=== PATIENT | female | born 2000 | race Caucasian/White ===

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

== ENCOUNTER 2018-01-05 21:24 | Emergency (ER) | payer BC, SELFPAY ==
[2018-01-05 21:25] VITALS: BP 123/92; PULSE 110; RESP 14; TEMP 37.1; O2SAT 98; BMI 23.2
[2018-01-05 22:36] VITALS: PULSE 97
--- NOTE | 2018-01-05 23:18 | ED.DCSUM_ITS ---
- ER Visit Summary Date of Service: 01/05/18 Chief Complaint: Fall History of Present Illness: The patient is a [address] Faulkner and Dr. Ocasio. She is a at 11 weeks. She reports that she tripped and landed on table with her abdomen. She denies any pain. No blow to the head or loss of consciousness. No neck, back, chest, or extremity pain. She has had no vaginal bleeding. She reports that I just want to check on the baby. Physical Examination: Vitals: Stable. Afebrile. Neck: No vertebral tenderness. Full ROM without difficulty. Cleared by NEXUS criteria. Back: No vertebral tenderness. General: A&O x 3. NAD. Cardiovascular exam: Regular rate and rhythm, no murmur, rub or gallop. Respiratory exam: Chest nontender. No crepitus. Clear to auscultation bilaterally. No wheezes or stridor. Abdominal exam: Soft, minimal suprapubic tenderness to palpation, nondistended, normal bowel sounds. No pain in RUQ or LUQ specifically. No peritoneal signs. Extremity: Atraumatic. No pain with range of motion. Test Results: Patient's blood type was a positive. This is from a prior visit and was not repeated. Emergency Department Course and Treatment: Patient had a bedside ultrasound that shows good movement and heartbeat. She was given Tylenol for pain. Treatment Plan: Patient will be discharged instructions to follow-up with Dr. Faulkner if she has vaginal bleeding or any worsening symptoms. Return to the emergency department for any worsening symptoms. Disposition: To home in improved and stable condition. Impression: 1. First trimester . 2. Blunt abdominal trauma. This note was generated with [employer] software. It may contain incorrect words, spelling, and punctuation that were not noted in review of the chart prior to signing ED Disposition - Plan for ED Patient: Disposition: Home or Assisted Living Chief Complaint: Fall Instructions: ED Abdominal Injury Blunt Benign Referrals: Mailck Faulkner MD [STAFF PHYSICIAN] - As Needed
[2018-01-05] MEDS: Acetaminophen 500 MG Tablet 1000 MG PO (23:30)
[2018-01-05 23:33] VITALS: BP 129/75; PULSE 68; RESP 17; O2SAT 99
== END 2018-01-05 23:32 | disposition home or self-care (01) ==
LOC: ED 22:59
PROVIDERS: Emergency Provider Emergency Medicine; PCP Internal Medicine
DX: O99.89 Other specified diseases and conditions complicating pregnancy, childbirth and the puerperium (principal); S39.81XA Other specified injuries of abdomen, initial encounter; W01.0XXA Fall on same level from slipping, tripping and stumbling without subsequent striking against object, initial encounter; Y93.9 Activity, unspecified; Y92.9 Unspecified place or not applicable; O99.331 Smoking (tobacco) complicating pregnancy, first trimester; Z3A.11 11 weeks gestation of pregnancy
CPT/HCPCS: 99283

== ENCOUNTER → 2018-01-23 17:50 | Outpatient (CLI) | payer BC, SELFPAY ==
[2018-01-23 20:59] LABS: Chlamydia Trachomatis by PCR Negative (Negative); Neisserai gonorrhoeae by PCR Negative (Negative); Probe Check PASS; Sample Adequacy Control PASS; Specimen Processing Control PASS
== END ==
PROVIDERS: Visit Provider Obstetrics & Gynecology
DX: A56.00 Chlamydial infection of lower genitourinary tract, unspecified (principal); Z11.3 Encounter for screening for infections with a predominantly sexual mode of transmission
CPT/HCPCS: 87491; 87591

== ENCOUNTER → 2018-05-05 10:57 | Outpatient (CLI) | payer MEDICAID, SELFPAY ==
[2018-05-05 13:43] LABS: Hematocrit 33.7 % (37-47); Hemoglobin 11.3 g/dl (12.0-15.0); Mean Corp Hgb Conc 33.5 g/gl (32-36); Mean Corpuscular Volume 86.6 fL (81-99); Mean Platelet Vol. 9.8 fl (6.2-12.0); Platelet Count 211 K/mm3 (150-450); RBC Distribution Width SD 40.5 fl (35.1-43.9); Red Blood Count 3.89 M/mm3 (4.2-5.4); Scan Indicated on CBC? Y/N NO; White Blood Count 9.4 K/mm3 (4.4-11.0)
[2018-05-05 13:46] LABS: Glucose Challenge Gest 1H 50g 103 mg/dL (70-140)
== END ==
PROVIDERS: Visit Provider Obstetrics & Gynecology
DX: Z34.82 Encounter for supervision of other normal pregnancy, second trimester (principal)
CPT/HCPCS: 36415; 82950; 85027

== ENCOUNTER → 2018-05-26 16:07 | Outpatient (CLI) | payer MEDICAID, SELFPAY ==
[2018-05-26 19:01] LABS: Neisserai gonorrhoeae by PCR Negative (Negative)
[2018-05-26 19:02] LABS: Probe Check PASS
[2018-05-26 19:03] LABS: Chlamydia Trachomatis by PCR POSITIVE (Negative)
--- OUTSIDE RECORDS SUMMARY | 2018-07-08 14:43 | XMS RPT_ITS ---
:2000 Author Organization [facility] Care Team Providers Name Role Phone LALITA, MARK Attending Unavailable MERLIN OCASIO Referring Unavailable MERLIN OCASIO Primary Care Unavailable SEALSADOLFO Referring Unavailable MERLIN OCASIO Primary Care Unavailable ZACH, PETRA T Attending Unavailable ZACH PETRA T Referring Unavailable MERLIN OCASIO Primary Care Unavailable DAVID MOSQUEDA Attending Unavailable Abraham Cr Attending Unavailable JIMMY HENAO Primary Care Unavailable Seals, Adolfo Attending Unavailable Seals, Adolfo Attending Unavailable Abraham Cr Attending Unavailable Seals, Adolfo Attending Unavailable Seals, Adolfo Referring Unavailable Seals, Adolfo Attending Unavailable Seals, Adolfo Attending Unavailable PROBLEMS PROBLEMS DATE TYPE CONDITION / CODE ATTENDING STATUS SOURCE 05/26/2018 Unknown Z11.3 - Encounter Adolfo Faulkner for screening for Community infections with a Hospital predominantly Repository sexual mode of transmission / Z11.3(ICD-10) 05/05/2018 Unknown Z34.82 - Encounter Adolfo Faulkner for supervision of Community other normal Hospital , second Repository trimester / Z34.82(ICD-10) 01/24/2018 Unknown A56.00 - Chlamydial Adolfo Faulkner Active [place] infection of lower [facility] genitourinary Hospital tract, unspecified Repository / A56.00(ICD-10) 12/27/2017 Unknown Z34.81 - Encounter Adolfo Faulkner Active [place] for supervision of [facility] other normal Hospital , first Repository trimester / Z34.81(ICD-10) PROCEDURES PROCEDURES No Procedure Records FoundRESULTS RESULTS EMERGENCY DEPARTMENT Observed: 06/12/2018 Status: F Source: [place] SUMMARY 1:05 AM [facility] H[facility] REPOSITORY [facility] Medical Records Department [address] [place] [address] Emergency Department Summary 06/10/18 0844 MR#: [id number] Acct: [id number] Name: ROSIBEL ESPINOZA Rep #: [id number] : 2000 17 From: Abraham Cr MD PCP: OUT OF TOWN DOCTOR Status: DEP ER - ER Visit Summary Date of Service: 06/10/18 Chief Complaint: Vomiting and diarrhea History of Present Illness: The patient is a [address] Faulkner. She is a at approximately 33 weeks . She reports that she has normal movement. No vaginal bleeding. She reports that she has vomiting and diarrhea began 4:00 yesterday afternoon. She reports is about approximate 10 times. No blood or emesis. 4 episodes of diarrhea that she reports are small amounts. No blood in her stools or black tarry stools. She has intermittent cramping lower abdominal pain that lasts seconds at a time. She describes it as sharp. States that it does not feel like contractions. 7 out of 10 at worst. She is pain-free currently. Pain is worsened by nothing and relieved by nothing. Patient denies sick contacts. Has not been camping out of the country. No possible bad food exposure. Does not drink well water. Physical Examination: Vitals: Stable. Afebrile. General: Well-nourished and well-developed. Head: Normocephalic atraumatic. Neck: Supple, no lymphadenopathy. No JVD. Nontender. Cardiovascular: Tachycardic regular rhythm without murmur. Respiratory: No respiratory distress. Clear to auscultation bilaterally. Abdominal: Soft, mild diffuse lower abdominal tenderness, nondistended, normal bowel sounds. No guarding, rebound, or peritoneal signs. Gravid uterus. Back: Nontender. Extremities: Nontender, no edema. Skin: Normal color, no rash. Neurologic: Alert and oriented 3. Cranial nerves II through XII are intact. Normal strength and sensation. Psych: Normal affect. Test Results: CBC is remarkable for a white count of 12.7, hematocrit of 36.6, segmented neutrophils of 90, and lymphocytes of 3. Chem-7 is marked for a potassium 3.4, glucose 116, calcium of 8.0. Emergency Department Course and Treatment: Patient had an IV placed. She is given a 2 L of normal saline and Zofran IV. She is resting comfortably. She reports that her nausea is much improved. Treatment Plan: Patient will be discharged with Zofran. Instructed to follow-up with her primary care physician in 1-2 days if not improving. Return to the emergency department for any worsening symptoms. Disposition: To home in improved and stable condition. Impression: 1. Vomiting/diarrhea. 2. Third trimester . This note was generated with Promon dictation software. It may contain incorrect words, spelling, and punctuation that were not noted in review of the chart prior to signing ED Disposition - Plan for ED Patient: Chief Complaint: Nausea/Vomiting/Diarrhea Instructions: ED Vomiting Diarrhea Nonspecific Ad Prescriptions: Ondansetron [Zofran Odt] 4 mg PO Q8H PRN PRN #10 tablet PRN Reason: Nausea Referrals: Doctor,Your [STAFF PHYSICIAN] - 1-2 Days if not improving What to do if you have Problems For any increased pain, shortness of breath, bleeding, nausea or vomiting, chest pain, or any unexpected problems, contact your Primary Care Provider. Call [facility] ([phone]) or report to the closest Emergency Room. Call 911 if necessary. 06/12/18 0105 <Electronically signed by Abraham Cr MD> Date Abraham Cr MD Cosigner Signature (If Indicated): Date CC: OUT OF TOWN DOCTOR CBC W/DIFF, AUTOMATED Collected: 06/10/2018 Status: F Source: [place] 9:05 AM [facility] REPOSITORY TYPE CODE TESTS RESULT OUT OF RANGE REFERENCE UNITS LAB L100.1000 4.4-11.0 K/mm3 High WBC 12.7 LAB L100.1200 4.2-5.4 M/mm3 Low RBC 4.16 LAB L100.1300 12.0-15.0 g/dl Normal HGB 12.1 LAB L100.1400 37-47 % Low HCT 36.6 LAB L100.1500 81-99 fL Normal MCV 88.0 LAB L100.1600 27.0-32.0 pg Normal MCH 29.1 LAB L100.1700 32-36 g/gl Normal MCHC 33.1 LAB L100.1810 11.6-14.6 % Normal RDW CV 14.0 LAB L100.1820 35.1-43.9 fl Normal RDW SD 43.7 LAB L100.1900 150-450 K/mm3 Normal PLT 166 LAB L100.2000 6.2-12.0 fl Normal MPV 9.5 LAB L100.2100 47-70 % High NEUT% 90.3 LAB L100.2200 19-41 % Low LY% 3.3 LAB L100.2300 0-10 % Normal MONO% 5.8 LAB L100.2400 0-5 % Normal EO% 0.0 LAB L100.2500 0-1 % Normal BASO% 0.1 LAB L100.2550 0.0-0.9 % Normal IM GRAN % 0.500 Result Comment: IG% - Immature Granulocytes (promyelocytes, myelocytes and metamyelocytes) > 1% indicates that a LEFT SHIFT is Present. LAB L100.2620 2.0-7.7 X10 3/uL High Absolute Neut 11.5 LAB L100.2720 0.83-4.51 X10 3/ul Low Absolute Lymph 0.42 Performed By: #### L100.0100 #### [facility] [place], [id number] BASIC METABOLIC Collected: 06/10/2018 Status: F Source: [place] PROFILE (BMP) 9:05 AM [facility] REPOSITORY TYPE CODE TESTS RESULT OUT OF RANGE REFERENCE UNITS LAB L501.0100 74-106 mg/dL High GLU 116 Result Comment: Fasting Glucose result from 100 to 125 mg/dL suggests IMPAIRED HOMEOSTASIS per A.D.A. criteria. Please note revised GLUCOSE reference range effective 2017. LAB L501.1000 7-18 mg/dL Normal BUN 9 LAB L501.1100 0.55-1.02 mg/dL Normal CREAT,SERUM 0.57 Result Comment: The validity of the calculated GFR AND GFRAA in patients over 70 years has not been determined. Clinical correlation is essential. LAB L501.1110 >60 mL/min Normal EST GFR 144 Result Comment: Non- GFR Calc LAB L501.1115 >60 mL/min Normal EST GFR - AA 174 Result Comment: GFR Calc LAB L501.1255 ml/min Normal Estimated CRCL 131.32 LAB L501.1300 10-20 RATIO BUN/CRE Normal 15.8 LAB L501.2200 8.5-10 mg/dL Low .1 CA 8.0 LAB L501.5300 136-14 mmol/L 5 NA Normal 137 LAB L501.5600 3.5-5. mmol/L Low 1 K 3.4 LAB L501.5900 98-107 mmol/L CL Normal 104 LAB L501.6100 21.0-3 mmol/L 2.0 CO2 Normal 23.0 LAB L501.6200 5-15 GAP Normal 10 Performed By: #### L500.2500 #### [facility] [address] [place], [place], [address] CT/NG [facility] BY PCR Collected: 05/26/2018 Status: C Source: [place] 2:00 PM [facility] REPOSITORY TYPE CODE TESTS RESULT OUT OF REFERENCE UNITS RANGE LAB L8200.2100 Negative High Chlam POSITIVE Trac PCR Result Comment: SENT TO 05-26-18 AT 1902PM LAB L8200.2200 Negative Normal Negative NG by PCR Performed By: #### L8200.2000 #### [facility] [address] [place], [place], [address] CBC-COMPLETE BLOOD CNT Collected: 05/05/2018 Status: F Source: [place] NO DIFF 11:15 AM [facility] REPOSITORY TYPE CODE TESTS RESULT OUT OF RANGE REFERENCE UNITS LAB L100.1000 4.4-11.0 K/mm3 Normal WBC 9.4 LAB L100.1200 4.2-5.4 M/mm3 Low RBC 3.89 LAB L100.1300 12.0-15.0 g/dl Low HGB 11.3 LAB L100.1400 37-47 % Low HCT 33.7 LAB L100.1500 81-99 fL Normal MCV 86.6 LAB L100.1600 27.0-32.0 pg Normal MCH 29.0 LAB L100.1700 32-36 g/gl Normal MCHC 33.5 LAB L100.1810 11.6-14.6 % Normal RDW CV 13.0 LAB L100.1820 35.1-43.9 fl Normal RDW SD 40.5 LAB L100.1900 150-450 K/mm3 Normal PLT 211 LAB L100.2000 6.2-12.0 fl Normal MPV 9.8 Performed By: #### L100.0500 #### [facility] [address] [place], [place], [address] GLUCOSE CHALLENGE GEST Collected: 05/05/2018 Status: F Source: [place] 1H 50G 11:15 AM [facility] REPOSITORY TYPE CODE TESTS RESULT OUT OF RANGE REFERENCE UNITS LAB L501.0250 70-140 mg/dL Normal GLU GEST 103 50g 1H Performed By: #### L501.0250 #### [facility] [address] [place], [address] PROGRESS NOTE Observed: 05/02/2018 Status: COMPLETED Source: [place] 10:00 AM [facility] REPOSITORY Patient was seen by [facility] for bilateral club feet. The total patient time of the visit was 15 minutes, of which greater than 50% of the time was spent counseling and coordinating care. PROGRESS NOTE Observed: 05/02/2018 Status: COMPLETED Source: [place] 9:00 AM [facility] CHIEF COMPLAINT: clubfoot evaluation. HISTORY OF PRESENT ILLNESS: Rosibel Espinoza is a 17 y.o.-year-old female who is with her first child. She has been seen in the treatment center and her baby has been diagnosed as having a clubfoot by ultrasound without any other abnormalities identified. She has been sent to my office for further evaluation and management. Rosibel reports that her so far has been going quite well and she has not had any complications. There is a family history of clubfoot on the father's side of the family. Otherwise, she and her have had a chance to look up some information about clubfoot, specifically Ponseti method and feel quite up to date in that regard. REVIEW OF SYSTEMS: Review of systems is negative for other significant musculoskeletal pain, loss of vision, hearing loss, high blood pressure, shortness of breath, skin ulcers, paresthesia, lymphedema, temperature intolerance, or nausea, unless otherwise stated in the history of present illness or past medical history. X-RAYS: I reviewed the ultrasound report from her last visits with the project safety manager indicating an isolated clubfoot on the fetus with no other abnormalities identified. DIAGNOSIS/IMPRESSION: clubfoot. DISCUSSION/TREATMENT PLAN: At this time, I discussed Ponseti method clubfoot treatment at length with Rosibel including casting, possible tenotomy, long-term bracing, possible anterior tibial tendon transfer and long- term outlook. All of her questions were answered today and she agrees to comply with full Ponseti method treatment including all of the above named treatments especially bracing until at least age 2. Rosibel is due in July of 2018 and I will have her contact my office after the baby is born for an evaluation appointment after discharge from the hospital. I certainly would be happy to speak with them sooner should they have any questions. I will likely institute her baby s Ponseti casting shortly thereafter once I have had a chance to see the baby after and complete a full orthopaedic evaluation. Counseling and/or coordination of care was greater than 20 minutes which is more than 50% of the total time of 20 minutes spent on the encounter. CT/NG [facility] BY PCR Collected: 01/23/2018 Status: F Source: [place] 3:40 PM [facility] REPOSITORY TYPE CODE TESTS RESULT OUT OF RANGE REFERENCE UNITS LAB L8200.2100 Negative Normal Chlam Negative Trac PCR LAB L8200.2200 Negative Normal NG by Negative PCR Performed By: #### L8200.1999 #### [facility] [address] [place], [address] EMERGENCY DEPARTMENT Observed: 01/06/2018 Status: F Source: [place] SUMMARY 2:21 AM [facility] REPOSITORY [facility] Medical Records Department [address] [place] [address] Emergency Department Summary 01/05/18 2316 MR#: [id number] Acct: [id number] Name: ROSIBEL ESPINOZA Rep #: [id number] : 2000 17 From: Abraham Cr MD PCP: Dwaine Ocasio DO Status: DEP ER - ER Visit Summary Date of Service: 01/05/18 Chief Complaint: Fall History of Present Illness: The patient is a [address] Faulkner and Dr. Ocasio. She is a at 11 weeks. She reports that she tripped and landed on table with her abdomen. She denies any pain. No blow to the head or loss of consciousness. No neck, back, chest, or extremity pain. She has had no vaginal bleeding. She reports that I just want to check on the baby. Physical Examination: Vitals: Stable. Afebrile. Neck: No vertebral tenderness. Full ROM without difficulty. Cleared by NEXUS criteria. Back: No vertebral tenderness. General: A AND O x 3. NAD. Cardiovascular exam: Regular rate and rhythm, no murmur, rub or gallop. Respiratory exam: Chest nontender. No crepitus. Clear to auscultation bilaterally. No wheezes or stridor. Abdominal exam: Soft, minimal suprapubic tenderness to palpation, nondistended, normal bowel sounds. No pain in RUQ or LUQ specifically. No peritoneal signs. Extremity: Atraumatic. No pain with range of motion. Test Results: Patient's blood type was a positive. This is from a prior visit and was not repeated. Emergency Department Course and Treatment: Patient had a bedside ultrasound that shows good movement and heartbeat. She was given Tylenol for pain. Treatment Plan: Patient will be discharged instructions to follow-up with Dr. Faulkner if she has vaginal bleeding or any worsening symptoms. Return to the emergency department for any worsening symptoms. Disposition: To home in improved and stable condition. Impression: 1. First trimester . 2. Blunt abdominal trauma. This note was generated with Austin-Tetraation software. It may contain incorrect words, spelling, and punctuation that were not noted in review of the chart prior to signing ED Disposition - Plan for ED Patient: Disposition: Home or Assisted Living Chief Complaint: Fall Instructions: ED Abdominal Injury Blunt Benign Referrals: Adolfo Faulkner MD [STAFF PHYSICIAN] - As Needed What to do if you have Problems For any increased pain, shortness of breath, bleeding, nausea or vomiting, chest pain, or any unexpected problems, contact your Primary Care Provider. Call [facility] ([phone]) or report to the closest Emergency Room. Call 911 if necessary. 01/06/18 0221 <Electronically signed by Abraham Cr MD> Date Abraham Cr MD Cosigner Signature (If Indicated): Date CC: Dwaine Ocasio DO URINE DRUG SCREEN Collected: 12/26/2017 Status: F Source: [place] (LOCO) 3:27 PM [facility] REPOSITORY Order Comment: List of Drugs Taken or Suspected? UNK TYPE CODE TESTS RESULT OUT OF RANGE REFERENCE UNITS LAB L505.0075 TO BE Normal CONFIRMED Result Comment: CONFIRMATORY TESTING FOR ALL POSITIVE URINE DRUG SCREEN RESULTS WILL ONLY BE SENT OUT UPON PHYSICIAN ORDER. VISTA Urine Drug Screen methods provide only preliminary analytical test results. A more specific alternate chemical method must be used in order to obtain a confirmed analytical result. Gas chromatography/mass spectrometery (GC/MS) is the preferred confirmatory method. Clinical consideration and professional judgement should be applied to any drug of abuse test result, particularly when preliminary positive results are used. URINE TCA TESTING MUST BE ORDERED SEPARATELY. USE TEST MNEMONIC: [facility] LAB L505.5005 VISTA UDS PH 6 Normal LAB L505.5015 <1000 ng/mL AMPHETAMINES Normal NEGATIVE LAB L505.5025 < 200 ng/mL BARBITIURATES Normal NEGATIVE LAB L505.5035 < 200 ng/mL BENZODIAZIPINE Normal NEGATIVE LAB L505.5045 < 300 ng/mL COCAINE Normal NEGATIVE LAB L505.5055 < 500 ng/mL ECSTACY Normal NEGATIVE LAB L505.5065 < 300 ng/mL METHADONE Normal NEGATIVE LAB L505.5075 < 300 ng/mL OPIATES Normal NEGATIVE LAB L505.5085 < 25 ng/mL PCP Normal NEGATIVE LAB L505.5095 < 50 ng/mL THC Normal NEGATIVE Performed By: #### L505.5000, L505.6240 #### [facility] [address] [place], [place], [address] NICOTINE URINE DRUG Collected: 12/26/2017 Status: F Source: [place] SCREEN 3:27 PM [facility] REPOSITORY Order Comment: List of Drugs Taken or Suspected? UNK TYPE CODE TESTS RESULT OUT OF RANGE REFERENCE UNITS LAB L505.6250 TO BE Normal CONFIRMED Result Comment: CONFIRMATORY TESTING FOR ALL POSITIVE URINE DRUG SCREEN RESULTS WILL ONLY BE SENT OUT UPON PHYSICIAN ORDER. The results of Urine Drug Screen methods provide only preliminary analytical test results. A more specific alternate chemical method must be used in order to obtain a confirmed analytical result. Gas chromatography/mass spectrometery (GC/MS) is the preferred confirmatory method. Clinical consideration and professional judgement should be applied to any drug of abuse test result, particularly when preliminary positive results are used. LAB L505.6270 <200 ng/mL High COT DRG Positive SCREEN Result Comment: Cotinine is the first-stage metabolite of Nicotine. Performed By: #### L505.5000, L505.6240 #### [facility] [address] [place], [address] CBC W/DIFF, AUTOMATED Collected: 12/26/2017 Status: F Source: [place] 3:27 PM [facility] REPOSITORY TYPE CODE TESTS RESULT OUT OF RANGE REFERENCE UNITS LAB L100.1000 4.4-11.0 K/mm3 Normal WBC 9.7 LAB L100.1200 4.2-5.4 M/mm3 Normal RBC 5.16 LAB L100.1300 12.0-15.0 g/dl Normal HGB 14.0 LAB L100.1400 37-47 % Normal HCT 42.2 LAB L100.1500 81-99 fL Normal MCV 81.8 LAB L100.1600 27.0-32.0 pg Normal MCH 27.1 LAB L100.1700 32-36 g/gl Normal MCHC 33.2 LAB L100.1810 11.6-14.6 % Normal RDW CV 13.0 LAB L100.1820 35.1-43.9 fl Normal RDW SD 38.4 LAB L100.1900 150-450 K/mm3 Normal PLT 232 LAB L100.2000 6.2-12.0 fl Normal MPV 9.9 LAB L100.2100 47-70 % High NEUT% 72.3 LAB L100.2200 19-41 % Low LY% 18.2 LAB L100.2300 0-10 % Normal MONO% 7.2 LAB L100.2400 0-5 % Normal EO% 1.9 LAB L100.2500 0-1 % Normal BASO% 0.3 LAB L100.2550 0.0-0.9 % Normal IM GRAN % 0.100 Result Comment: IG% - Immature Granulocytes (promyelocytes, myelocytes and metamyelocytes) > 1% indicates that a LEFT SHIFT is Present. LAB L100.2620 2.0-7.7 X10 3/uL Normal Absolute Neut 7.0 LAB L100.2720 0.83-4.51 X10 3/ul Normal Absolute Lymph 1.77 Performed By: #### L100.0100 #### [facility] [address] [facility] [place], [address] URINALYSIS, ROUTINE Collected: 12/26/2017 Status: F Source: [place] (DIPSTICK) 3:27 PM [facility] REPOSITORY Order Comment: How was Urine Obtained? CLEAN CATCH TYPE CODE TESTS RESULT OUT OF RANGE REFERENCE UNITS LAB L400.3000 Yellow COLOR Normal Yellow LAB L400.3050 Clear Normal CLARITY Clear LAB L400.3200 Normal mg/dl Normal GLUCOSE, UR Normal LAB L400.3300 Negative mg/dL Normal BILIRUBIN URINE Negative LAB L400.3400 Negative mg/dl High 5 KETONE UR LAB L400.3465 1.002-1.030 Normal SP.GR. DIPSTX 1.020 LAB L400.3550 5.0 - 8.0 pH UR Normal 6.0 LAB L400.3600 Negative mg/dl High PROT 15 DIPSTX LAB L400.3700 Normal mg/dl High 1 UROBILI LAB L400.3750 Negative Normal NITRITE UR Negative LAB L400.3780 Negative /ul High 10 OCCULT BLOOD-UR LAB L400.3800 Negative /ul High LEUK 25 ESTERASE Performed By: #### L400.2010 #### [facility] [address] [place] [place], [address] THYROID STIM HORMONE Collected: 12/26/2017 Status: F Source: [place] (TSH) 3:27 PM [facility] REPOSITORY TYPE CODE TESTS RESULT OUT OF RANGE REFERENCE UNITS LAB L501.9520 0.358-3.74 uIU/mL Low TSH 0.19 Performed By: #### L501.9520 #### [facility] [address] [facility] [place], [address] T AND S-NO Collected: 12/26/2017 Status: F Source: [place] CHARGE W/PNP 3:27 PM [facility] REPOSITORY Order Comment: Reason for Type AND Screen/Red Cells: Surgery? N TYPE CODE TESTS RESULT OUT OF RANGE REFERENCE UNITS LAB B10.0800 A Normal BLOOD POSITIVE TYPE GEL LAB B100.4050 Normal Ab SCREEN NEGATIVE GEL Performed By: #### B100.7550 #### [facility] [address] [facility] [place], [place], [address] RPR Collected: 12/26/2017 Status: F Source: [place] 3:27 PM [facility] REPOSITORY TYPE CODE TESTS RESULT OUT OF REFERENCE UNITS RANGE LAB L700.5100 NONREACTIVE Normal RPR NONREACTIVE Performed By: #### L700.5100 #### [facility] [address] [facility] [place], [address] RUBELLA IGG Collected: 12/26/2017 Status: F Source: [place] 3:27 PM [facility] REPOSITORY TYPE CODE TESTS RESULT OUT OF RANGE REFERENCE UNITS LAB L509.4000 IU/mL Normal Rubella IgG 226.3 Result Comment: Antibody results Interpretation of Immune Status < 5 IU/ml Presumed Non-immune 5 - < 10 IU/ml Equivocal > or = 10 IU/ml Presumed Immune Performed By: #### L509.4000, L3890.6005 #### [facility] [address] [place], [place], [address] HIV - [facility] Collected: 12/26/2017 Status: F Source: [place] 3:27 PM [facility] REPOSITORY TYPE CODE TESTS RESULT OUT OF RANGE REFERENCE UNITS LAB L3890.6005 Nonreactive Normal HIV - [facility] Non-Reactive Performed By: #### L509.4000, L3890.6005 #### [facility] [address] [place], [place], [address] HEPATITIS B SURFACE Collected: 12/26/2017 Status: F Source: [place] AG 3:27 PM [facility] REPOSITORY TYPE CODE TESTS RESULT OUT OF RANGE REFERENCE UNITS LAB L3100.0400 Negative Normal HB Negative SURF AG Result Comment: Performed at: [facility] [address] [id number] Datawarehouse Developer: Dominik Nicholson PhD, Phone: [phone] Performed By: #### L3100.0390, L3100.0625, L3400.0000 #### [facility] (refer to report for specific site) refer to report for address and phone number HEPATITIS C ANTIBODIES Collected: 12/26/2017 Status: F Source: [place] 3:27 PM [facility] REPOSITORY TYPE CODE TESTS RESULT OUT OF RANGE REFERENCE UNITS LAB L3100.0650 0.0-0.9 s/co ratio Normal HEP C AB <0.1 Result Comment: Negative: < 0.8 Indeterminate: 0.8 - 0.9 Positive: > 0.9 The CDC recommends that a positive HCV antibody result be followed up with a HCV Nucleic Acid Amplification test (170463). Performed By: #### L3100.0390, L3100.0625, L3400.0000 #### [facility] (refer to report for specific site) refer to report for address and phone number V-ZOSTER IGG Collected: 12/26/2017 Status: F Source: [place] (IMMUNITY) 3:27 PM [facility] REPOSITORY TYPE CODE TESTS RESULT OUT OF RANGE REFERENCE UNITS LAB L3400.0000 Immune >165 index Normal VZOST IgG [id number] Result Comment: Negative <135 Equivocal 135 - 165 Positive >165 A positive result generally indicates exposure to the pathogen or administration of specific immunoglobulins, but it is not indication of active infection or stage of disease. Performed By: #### L3100.0390, L3100.0625, L3400.0000 #### [facility] (refer to report for specific site) refer to report for address and phone number CT/NG [facility] BY PCR Collected: 12/13/2017 Status: F Source: [place] 11:35 AM [facility] REPOSITORY TYPE CODE TESTS RESULT OUT OF RANGE REFERENCE UNITS LAB L8200.2100 Negative High Chlam POSITIVE Trac PCR LAB L8200.2200 Negative Normal NG by Negative PCR Performed By: #### L8200.1999 #### [facility] [address] [place], [address] ALLERGIES ALLERGIES DATE TYPE / CODE NAME / CODE REACTION SEVERITY SOURCE 06/10/2018 Drug No Known Unknown [place] Allergy/[id number](S Allergies/F0019 [facility] [place]OM[place]) [address](RXNORM) Hospital Repository Miscellaneous NO KNOWN [place] Allergy/[id number](S ALLERGIES [facility] NOMED CT) Hospital Repository ENCOUNTERS ENCOUNTERS ADMIT/DISCHARGE ACCOUNT ADMITTING ENCOUNTER LOCATION SOURCE NUMBER CLASS 06/10/2018/06/10/20 [id number] Emergency [address] ing:ED Repository 06/03/2018/06/03/20 [id number] Ambulatory Building:[address] Repository 05/26/[id number] [facility] ing:LABSPEC Repository 05/05/[id number] [facility] ing:WOBLAB Repository 05/02/2018/05/02/20 [id number] Ambulatory Building:[address] Repository 05/02/2018/05/02/20 [id number] Ambulatory Building:[address] Repository 01/23/[id number] [facility] ing:LABSPEC Repository 01/05/2018/01/06/20 [id number] Emergency [address] ing:ED Repository 12/26/[id number] [facility] ing:WOBLAB Repository 12/13/2017 [id number] [facility] ing:LABSPEC Repository PAYERS PAYERS ENCOUNTER GUARANTOR PAYER SUBSCRIBER SOURCE 06/10/2018 ROSIBEL M Primary IAIN N TROLIODOB: [place] [id number] Insurance:[employer] [id number] [place] Number: Hospital [address]Xhy: (251) [id number] Repository [phone] (HP) Date:7185-13-84PU [address] [place] [address] 58[address]YE: 06/10/2018 Secondary ROSIBEL M [place] Insurance:[facility] TROLIODOB: [facility] [id number] Hospital Number: Repository [id number] Date:3457-23-20AB [address] [place] [address] 45883RX: 06/10/2018 Tertiary NOT GIVENUNK [place] Insurance:SELF PAY [facility] Number: Effective Repository Date:2018-06-10 06/03/2018 ROSIBEL ANNE Primary Insurance:[facility] OMID [place] [facility] TROLIODOB: [facility] TROLIODOB: Hospital [facility] [id number] Repository [facility], Number: [address] [place] [address]Dlx: [id number] [place], [place] Date: [address] (HP) 05/26/2018 ROISBEL M Primary Insurance:[facility] ROSIBEL M [place] [id number] [facility] TROLIODOB: [place] Number: [id number] Hospital [address]Pfl: 330 [id number] Repository [phone] (HP) Date:[id number] [address]VN: 05/26/2018 Secondary NOT GIVENUNK [place] Insurance:SELF PAY [facility] Number: Effective Repository Date:2018-05-26 05/05/2018 ROSIBEL Barker Primary Insurance:[facility] ROSIBEL Barker [place] [id number] [facility] TROLIODOB: [place] Number: [id number] [facility] [address]Tgx: [phone] [id number] Repository [phone] (HP) Date:1326-01-78RV [address] [place] [address]YQ: 05/05/2018 Secondary NOT GIVENUNK [place] Insurance:SELF PAY [facility] Number: Effective Repository Date:2018-05-05 05/02/2018 PETRA Moss Primary Insurance:[place] ROSIBEL ANNE [place] [facility]'s TROLIODOB: [facility] TROLIODOB: Hospital [facility] [id number] Repository [facility], Number: [address] [place] [address]Elg: [id number] [place], [place] Date: [address] (HP) 05/02/2018 PETRA Moss Primary Insurance:[facility] OMID [place] [facility]'s TROLIODOB: [facility] TROLIODOB: [facility] [id number] Repository [facility], Number: [address] [place] [address]Vzu: [id number] [place], [place] Date: [address] (HP) 01/23/2018 ROSIBEL Barker Primary IAIN N TROLIOUNK [place] [id number] Insurance:[facility] [place] y Number: [place], [place] [id number] Repository [address]Poz: 330) Date:0694-25-53HE [phone] (HP) [place], [place] [address]MB: 01/23/2018 Secondary NOT GIVENUNK [place] Insurance:SELF PAY [facility] Number: Effective Repository Date:2018-01-23 01/05/2018 ROSIBEL Barker Primary IAIN N TROLIOUNK [place] [id number] Insurance:[employer] Community [place] Number: [place], [place] [id number] Repository [address]Mbg: (330) Date:1956-70-25BF [phone] () [address], [place] [address]XX: 01/05/2018 Secondary NOT GIVENUNK [place] Insurance:SELF PAY [facility] Number: Effective Repository Date:2018-01-05 12/26/2017 BOB Primary IAIN N STEPHANE Young [id number] Insurance:[employer] Community [place] Number: [facility], [id number] [place]ository [place] [address]Gnm: Date:3641-94-42RB [address], [place] () [address]HI: 12/26/2017 Secondary NOT GIVENUNK [place] Insurance:SELF PAY [facility] Number: Effective Repository Date:2017-12-26 12/13/2017 BOB Primary IAIN N STEPHANE Young [id number] Insurance:[employer] Community [place] Number: [facility], [id number] Repository [place] [address]Hmc: Date:6658-35-11AH [address], [place] () [address]KZ: 12/13/2017 Secondary NOT GIVENUNK [place] Insurance:SELF PAY [facility] Number: Effective Repository Date:2017-12-13
== END ==
PROVIDERS: Visit Provider Obstetrics & Gynecology
DX: Z11.3 Encounter for screening for infections with a predominantly sexual mode of transmission (principal)
CPT/HCPCS: 87491; 87591

== ENCOUNTER 2018-06-10 08:19 | Emergency (ER) | payer BC, MEDICAID, SELFPAY ==
[2018-06-10 08:20] VITALS: BP 127/73; PULSE 139; RESP 16; TEMP 37.1; O2SAT 93; BMI 27.1
--- NOTE | 2018-06-10 08:47 | ED.DCSUM_ITS ---
- ER Visit Summary Date of Service: 06/10/18 Chief Complaint: Vomiting and diarrhea History of Present Illness: The patient is a [address] Faulkner. She is a at approximately 33 weeks . She reports that she has normal movement. No vaginal bleeding. She reports that she has vomiting and diarrhea began 4:00 yesterday afternoon. She reports is about approximate 10 times. No blood or emesis. 4 episodes of diarrhea that she reports are small amounts. No blood in her stools or black tarry stools. She has intermittent cramping lower abdominal pain that lasts seconds at a time. She describes it as sharp. States that it does not feel like contractions. 7 out of 10 at worst. She is pain-free currently. Pain is worsened by nothing and relieved by nothing. Patient denies sick contacts. Has not been camping out of the country. No possible bad food exposure. Does not drink well water. Physical Examination: Vitals: Stable. Afebrile. General: Well-nourished and well-developed. Head: Normocephalic atraumatic. Neck: Supple, no lymphadenopathy. No JVD. Nontender. Cardiovascular: Tachycardic regular rhythm without murmur. Respiratory: No respiratory distress. Clear to auscultation bilaterally. Abdominal: Soft, mild diffuse lower abdominal tenderness, nondistended, normal bowel sounds. No guarding, rebound, or peritoneal signs. Gravid uterus. Back: Nontender. Extremities: Nontender, no edema. Skin: Normal color, no rash. Neurologic: Alert and oriented ?3. Cranial nerves II through XII are intact. Normal strength and sensation. Psych: Normal affect. Test Results: CBC is remarkable for a white count of 12.7, hematocrit of 36.6, segmented neutrophils of 90, and lymphocytes of 3. Chem-7 is marked for a potassium 3.4, glucose 116, calcium of 8.0. Emergency Department Course and Treatment: Patient had an IV placed. She is given a 2 L of normal saline and Zofran IV. She is resting comfortably. She reports that her nausea is much improved. Treatment Plan: Patient will be discharged with Zofran. Instructed to follow-up with her primary care physician in 1-2 days if not improving. Return to the emergency department for any worsening symptoms. Disposition: To home in improved and stable condition. Impression: 1. Vomiting/diarrhea. 2. Third trimester . This note was generated with [employer] dictation software. It may contain incorrect words, spelling, and punctuation that were not noted in review of the chart prior to signing ED Disposition - Plan for ED Patient: Chief Complaint: Nausea/Vomiting/Diarrhea Instructions: ED Vomiting Diarrhea Nonspecific Ad Prescriptions: Ondansetron [Zofran Odt] 4 mg PO Q8H PRN PRN #10 tablet PRN Reason: Nausea Referrals: Doctor,Your [STAFF PHYSICIAN] - 1-2 Days if not improving
[2018-06-10] MEDS: 0.9% Normal Saline 1,000 ML 1000 ML IV ×2 (09:00→10:13)
[2018-06-10] MEDS: Ondansetron 4 MG/2 ML Vial IV (09:00)
[2018-06-10 09:13] VITALS: BP 100/66; PULSE 117; RESP 20; O2SAT 95
[2018-06-10 09:26] LABS: Absolute Lymphocyte Count 0.42 X10^3/ul (0.83-4.51); Absolute Neutrophil Count 11.5 X10^3/uL (2.0-7.7); Basophil# 0.01 X10^3/uL; Basophil% 0.1 % (0-1); Hematocrit 36.6 % (37-47); Hemoglobin 12.1 g/dl (12.0-15.0); Lymphocyte # 0.42 X10^3/ul (4.0); Lymphocyte % 3.3 % (19-41); Mean Corp Hgb Conc 33.1 g/gl (32-36); Mean Corpuscular Hgb 29.1 pg (27.0-32.0); Mean Platelet Vol. 9.5 fl (6.2-12.0); Monocyte# 0.73 X10^3/uL; Monocyte% 5.8 % (0-10); Neutrophil # 11.45 X10^3/uL (2.7-7.7); Neutrophil % 90.3 % (47-70); Platelet Count 166 K/mm3 (150-450); RBC Distribution Width SD 43.7 fl (35.1-43.9); Red Blood Count 4.16 M/mm3 (4.2-5.4); White Blood Count 12.7 K/mm3 (4.4-11.0)
[2018-06-10 09:28] LABS: Differential Indicated SCAN CRITERIA MET; POSITIVE COUNT NO; POSITIVE DIFFERENTIAL YES; POSITIVE MORPHOLOGY NO
[2018-06-10 09:36] LABS: Anion Gap 10 (5-15); BUN 9 mg/dL (7-18); BUN/Creat Ratio 15.8 RATIO (10-20); Chloride 104 mmol/L (98-107); Creatinine, Serum 0.57 mg/dL (0.55-1.02); EST Glomerular Filtration Rate 144 mL/min (>60); Est Glom Filt Rate - Afr Amer 174 mL/min (>60); Estimated Creatinine Clearance 131.32 ml/min; Glucose 116 mg/dL (74-106); Potassium 3.4 mmol/L (3.5-5.1); Sodium Level 137 mmol/L (136-145)
[2018-06-10 10:03] VITALS: BP 112/64; PULSE 107; RESP 22; O2SAT 97
[2018-06-10 11:18] VITALS: BP 111/60; PULSE 108; RESP 17
--- OUTSIDE RECORDS SUMMARY | 2018-07-27 07:28 | XMS RPT_ITS ---
:2000 Author Organization OHIP Care Team Providers Name Role Phone LALITADAKOTA LENTZ Attending Unavailable MERLIN OCASIO Referring Unavailable MERLIN OCASIO Primary Care Unavailable ADOLFO FAULKNER Referring Unavailable MERLIN OCASIO Primary Care Unavailable PETRA SERRANO Attending Unavailable PETRA SERRANO Referring Unavailable MERLIN OCASIO Primary Care Unavailable DAVID MOSQUEDA Attending Unavailable RUDI SALDAÑA Attending Unavailable SEALYoni, ADOLFO PETERSEN Referring Unavailable MERLIN OCASIO Primary Care Unavailable Tayo, Abraham Attending Unavailable JIMMY HENAO Primary Care Unavailable Erika, Karin Attending Unavailable Erika, Karin Referring Unavailable JIMMY HENAO Primary Care Unavailable Seals, Adolfo Attending Unavailable Seals, Adolfo Attending Unavailable Seals, Adolfo Attending Unavailable Benekos, Karin Attending Unavailable Benekos, Karin Referring Unavailable TayoAbraham Attending Unavailable Seals, Adolfo Attending Unavailable Seals, Adolfo Referring Unavailable Seals, Adolfo Attending Unavailable Seals, Adolfo Attending Unavailable PROBLEMS PROBLEMS DATE TYPE CONDITION / CODE ATTENDING STATUS SOURCE 07/09/2018 Unknown Z36.85 - Encounter SealAdolfo capps Active [facility] for Community screening for Hospital Streptococcus B / Repository Z36.85(ICD-10) 07/09/2018 Unknown Z11.3 - Encounter SealsAdolfo Active [place] for screening for Community infections with a Hospital predominantly Repository sexual mode of transmission / Z11.3(ICD-10) 07/09/2018 Unknown A56.00 - Chlamydial SealsAdolfo Active [facility] infection of lower Community genitourinary Hospital tract, unspecified Repository / A56.00(ICD-10) 05/05/2018 Unknown Z34.82 - Encounter SealsAdolfo Active [facility] for supervision of [facility] other normal Hospital , second Repository trimester / Z34.82(ICD-10) 12/27/2017 Unknown Z34.81 - Encounter Seals, Adolfo Active [facility] for supervision of [facility] other normal Hospital , first Repository trimester / Z34.81(ICD-10) PROCEDURES PROCEDURES No Procedure Records FoundRESULTS RESULTS CT/NG WCH BY PCR Collected: 07/09/2018 Status: F Source: [place] 1:45 PM [facility] [place] TYPE CODE TESTS RESULT OUT OF RANGE REFERENCE UNITS LAB L8200.2100 Negative Normal Chlam Negative Trac PCR LAB L8200.2200 Negative Normal NG by Negative PCR Performed By: #### L8200.2000 #### [facility] [address] [place], [address] Observed: 07/09/2018 Status: F Source: [place] CULTURE, GROUP B 1:45 PM [facility] [place] REPOSITORY Comments: VAGINAL/RECTAL HUSSEIN Culture Group B Beta Streptococcus is not isolated. Performed By: #### M100.1800 #### [facility] [address] [place], [address] URINALYSIS, COMPLETE Collected: 06/30/2018 Status: F Source: [place] 11:40 PM [facility] [place] Order Comment: Has pt arrived? Y How was Urine Obtained? CLEAN CATCH TYPE CODE TESTS RESULT OUT OF RANGE REFERENCE UNITS LAB L400.3000 Yellow COLOR Normal Yellow LAB L400.3050 Clear Normal CLARITY Sl. Cloudy LAB L400.3200 Normal mg/dl Normal GLUCOSE, UR Normal LAB L400.3300 Negative mg/dL Normal BILIRUBIN URINE Negative LAB L400.3400 Negative mg/dl Normal KETONE UR Negative LAB L400.3465 1.002-1.030 Normal SP.GR. DIPSTX 1.020 LAB L400.3550 5.0 - 8.0 pH UR Normal 6.0 LAB L400.3600 Negative mg/dl High PROT 30 DIPSTX LAB L400.3700 Normal mg/dl Normal UROBILI Normal LAB L400.3750 Negative Normal NITRITE UR Negative LAB L400.3780 Negative /ul High 10 OCCULT BLOOD-UR LAB L400.3800 Negative /ul High LEUK ESTERASE 500 LAB L400.4050 0-5 /hpf WBC Normal 5-10 SEEN LAB L400.4100 0-5 /hpf Normal RBC-UA 0-5 SEEN LAB L400.4150 5-10 /hpf SQUAM Normal EPI 10-25 SEEN LAB L400.4300 None Seen /hpf 2+ Normal BACTERIA LAB L400.4350 <or=2+ /hpf 0 Normal MUCUS, URINE SEEN Performed By: #### L400.0001 #### [facility] [address] [place], [address] EMERGENCY DEPARTMENT Observed: 06/12/2018 Status: F Source: [place] SUMMARY 1:05 AM [facility] [place] [facility] Medical Records Department [address] [place] [address] Emergency Department Summary 06/10/18 0844 MR#: [id number] Acct: [id number] Name: ROSIBEL ESPINOZA Rep #: [id number] : 2000 17 From: Abraham Cr MD PCP: OUT OF TOWN DOCTOR Status: DEP ER - ER Visit Summary Date of Service: 06/10/18 Chief Complaint: Vomiting and diarrhea History of Present Illness: The patient is a [address] Faulknre. She is a at approximately 33 weeks [...] trimester . This note was generated with [employer] dictation software. It may contain incorrect words, [...] your Primary Care Provider. Call [facility] ([phone]) or report to the closest Emergency Room. Call 911 if necessary. 06/12/18 0105 <Electronically signed by Abraham Cr MD> Date Abraham Cr MD Cosigner Signature (If Indicated): Date CC: OUT OF TOWN DOCTOR CBC W/DIFF, AUTOMATED Collected: 06/10/2018 Status: F Source: [place] 9:05 AM [facility] [place] TYPE CODE TESTS RESULT OUT OF [...] Lymph 0.42 Performed By: #### L100.0100 #### [facility] [address] [place], [place], [address] BASIC METABOLIC Collected: 06/10/2018 Status: F Source: [place] PROFILE ([facility]) 9:05 AM [facility] [place] TYPE CODE TESTS RESULT OUT OF [...] Normal 10 Performed By: #### L500.2500 #### [facility] [address] [facility] [place], [address] CT/NG WCH BY PCR Collected: 05/26/2018 Status: C Source: [place] 2:00 PM [facility] [place] TYPE CODE TESTS RESULT OUT OF REFERENCE UNITS RANGE LAB L8200.2100 Negative High Chlam POSITIVE Trac PCR Result Comment: SENT TO 05-26-18 AT 1902PM LAB L8200.2200 Negative Normal Negative NG by PCR Performed By: #### L8200.2000 #### [facility] [address] [facility] [place], [address] CBC-COMPLETE BLOOD CNT Collected: 05/05/2018 Status: F Source: [place] NO DIFF 11:15 AM [facility] [place] TYPE CODE TESTS RESULT OUT OF [...] MPV 9.8 Performed By: #### L100.0500 #### [facility] [address] [place], [address] GLUCOSE CHALLENGE GEST Collected: 05/05/2018 Status: F Source: [place] 1H 50G 11:15 AM [facility] [place] TYPE CODE TESTS RESULT OUT OF RANGE REFERENCE UNITS LAB L501.0250 70-140 mg/dL Normal GLU GEST 103 50g 1H Performed By: #### L501.0250 #### [facility] [address] 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 The total patient time of the visit was 15 minutes, of which greater than 50% of the time was spent counseling and coordinating care. PROGRESS NOTE Observed: 05/02/2018 Status: COMPLETED Source: [place] 9:00 AM [facility] CHIEF COMPLAINT: clubfoot evaluation. HISTORY OF PRESENT [...] report from her last visits with the in home nanny indicating an isolated clubfoot on the fetus [...] BY PCR Collected: 01/23/2018 Status: F Source: [place] 3:40 PM [facility] [place] TYPE CODE TESTS RESULT OUT OF RANGE REFERENCE UNITS LAB L8200.2100 Negative Normal Chlam Negative Trac PCR LAB L8200.2200 Negative Normal NG by Negative PCR Performed By: #### L8200.2000 #### [facility] [address] [facility] [place], [address] EMERGENCY DEPARTMENT Observed: 01/06/2018 Status: F Source: [place] SUMMARY 2:21 AM [facility] [place] [facility] Medical Records Department [address] [place] [address] Emergency Department Summary 01/05/18 2316 MR#: [id number] Acct: [id number] Name: ROSIBEL ESPINOZA Rep #: [id number] : 2000 17 From: Abraham Cr MD [...] abdominal trauma. This note was generated with YourPOV.TV dictation software. It may contain incorrect words, [...] problems, contact your Primary Care Provider. Call [employer] Registry ([phone]) or report to the closest Emergency Room. Call 911 if necessary. 01/06/18 0221 <Electronically signed by Abraham Cr MD> Date Abraham Kramer Signature (If Indicated): Date CC: Dwaine Ocasio DO URINE DRUG SCREEN Collected: 12/26/2017 Status: F Source: [place] (MICHAELTA) 3:27 PM [facility] [place] Order Comment: List of Drugs Taken [...] NEGATIVE Performed By: #### L505.5000, L505.6240 #### [facility] [address] [place], [address] NICOTINE URINE DRUG Collected: 12/26/2017 Status: F Source: [place] SCREEN 3:27 PM [facility] [place] Order Comment: List of Drugs Taken [...] Nicotine. Performed By: #### L505.5000, L505.6240 #### [facility] [place], [address] CBC W/DIFF, AUTOMATED Collected: 12/26/2017 Status: F Source: [place] 3:27 PM [facility] [place] TYPE CODE TESTS RESULT OUT OF [...] Lymph 1.77 Performed By: #### L100.0100 #### [facility] [address] [facility] [place], [place], [address] URINALYSIS, ROUTINE Collected: 12/26/2017 Status: F Source: [place] (DIPSTICK) 3:27 PM [facility] [place] Order Comment: How was Urine Obtained? [...] 25 ESTERASE Performed By: #### L400.2010 #### [facility] [address] [facility] [place], [place], [address] THYROID STIM HORMONE Collected: 12/26/2017 Status: F Source: [place] (TSH) 3:27 PM [facility] [place] TYPE CODE TESTS RESULT OUT OF RANGE REFERENCE UNITS LAB L501.9520 0.358-3.74 uIU/mL Low TSH 0.19 Performed By: #### L501.9520 #### [facility] [address] [facility] [place], [address] T AND S-NO Collected: 12/26/2017 Status: F Source: [place] CHARGE W/PNP 3:27 PM [facility] [place] Order Comment: Reason for Type AND Screen/Red Cells: Surgery? N TYPE CODE TESTS RESULT OUT OF RANGE REFERENCE UNITS LAB B10.0800 A Normal BLOOD POSITIVE TYPE GEL LAB B100.4050 Normal Ab SCREEN NEGATIVE GEL Performed By: #### B100.7550 #### [facility] [address] [place], [place], [address] RPR Collected: 12/26/2017 Status: F Source: [place] 3:27 PM [facility] [place] TYPE CODE TESTS RESULT OUT OF REFERENCE UNITS RANGE LAB L700.5100 NONREACTIVE Normal RPR NONREACTIVE Performed By: #### L700.5100 #### [facility] [address] [facility] [address] RUBELLA IGG Collected: 12/26/2017 Status: F Source: [place] 3:27 PM [facility] [place] TYPE CODE TESTS RESULT OUT OF RANGE REFERENCE UNITS LAB L509.4000 IU/mL Normal Rubella IgG 226.3 Result Comment: Antibody results Interpretation of Immune Status < 5 IU/ml Presumed Non-immune 5 - < 10 IU/ml Equivocal > or = 10 IU/ml Presumed Immune Performed By: #### L509.4000, L3890.6005 #### [facility] [address] [place], [address] HIV - WCH Collected: 12/26/2017 Status: F Source: [place] 3:27 PM [facility] [place] TYPE CODE TESTS RESULT OUT OF RANGE REFERENCE UNITS LAB L3890.6005 Nonreactive Normal HIV - WCH Non-Reactive Performed By: #### L509.4000, L3890.6005 #### [facility] [address] [facility] [address] [place], [address] HEPATITIS B SURFACE Collected: 12/26/2017 Status: F Source: [place] AG 3:27 PM [facility] [place] TYPE CODE TESTS RESULT OUT OF RANGE REFERENCE UNITS LAB L3100.0400 Negative Normal HB Negative SURF AG Result Comment: Performed at: - [facility] [id number] Turning Lathe Tender: Dominik Nicholson PhD, Phone: [phone] Performed By: #### L3100.0390, L3100.0625, L3400.0000 #### [facility] (refer to report for specific site) refer to report for address and phone number HEPATITIS C ANTIBODIES Collected: 12/26/2017 Status: F Source: [place] 3:27 PM [facility] [place] TYPE CODE TESTS RESULT OUT OF RANGE REFERENCE UNITS LAB L3100.0650 0.0-0.9 s/co ratio Normal HEP C AB <0.1 Result Comment: Negative: < 0.8 Indeterminate: 0.8 - 0.9 Positive: > 0.9 The CDC recommends that a positive HCV antibody result be followed up with a HCV Nucleic Acid Amplification test (248595). Performed By: #### L3100.0390, L3100.0625, L3400.0000 #### [facility] (refer to report for specific site) refer to report for address and phone number V-ZOSTER IGG Collected: 12/26/2017 Status: F Source: [place] (IMMUNITY) 3:27 PM [facility] [place] TYPE CODE TESTS RESULT OUT OF RANGE REFERENCE UNITS LAB L3400.0000 Immune >165 index Normal VZOST IgG [id number] Result Comment: Negative <135 Equivocal 135 - [...] BY PCR Collected: 12/13/2017 Status: F Source: [place] 11:35 AM [facility] TYPE CODE TESTS RESULT OUT OF RANGE REFERENCE UNITS LAB L8200.2100 Negative High Chlam POSITIVE Trac PCR LAB L8200.2200 Negative Normal NG by Negative PCR Performed By: #### L8200.2000 #### [facility] [address] [place], [place], [address] ALLERGIES ALLERGIES DATE TYPE / CODE NAME / CODE REACTION SEVERITY SOURCE 07/14/2018 Drug No Known Unknown [facility] Allergy/225164675(S Allergies/F[address] [facility] [place]OM[facility] [place]) 94207(RXNORM) Hospital Repository Miscellaneous NO KNOWN [place] Allergy/690006297(S ALLERGIES Children's NOMED CT) Hospital Repository ENCOUNTERS ENCOUNTERS ADMIT/DISCHARGE ACCOUNT ADMITTING ENCOUNTER LOCATION SOURCE NUMBER CLASS 07/15/2018/07/15/19 [id number] Ambulatory Building:[address] Repository 07/14/2018/07/14/19 [id number] Ambulatory [address] ing:WPOUTRoom Repository : WP011 07/09/2018 [id number] Ambulatory [facility] ing:LABSPEC Repository 06/30/2018/07/01/19 [id number] Ambulatory [address] ing:WPOUTRoom Repository : WP017 06/10/2018/06/10/20 [id number] Emergency [address] ing:ED Repository 06/03/2018/06/03/20 [id number] Ambulatory Building:[address] Repository 05/26/2018 [id number] Ambulatory [facility] Hospital ing:LABSPEC Repository 05/05/2018 [id number] [facility] ing:WOBLAB Repository 05/02/2018/05/02/20 [id number] Ambulatory Building:[address] Repository 05/02/2018/05/02/20 [id number] Ambulatory Building:[address] Repository 01/23/2018 [id number] Ambulatory [facility] Hospital ing:LABSPEC Repository 01/05/2018/01/06/20 [id number] Emergency [address] ing:ED Repository 12/26/2017 [id number] Ambulatory [facility] Hospital ing:WOBLAB Repository 12/13/2017 [id number] Ambulatory [facility] ing:LABSPEC Repository PAYERS PAYERS ENCOUNTER GUARANTOR PAYER SUBSCRIBER SOURCE 07/15/2018 ROSIBEL ANNE Primary [place] [facility] OMID [facility]'s TROLIODOB: [facility] TROLIODOB: Hospital [id number] [facility] [id number] Repository [facility], Number: [address] [place] [address]Nuy: [id number] [place], [place] Date: [phone] (HP) 07/14/2018 ROSIBEL Mj Primary Insurance:[facility] ROSIBEL Barker [place] [id number] [facility] [place] Number: [id number] [facility] [address]Roi: [phone] [id number] Repository [phone] (HP) Date:[id number] [address]ZL: 07/14/2018 Secondary NOT GIVENUNK [place] Insurance:SELF PAY [facility] Number: Effective Repository Date:2018-07-14 07/09/2018 ROSIBEL Mj Primary Insurance:[facility] ROSIBEL Barker [place] [id number] [facility] TROLIODOB: [place] Number: [id number] [facility] [address]Hgi: [phone] [id number] Repository [phone] (HP) Date:[id number] [address]TU: 07/09/2018 Secondary NOT GIVENUNK [place] Insurance:SELF PAY [facility] Number: Effective Repository Date:2018-07-09 06/30/2018 ROSIBEL Barker Primary IAIN N TROLIODOB: [place] [id number] SPINK Insurance:[id number] Number: Hospital [address]Uaw: 330 [id number] Repository [phone] (HP) Date:2134-30-06ES [facility] [address], [place] [address]MP: 06/30/2018 Secondary ROSIBEL M [place] Insurance:[facility] TROLIODOB: [facility] [id number] Hospital Number: Repository [id number] Date:1535-64-41GP [address] [address]PF: 06/30/2018 Tertiary NOT GIVENUNK [place] Insurance:SELF PAY [facility] Number: Effective Repository Date:2018-06-30 06/10/2018 ROSIBEL Mj Primary IAIN N TROLIODOB: [place] [id number] SPINK Insurance:[place]olic [id number] Number: Hospital [address]Knj: (104) [id number] Repository [phone] () Date:1685-10-76CA[address] [address]OC: 06/10/2018 Secondary ROSIBEL M [place] Insurance:[facility] TROLIODOB: [facility] [id number] Hospital Number: Repository [id number] Date:[id number] [address]CF: 06/10/2018 Tertiary NOT GIVENUNK [place] Insurance:SELF PAY [facility] Number: Effective Repository Date:2018-06-10 06/03/2018 ROSIBELRIC NANE Primary Insurance:[facility] OMID [place] [facility] TROLIODOB: [facility] TROLIODOB: Hospital [facility] [id number] Repository [facility], Number: [address] [place] [address]Piv: [id number] [place], [place] Date: [phone] () 05/26/2018 ROSIBEL M Primary Insurance:[facility] ROSIBEL M [place] [id number] [facility] TROLIODOB: [place] Number: [id number] Hospital [address]Eys: [phone] [id number] Repository [phone] (HP) Date:1317-29-69JF[address] [address]CR: 05/26/2018 Secondary NOT GIVENUNK [place] Insurance:SELF PAY [facility] Number: Effective Repository Date:2018-05-26 05/05/2018 ROSIBEL Barker Primary Insurance:[facility] ROSIBEL Mj Hannah [id number] [facility] TROLIODOB: [place] Number: [id number] Hospital [address]Tpv: [phone] [id number] Repository [phone] (HP) Date:4262-08-75AM [address] [place] [address]BR: 05/05/2018 Secondary NOT GIVENUNK [place] Insurance:SELF PAY [facility] Number: Effective Repository Date:2018-05-05 05/02/2018 PETRA Moss [place] ROSIBEL ANNE [facility]'s TROLIODOB: [facility] TROLIODOB: Hospital [facility] [id number] Repository [facility], Number: [facility] [address]Bli: [id number] [place], [place] Date: [phone] (HP) 05/02/2018 PETRA Moss Primary [place] ROSIBELRIC ANNE [facility]'s TROLIODOB: [facility] TROLIODOB: Hospital [facility] [id number] Repository [facility], Number: [address] [place] [address]Ezu: [id number] [place] Date: [phone] (HP) 01/23/2018 ROSIBEL Barker Primary IAIN N TROLIOUNK [place] [id number] Insurance:[facility] y Number: [place], [place] [id number] Repository [address]Ius: (330) Date:0555-61-20ZF [phone] (HP) [id number] [place] [address]QP: 01/23/2018 Secondary NOT GIVENUNK [place] Insurance:SELF PAY [facility] Number: Effective Repository Date:2018-01-23 01/05/2018 ROSIBEL Barker Primary IAIN [place] [id number] Insurance:ANTHEMPolic Community [place] Number: [place], [place] [id number] Repository [address]Jsg: 330) Date:6998-66-67ML [phone] () [id number] COTO [phone]: 01/05/2018 Secondary NOT GIVENUNK [place] Insurance:SELF PAY [facility] Number: Effective Repository Date:2018-01-05 12/26/2017 BOB Primary IAIN [place] [id number] Insurance:ANTHEMPolic Community [place] y Number: [facility] [id number] Repository [place] [address]Yyy: Date:0045-19-91AS [address]KFIPRTBKEITH COTO () [address]FD: 12/26/2017 Secondary NOT GIVENUNK [place] Insurance:SELF PAY [facility] Number: Effective Repository Date:2017-12-26 12/13/2017 BOB Primary IAIN Young [id number] Insurance:ANTHEMPolic Community [place] y Number: [facility] [id number] Repository [place] [address]Cee: Date:3337-08-13BR [address]SUMWXRZKEITH COTO () [address]MQ: 12/13/2017 Secondary NOT GIVENUNK [place] Insurance:SELF PAY [facility] Number: Effective Repository Date:2017-12-13
== END 2018-06-10 11:22 | disposition home or self-care (01) ==
PROVIDERS: Emergency Provider Emergency Medicine
DX: O99.89 Other specified diseases and conditions complicating pregnancy, childbirth and the puerperium (principal); R19.7 Diarrhea, unspecified; R11.2 Nausea with vomiting, unspecified; R10.30 Lower abdominal pain, unspecified; R05 Cough; R68.83 Chills (without fever); Z3A.33 33 weeks gestation of pregnancy
CPT/HCPCS: 80048; 85025; 96361; 96374; 99284; J7030; J2405

== ENCOUNTER 2018-06-30 23:40 | Outpatient (CLI) | payer MEDICAID, SELFPAY ==
[2018-07-01 00:10] VITALS: BMI 27.8
[2018-07-01 00:28] LABS: Color, Urine Yellow (Yellow); Glucose, Dipstick Normal (Normal); Ketone-Dipstick Negative (Negative); Leukocyte Esterase-Dipstick 500 /ul (Negative); Mucous, Urine 0 SEEN /hpf (<or=2+); Nitrite-Dipstick Negative (Negative); Occult Blood-Urine 10 /ul (Negative); Protein-Dipstick 30 mg/dl (Negative); Urine Bilirubin Dipstick Negative (Negative); Urine Clarity Sl. Cloudy (Clear); Urine Urobilinogen Normal (Normal)
[2018-07-01 01:08] LABS: Bacteria 2+ /hpf (None Seen); Red Blood Cells-Urine 0-5 SEEN /hpf (0-5); Squamous Epithelial Cells - UA 10-25 SEEN /hpf (5-10); White Blood Cells 5-10 SEEN /hpf (0-5)
[2018-07-01 02:00] VITALS: RESP 18
--- NOTE | 2018-07-03 08:05 | OB.TRI.NOTE ---
History of Present Illness Date of Service: 06/30/18 Reason For Visit: R/O LABOR Date of Service: 06/30/18 Final MARC: 07/31/18 Gestational age: 35 Weeks and 5 Days History of Present Illness: 18 yo female at 35 5/7 wk EGA presents for evluation due to abdominal pain and diarrhea. Tolerating po well and didn't c/o nausea or vomiting. Allergies No Known Allergies Allergy (Verified 07/01/18 00:11) Laboratory Studies: Laboratory Tests 06/30/18 Range/Units 23:40 Urine Color Yellow (Yellow) Urine Clarity Sl. Cloudy (Clear) Urine pH 6.0 (5.0 - 8.0) Ur Specific [place] 1.020 (1.002-1.030) Urine Protein 30 H (Negative) mg/dl Urine Glucose (UA) Normal (Normal) mg/dl Urine Ketones Negative (Negative) mg/dl Urine Occult Blood 10 H (Negative) /ul Urine Nitrite Negative (Negative) Urine Bilirubin Negative (Negative) mg/dL Urine Urobilinogen Normal (Normal) mg/dl Ur Leukocyte Esterase 500 H (Negative) /ul Urine RBC 0-5 SEEN (0-5) /hpf Urine WBC 5-10 SEEN (0-5) /hpf Ur Squamous Epith Cells 10-25 SEEN (5-10) /hpf Urine Bacteria 2+ (None Seen) /hpf Urine Mucus 0 SEEN (<or=2+) /hpf Review of Systems Gastrointestinal: Reports: Abdominal Pain, Diarrhea Physical Exam Vitals: Vital Signs Resp 18 07/01/18 02:00 Cervix Dilation (cm): 0 Station: -3 Effacement (%): 0 NST - FHR Rate Baby A Baseline: 110-120s with accels to 140-150 Variability:: Moderate Accelerations:: 15 x 15 Decelerations:: Variable - two noted on strip. each less than 10 sec. to 70-90 bpm with rapid return to baseline. Uterine Activity:: UCs q 1 1/2-3 mins Impression/Plan 35 5/7 wk EGA Abdominal pain and diarrhea False labor Home RTO for appt as scheduled. Return to hospital if inc s/sx of labor.
== END 2018-07-01 02:00 | disposition home or self-care (01) ==
LOC: WPOUT 23:52 → WP 23:54
PROVIDERS: Referring Provider Obstetrics & Gynecology; Visit Provider Obstetrics & Gynecology
DX: O47.03 False labor before 37 completed weeks of gestation, third trimester (principal); O26.893 Other specified pregnancy related conditions, third trimester; R10.9 Unspecified abdominal pain; R19.7 Diarrhea, unspecified; O76 Abnormality in fetal heart rate and rhythm complicating labor and delivery; Z3A.35 35 weeks gestation of pregnancy
CPT/HCPCS: 59025; 59050; 81001; 99218; G0378

== ENCOUNTER → 2018-07-09 14:20 | Outpatient (CLI) | payer MEDICAID, SELFPAY ==
[2018-07-01 00:10] VITALS: BMI 27.8
[2018-07-09 19:51] LABS: Chlamydia Trachomatis by PCR Negative (Negative); Neisserai gonorrhoeae by PCR Negative (Negative); Probe Check PASS; Sample Adequacy Control PASS; Specimen Processing Control PASS
== END ==
PROVIDERS: Visit Provider Obstetrics & Gynecology
DX: Z36.85 Encounter for antenatal screening for Streptococcus B (principal); Z11.3 Encounter for screening for infections with a predominantly sexual mode of transmission; A56.00 Chlamydial infection of lower genitourinary tract, unspecified
CPT/HCPCS: 87081; 87491; 87591

== ENCOUNTER 2018-07-14 16:35 | Outpatient (CLI) | payer MEDICAID, SELFPAY ==
[2018-07-14 18:01] VITALS: BMI 28.0
--- NOTE | 2018-07-15 07:09 | OB.TRI.NOTE ---
History of Present Illness Was patient seen by the physician?: No Reason For Visit: R/O LABOR Date of Service: 07/14/18 Final MARC: 07/31/18 Gestational age: 37 Weeks and 4 Days History of Present Illness: 17 yo female at 37 4/7 wk presents for labor check. Fetus with known bilateral clubbed feet. Allergies No Known Allergies Allergy (Verified 07/14/18 18:05) Physical Exam Cervix Dilation (cm): 3 - thick, posterior NO CHANGE with observation Station: -3 NST - FHR Rate Baby A Baseline: 130-140s with accels to 160s Variability:: Moderate Accelerations:: 15 x 15 Decelerations:: None NST Reactive:: Yes, Appropriate for gestational age FHR Category:: Category I Uterine Activity:: irreg UCs Impression/Plan 17 yo at 37 4/7 wk FALSE LABOR Home. RTO as planned for next PNV return to hospital if inc s/sx of labor.
== END 2018-07-14 18:15 | disposition home or self-care (01) ==
LOC: WPOUT 16:45 → WP 16:45
PROVIDERS: Referring Provider Obstetrics & Gynecology; Visit Provider Obstetrics & Gynecology
DX: O47.1 False labor at or after 37 completed weeks of gestation (principal); Z3A.37 37 weeks gestation of pregnancy
CPT/HCPCS: 59025; 59050; 99218; G0378

== ENCOUNTER → 2018-07-23 15:33 | Outpatient (CLI) | payer MEDICAID, SELFPAY ==
[2018-07-14 18:01] VITALS: BMI 28.0
[2018-07-23 16:07] LABS: ROM Internal Control Test YES-OK TO RESULT pt. (Internal QC); ROM Patient Test POSITIVE (Negative)
--- OUTSIDE RECORDS SUMMARY | 2018-09-24 18:08 | XMS RPT_ITS ---
:2000 Author Organization [place] Support Name Relationship Address Phone [facility] Unavailable [address] + [place] [address] TROLIO, PETRA Unavailable Unavailable + [facility] Unavailable [address] + [place] [address] TROLIO, PETRA Unavailable Unavailable + TROLIO, PETRA Unavailable [address] + [place] [address] [facility] Unavailable [address] + [place] [address] TROLIO, PETRA Unavailable Unavailable + [facility] Unavailable [address] + [place] [address] TROLIO, PETRA Unavailable Unavailable + [place] Unavailable [address] + [place] [address] TROLIO, PETRA Unavailable Unavailable + [facility] Unavailable [address] + [place] [address] TROLIO, PETRA Unavailable Unavailable + TROLIO, PETRA Unavailable [address] + [place] [address] UE Unavailable Unavailable Unavailable UE Unavailable Unavailable Unavailable TROLIO, PETRA Unavailable [address] + [place] [address] TROLIO, PETRA Unavailable [address] + [place] [address] UE Unavailable Unavailable Unavailable UE Unavailable Unavailable Unavailable Care Team Providers Name Role Phone DAKOTA CELIS Attending Unavailable BLACK, MERLIN Cameron Referring Unavailable BLACK, MERLIN L Primary Care Unavailable SEALS, ADOLFO PETERSEN Referring Unavailable BLACK, MERLIN L Primary Care Unavailable ZACH, PETRA Vanessa Attending Unavailable ZACH, PETRA Vanessa Referring Unavailable BLACK, MERLIN L Primary Care Unavailable DAVID MOSQUEDA Attending Unavailable RUDI SALDAÑA Attending Unavailable SEALS, ADOLFO PETERSEN Referring Unavailable BLACK, MERLIN L Primary Care Unavailable Tayo, Abraham Attending Unavailable , JIMMY Primary Care Unavailable Benekos, Karin Attending Unavailable Benekogénesis, Karin Referring Unavailable , JIMMY Primary Care Unavailable Seals, Adolfo Attending Unavailable Benekos, Karin Attending Unavailable Benekos, Karin Referring Unavailable Seals, Adolfo Attending Unavailable Seals, Adolfo Admitting Unavailable Seals, Adolfo Attending Unavailable Seals, Adolfo Referring Unavailable Primay Care Physicia, No Primary Care Unavailable Seals, Adolfo Attending Unavailable Seals, Adolfo Attending Unavailable Tayo, Abraham Attending Unavailable Seals, Adolfo Attending Unavailable Seals, Adolfo Referring Unavailable Seals, Adolfo Attending Unavailable Seals, Adolfo Attending Unavailable PROBLEMS PROBLEMS DATE TYPE CONDITION / CODE ATTENDING STATUS SOURCE 07/23/2018 Unknown Z34.83 - Encounter Adolfo Faulkner Active [place] for supervision of Community other normal Hospital , third Repository trimester / Z34.83(ICD-10) 07/09/2018 Unknown Z36.85 - Encounter Adolfo Faulkner Active [place] for Community screening for Hospital Streptococcus B / Repository Z36.85(ICD-10) 07/09/2018 Unknown Z11.3 - Encounter SealAdolfo capps Active [place] for screening for Community infections with a Hospital predominantly Repository sexual mode of transmission / Z11.3(ICD-10) 07/09/2018 Unknown A56.00 - Chlamydial SealAdolfo capps Active [place] infection of lower Community genitourinary Hospital tract, unspecified Repository / A56.00(ICD-10) 05/05/2018 Unknown Z34.82 - Encounter Adolfo Faulkner Active [place] for supervision of Community other normal Hospital , second Repository trimester / Z34.82(ICD-10) 12/27/2017 Unknown Z34.81 - Encounter SealAdolfo capps Active [place] for supervision of Community other normal Hospital , first Repository trimester / Z34.81(ICD-10) PROCEDURES PROCEDURES No Procedure Records FoundRESULTS RESULTS DISCHARGE SUMMARY Observed: 07/26/2018 Status: F Source: [place] 10:02 AM [facility] REPOSITORY [facility] Medical Records Department [address] [place] [address] Discharge Summary 07/26/18 0959 MR#: [id number] Acct: [id number] Name: ROSIBEL ESPINOZA Rep #: [id number] : 2000 18 From: Karin James MD PCP: Care Physician, No Primary Status: ADM IN Y Location: [place] [address]1 Discharge Date and Diagnosis Date of Admission: 07/23/18 - 39 wk prolonged SPROM Date of Discharge: 07/26/18 - induction to vaginal delivery Hospital Course and Treatment Operations: - - induction of labor Summary of Care Provided: The patient is a 18 year old female sent from [facility] at 39 wk EGA with possible SPROM x two days. Admitted for induction. Went on to deliver a kamara viable male. (bilateral clubbed feet noted) Baby with 8/9 Apgars. Postdelivery course uneventful and sent no PPD#2 after vaginal delivery - Physical Exam Vital Signs Temp Pulse Resp BP Pulse Ox 98.5 F 67 16 108/61 96 07/26/18 07:43 07/26/18 07:43 07/26/18 07:43 07/26/18 07:43 07/26/18 07:43 Oxygen Delivery Method Room Air Weight: 74.843 kg Body Mass Index (BMI) 29.2 Intake and Output for Last 24 Hours Intake Total 4401 / 4401 Output Total 500 / 500 Balance 3901 / 3901 Discharge Diet: No Restrictions Discharge Activity: Return to Normal Activity, No Restrictions, May Drive, May Shower Return to work on:: 09/22/18 May shower in (days): 0 May resume sexual activity in: 4-6 weeks Call your doctor if your incision/area has: Sudden Increased Bleeding, Increased Pain/ Swelling, Foul Smelling Discharge Call your doctor if you observe: Fever of 101 or Higher, Inability to urinate, Inability to have a bowel movement, Using more than one pad per hour, Shortness of breath, Chest pain, Calf discomfort, Uncontrolled pain Cleanse incision/area with: Soap AND Water Home Medications: Medications to take at Discharge Calcium Carbonate [Calcium] 500 mg PO DAILY 06/10/18 Ferrous Sulfate 325 mg PO BID 06/10/18 Ibuprofen 600 mg PO 4X/DAY #30 tab 07/24/18 Following Prescrptions Were Given to Patient: Ibuprofen 600 mg PO 4X/DAY #30 tab Primary Care Physician: Care Physician,No Primary [Primary Care Provider] - Please Follow Up With: Adolfo Faulkner MD Medical Necessity - Tobacco Use Smoking Status: Former smoker Meaningful Use Info Meaningful Use Diagnoses (Choose all that apply): None applicable 07/26/18 1002 <Electronically signed by Karin James MD> Date Karin James MD Cosigner Signature (if applicable): Date CC: No Primary Care Physician; Karin James MD Signed CBC-COMPLETE BLOOD CNT Collected: 07/25/2018 Status: F Source: [place] NO DIFF 6:24 AM [facility] REPOSITORY Order Comment: Reason for Laboratory Test Day #1 TYPE CODE TESTS RESULT OUT OF RANGE REFERENCE UNITS LAB L100.1000 4.4-11.0 K/mm3 High WBC 16.6 LAB L100.1200 4.2-5.4 M/mm3 Low RBC 4.03 LAB L100.1300 12.0-15.0 g/dl Low HGB 11.9 LAB L100.1400 37-47 % Low HCT 35.6 LAB L100.1500 81-99 fL Normal MCV 88.3 LAB L100.1600 27.0-32.0 pg Normal MCH 29.5 LAB L100.1700 32-36 g/gl Normal MCHC 33.4 LAB L100.1810 11.6-14.6 % Normal RDW CV 13.6 LAB L100.1820 35.1-43.9 fl Normal RDW SD 42.5 LAB L100.1900 150-450 K/mm3 Low PLT 148 LAB L100.2000 6.2-12.0 fl Normal MPV 9.2 Performed By: #### L100.0500 #### [facility] [address] [place], [address] OPERATIVE REPORT Observed: 07/24/2018 Status: F Source: [place] 11:22 AM [facility] REPOSITORY [facility] Medical Records Department [address] [place] [address] Operative Report 07/24/18 1111 MR#: [id number] Acct: [id number] Name: ROSIBEL ESPINOZA Rep #: [id number] : 2000 18 From: Adolfo Faulkner MD PCP: Care Physician, No Primary Status: ADM IN Location: [place] [address]1 Vaginal Delivery Maternal Presentation: Spontaneous Rupture of Membranes 39 weeks with SROM Method of Induction: Pitocin Amniotic Membrane Rupture Type: Spontaneous at home Rupture of Membrane time: unsure Amniotic Fluid Description: Clear Final MARC: 07/31/18 Final MARC Source: US <20 weeks Gestational age: 39 Weeks and 0 Days Date of Procedure: 07/24/18 Pre-Operative Diagnosis: same Post-Operative Diagnosis: same Surgery/ Procedure Performed: Spontaneous Vaginal Delivery Anesthesiologist: Jack Cleveland Type of Anesthesia: Epidural Description of Procedure: Presented to the office yesterday with report of possible SROM 2 days ago. Was sent to [facility] for induction of labor. Pitocin induction was started and was used intermittently due to heart rate tracing. Progressed to then pushed for 2 1/2 hours to deliver a live male without complication. Pediatrics was rpesent at delivery due to maternal fever and diagnosis of bilateral club feet. Baby had active cry at delivery. Delayed cord clamping was employed. The placenta delivered spntaneously intact with a centrally located 3VC. The uterus contracted well. The vagina, cervix and perineum were intact. Presentation: Vertex Placental Delivery Description: Spontaneous Placenta Disposition: Sent to Pathology Percentage of Placenta Abruption: 0 Cord Vessel Description: 3 Vessels Nuchal Cord Compression: Without compression Cord Entanglement: None Drain: Granados to straight drain Estimated Blood Loss: 200cc (1 minute): 8 (5 minute): 9 Episiotomy Description: None Laceration: None Medications given after delivery: IV Pitocin Complications: None 07/24/18 1122 <Electronically signed by Adolfo Faulkner MD> Date Adolfo Faulkner MD CC: No Primary Care Physician; Adolfo Faulkner MD Signed DISCHARGE INSTRUCTION Observed: 07/24/2018 Status: F Source: [place] 11:22 AM [facility] REPOSITORY [facility] Medical Records Department [address] [place] [address] Instructions for Home/Discharge Instructions 07/24/18 1121 MR#: [id number] Acct: [id number] Name: ROSIBEL ESPINOZA Rep #: [id number] : 2000 18 From: Adolfo Faulkner MD PCP: Care Physician, No Primary Status: ADM IN Discharge Diet: No Restrictions Discharge Activity: Return to Normal Activity, No Restrictions, May Drive, May Shower Return to work on:: 09/22/18 May shower in (days): 0 May resume sexual activity in: 4-6 weeks Call your doctor if your incision/area has: Sudden Increased Bleeding, Increased Pain/ Swelling, Foul Smelling Discharge Call your doctor if you observe: Fever of 101 or Higher, Inability to urinate, Inability to have a bowel movement, Using more than one pad per hour, Shortness of breath, Chest pain, Calf discomfort, Uncontrolled pain Cleanse incision/area with: Soap AND Water Additional Instructions: If you experience any of the following, contact your healthcare provider. * Bleeding that soaks a pad every hour for 2 hours * Fever 100.4 or higher * Unrelieved incision or abdominal pain * Swelling, redness, discharge or bleeding from your incision or episiotomy site * Your incision begins to separate * Problems urinating (including inability to urinate or burning while urinating). * Visual changes * Severe headache * Flu-like symptoms * Pain or redness in one of both of your breasts * Pain, warmth, tenderness or swelling in your legs, especially the calf area * Frequent nausea and vomiting * Symptoms of depression or anxiety If you experience any of the following, call 911 or go to the nearest Emergency Room. * Chest pain * Problems breathing * Seizure activity * Partial or complete paralysis of a body part, slurred speech, weakness or drooping of the face, or a sudden inability to walk or hold your balance Allergies/Adverse Reactions: Allergies No Known Allergies Allergy (Verified 07/23/18 17:21) Medications to take at Discharge Calcium Carbonate [Calcium] 500 mg PO DAILY 06/10/18 Ferrous Sulfate 325 mg PO BID 06/10/18 Ibuprofen 600 mg PO 4X/DAY #30 tab 07/24/18 The following prescriptions were given: Ibuprofen 600 mg PO 4X/DAY #30 tab Please Follow Up With: Adolfo Faulkner MD When: 6 weeks Primary Care Physician: Care Physician,No Primary [Primary Care Provider] - Test Results: Test results from this visit will be discussed in further detail at your follow-up appointment, if applicable. Proposed Discharge Date: 07/26/18 07/24/18 1122 <Electronically signed by Adolfo Faulkner MD> Date Adolfo Faulkner MD CC: No Primary Care Physician Signed PLACENTA Observed: 07/24/2018 Status: P Source: [place] 12:00 AM [facility] REPOSITORY Patient: ROSIBEL ESPINOZA : 2000 (/) Acct Num: [id number] Phys: Adolfo Faulkner MD Unit Num: [id number] Loc: WP WM452-9 Specimen: [id number] Received: 07/24/18 - 1503 Spec Type: PLACENTA <Findings Not Available> Performed By: #### PPLAC #### [facility] [address] [place], [place], [id number] CBC-COMPLETE BLOOD CNT Collected: 07/23/2018 Status: F Source: [place] NO DIFF 5:05 PM [facility] REPOSITORY TYPE CODE TESTS RESULT OUT OF RANGE REFERENCE UNITS LAB L100.1000 4.4-11.0 K/mm3 High WBC 12.0 LAB L100.1200 4.2-5.4 M/mm3 Normal RBC 4.59 LAB L100.1300 12.0-15.0 g/dl Normal HGB 13.3 LAB L100.1400 37-47 % Normal HCT 40.6 LAB L100.1500 81-99 fL Normal MCV 88.5 LAB L100.1600 27.0-32.0 pg Normal MCH 29.0 LAB L100.1700 32-36 g/gl Normal MCHC 32.8 LAB L100.1810 11.6-14.6 % Normal RDW CV 13.8 LAB L100.1820 35.1-43.9 fl High RDW SD 44.4 LAB L100.1900 150-450 K/mm3 Normal PLT 178 LAB L100.2000 6.2-12.0 fl Normal MPV 9.6 Performed By: #### L100.0500 #### [facility] [address] [facility] [place], [address] TYPE AND SCREEN Collected: 07/23/2018 Status: F Source: [place] 5:05 PM [facility] REPOSITORY Order Comment: Reason for Type AND Screen/Red Cells: ROUTINE TYPE CODE TESTS RESULT OUT OF RANGE REFERENCE UNITS LAB B10.0800 A Normal BLOOD TYPE GEL POSITIVE LAB B100.4000 Normal Antibody NEGATIVE Screen Performed By: #### B101.7450 #### [facility] [address] [facility] [place], [address] (ROM) RUPTURE OF Collected: 07/23/2018 Status: F Source: [place] [facility]BRANES 3:25 PM [facility] REPOSITORY Order Comment: CONTACT DR. ADOLFO FAULKNER WITH RESULTS. [phone] SPEAK WITH A NURSE. TYPE CODE TESTS RESULT OUT OF REFERENCE UNITS RANGE LAB L205.1310 Negative High ROM POSITIVE Result Comment: Amniotic fluid present indicates rupture of Membranes. Performed By: #### L205.1000 #### [facility] [address] [place], [address] CT/NG WCH BY PCR Collected: 07/09/2018 Status: F Source: [place] 1:45 PM [facility] REPOSITORY TYPE CODE TESTS RESULT OUT OF RANGE REFERENCE UNITS LAB L8200.2100 Negative Normal Chlam Negative Trac PCR LAB L8200.2200 Negative Normal NG by Negative PCR Performed By: #### L8200.2000 #### [facility] [address] [place], [place], [address] Observed: 07/09/2018 Status: F Source: [place] CULTURE, GROUP B 1:45 PM [facility] STREPTOCOCCUS REPOSITORY Comments: VAGINAL/RECTAL HUSSEIN Culture Group B Beta Streptococcus is not isolated. Performed By: #### M100.1800 #### [facility] [address] [place], [place], [address] URINALYSIS, COMPLETE Collected: 06/30/2018 Status: F Source: [place] 11:40 PM [facility] REPOSITORY Order Comment: Has pt arrived? Y [...] URINE SEEN Performed By: #### L400.0001 #### [facility] [address] [place], [address] EMERGENCY DEPARTMENT Observed: 06/12/2018 Status: F Source: [place] SUMMARY 1:05 AM [facility] REPOSITORY [facility] Medical Records Department [address] [place] [address] Emergency Department Summary 06/10/18 0844 MR#: [id number] Acct: [id number] Name: ROSIBEL ESPINOZA Rep #: [id number] : 2000 17 From: Abraham Cr MD [...] trimester . This note was generated with [employer] software. It may contain incorrect words, spelling, [...] your Primary Care Provider. Call [facility] ([phone]) or report to the closest Emergency Room. Call 911 if necessary. 06/12/18 0105 <Electronically signed by Abraham Cr MD> Date Abraham Cr MD Cosigner Signature (If Indicated): Date CC: OUT OF TOWN DOCTOR CBC W/DIFF, AUTOMATED Collected: 06/10/2018 Status: F Source: [place] 9:05 AM [facility] REPOSITORY TYPE CODE TESTS RESULT OUT OF [...] Lymph 0.42 Performed By: #### L100.0100 #### [facility] [address] [place], [address] BASIC METABOLIC Collected: 06/10/2018 Status: F Source: [place] PROFILE ([facility]) 9:05 AM [facility] REPOSITORY TYPE CODE TESTS RESULT OUT OF [...] Normal 10 Performed By: #### L500.2500 #### [facility] [address] [facility] [place], [address] CT/NG H BY PCR Collected: 05/26/2018 Status: C Source: [place] 2:00 PM [facility] REPOSITORY TYPE CODE TESTS RESULT OUT OF REFERENCE UNITS RANGE LAB L8200.2100 Negative High Chlam POSITIVE Trac PCR Result Comment: SENT TO 05-26-18 AT 1902PM LAB L8200.2200 Negative Normal Negative NG by PCR Performed By: #### L8200.2000 #### [facility] [address] [facility] [place], [address] CBC-COMPLETE BLOOD CNT Collected: 05/05/2018 Status: F Source: [place] NO DIFF 11:15 AM [facility] REPOSITORY TYPE CODE TESTS RESULT OUT OF [...] MPV 9.8 Performed By: #### L100.0500 #### [facility] [address] [place], [address] GLUCOSE CHALLENGE GEST Collected: 05/05/2018 Status: F Source: [place] 1H 50G 11:15 AM [facility] TYPE CODE TESTS RESULT OUT OF RANGE REFERENCE UNITS LAB L501.0250 70-140 mg/dL Normal GLU GEST 103 50g 1H Performed By: #### L501.0250 #### [facility] [address] [facility] [place], [address] PROGRESS NOTE Observed: 05/02/2018 Status: COMPLETED Source: [place] 10:00 AM [facility] Patient was seen by [facility] for bilateral club feet. The total patient time of the visit was 15 minutes, of which greater than 50% of the time was spent counseling and coordinating care. PROGRESS NOTE Observed: 05/02/2018 Status: COMPLETED Source: [place] 9:00 AM [facility] CHIEF COMPLAINT: clubfoot evaluation. HISTORY OF PRESENT [...] report from her last visits with the parts lister indicating an isolated clubfoot on the fetus [...] BY PCR Collected: 01/23/2018 Status: F Source: [place] 3:40 PM [facility] REPOSITORY TYPE CODE TESTS RESULT OUT OF RANGE REFERENCE UNITS LAB L8200.2100 Negative Normal Chlam Negative Trac PCR LAB L8200.2200 Negative Normal NG by Negative PCR Performed By: #### L8200.1999 #### [facility] [address] [facility] [place], [address] EMERGENCY DEPARTMENT Observed: 01/06/2018 Status: F Source: [place] SUMMARY 2:21 AM [facility] REPOSITORY [facility] Medical Records Department [address] [place] [address] Emergency Department Summary 01/05/18 2316 MR#: [id number] Acct: [id number] Name: ROSIBEL ESPINOZA Rep #: [id number] : 2000 17 From: Abraham Cr MD [...] abdominal trauma. This note was generated with [employer] dictation software. It may contain incorrect words, [...] problems, contact your Primary Care Provider. Call [facility] ([phone]) or report to the closest Emergency Room. Call 911 if necessary. 01/06/18 0221 <Electronically signed by Abraham Cr MD> Date Abraham Cr MD Cosigner Signature (If Indicated): Date CC: Dwaine Amarjit DO URINE DRUG SCREEN Collected: 12/26/2017 Status: F Source: [place] (LOCO) 3:27 PM [facility] REPOSITORY Order Comment: List of Drugs Taken [...] THC Normal NEGATIVE Performed By: #### L505.5000, L505.6280 #### [facility] [address] [place], [address] NICOTINE URINE DRUG Collected: 12/26/2017 Status: F Source: [place] SCREEN 3:27 PM [facility] REPOSITORY Order Comment: List of Drugs Taken [...] Nicotine. Performed By: #### L505.5000, L505.6240 #### [facility] [place], [address] CBC W/DIFF, AUTOMATED Collected: 12/26/2017 Status: F Source: [place] 3:27 PM [facility] REPOSITORY TYPE CODE TESTS RESULT OUT OF [...] Lymph 1.77 Performed By: #### L100.0100 #### [facility] [address] [place], [place], [address] URINALYSIS, ROUTINE Collected: 12/26/2017 Status: F Source: [place] (DIPSTICK) 3:27 PM [facility] REPOSITORY Order Comment: How was Urine Obtained? [...] 25 ESTERASE Performed By: #### L400.2010 #### [facility] [address] [facility] [address] [place], [place], [address] THYROID STIM HORMONE Collected: 12/26/2017 Status: F Source: [place] (TSH) 3:27 PM [facility] REPOSITORY TYPE CODE TESTS RESULT OUT OF RANGE REFERENCE UNITS LAB L501.9520 0.358-3.74 uIU/mL Low TSH 0.19 Performed By: #### L501.9520 #### [facility] [address] [place], [place], [address] T AND S-NO Collected: 12/26/2017 Status: F Source: [place] CHARGE W/PNP 3:27 PM [facility] REPOSITORY Order Comment: Reason for Type AND Screen/Red Cells: Surgery? N TYPE CODE TESTS RESULT OUT OF RANGE REFERENCE UNITS LAB B10.0800 A Normal BLOOD POSITIVE TYPE GEL LAB B100.4050 Normal Ab SCREEN NEGATIVE GEL Performed By: #### B100.7550 #### [facility] [address] [place], [place], [id number] RPR Collected: 12/26/2017 Status: F Source: [place] 3:27 PM [facility] REPOSITORY TYPE CODE TESTS RESULT OUT OF REFERENCE UNITS RANGE LAB L700.5100 NONREACTIVE Normal RPR NONREACTIVE Performed By: #### L700.5100 #### [facility] [address] [place], [place], [address] RUBELLA IGG Collected: 12/26/2017 Status: F Source: [place] 3:27 PM [facility] REPOSITORY TYPE CODE TESTS RESULT OUT OF RANGE REFERENCE UNITS LAB L509.4000 IU/mL Normal Rubella IgG 226.3 Result Comment: Antibody results Interpretation of Immune Status < 5 IU/ml Presumed Non-immune 5 - < 10 IU/ml Equivocal > or = 10 IU/ml Presumed Immune Performed By: #### L509.4000, L3890.6005 #### [facility] [address] [place], [address] HIV - [facility] Collected: 12/26/2017 Status: F Source: [place] 3:27 PM [facility] REPOSITORY TYPE CODE TESTS RESULT OUT OF RANGE REFERENCE UNITS LAB L3890.6005 Nonreactive Normal HIV - [facility] Non-Reactive Performed By: #### L509.4000, L3890.6005 #### [facility] [address] [place], [address] HEPATITIS B SURFACE Collected: 12/26/2017 Status: F Source: [place] AG 3:27 PM [facility] REPOSITORY TYPE CODE TESTS RESULT OUT OF RANGE REFERENCE UNITS LAB L3100.0400 Negative Normal HB Negative SURF AG Result Comment: Performed at: [facility] [id number] Needle Loom Weaver: Dominik Nicholson PhD, Phone: [phone] Performed By: #### L3100.0390, L3100.0625, L3400.0000 #### [facility] (refer to report for specific site) refer to report for address and phone number HEPATITIS C ANTIBODIES Collected: 12/26/2017 Status: F Source: [place] 3:27 PM [facility] REPOSITORY TYPE CODE TESTS RESULT OUT OF RANGE REFERENCE UNITS LAB L3100.0650 0.0-0.9 s/co ratio Normal HEP C AB <0.1 Result Comment: Negative: < 0.8 Indeterminate: 0.8 - 0.9 Positive: > 0.9 The CDC recommends that a positive HCV antibody result be followed up with a HCV Nucleic Acid Amplification test (013649). Performed By: #### L3100.0390, L3100.0625, L3400.0000 #### [facility] (refer to report for specific site) refer to report for address and phone number V-ZOSTER IGG Collected: 12/26/2017 Status: F Source: HANNAH (IMMUNITY) 3:27 PM [facility] REPOSITORY TYPE CODE TESTS RESULT OUT OF RANGE REFERENCE UNITS LAB L3400.0000 Immune >165 index Normal VZOST IgG [id number] Result Comment: Negative <135 Equivocal 135 - [...] 12/13/2017 Status: F Source: HANNAH 11:35 AM [facility] REPOSITORY TYPE CODE TESTS RESULT OUT OF RANGE REFERENCE UNITS LAB L8200.2100 Negative High Chlam POSITIVE Trac PCR LAB L8200.2200 Negative Normal NG by Negative PCR Performed By: #### L8200.2000 #### [facility] [place], [address] ALLERGIES ALLERGIES DATE TYPE / CODE NAME / CODE REACTION SEVERITY SOURCE 07/23/2018 Drug No Known Unknown [place] Allergy/[id number](S Allergies/F0019 [facility]) [address](RXNORM) Hospital Repository Miscellaneous NO KNOWN [place] Allergy/942576320(S ALLERGIES [facility] Hospital Repository ENCOUNTERS ENCOUNTERS ADMIT/DISCHARGE ACCOUNT ADMITTING ENCOUNTER LOCATION SOURCE NUMBER CLASS 07/23/2018/07/26/19 [id number] Adolfo Faulkner Inpatient [address] ing:WPRoom: Repository ZN699Oru: 1 07/23/2018 [id number] [facility] ing:LABSPEC Repository 07/15/2018/07/15/19 [id number] Ambulatory Building:[address] Repository 07/14/2018/07/14/19 [id number] Ambulatory [address] ing:WPOUTRoom Repository : WP011 07/09/2018 [id number] Ambulatory General acute hospital ing:LABSPEC Repository 06/30/2018/07/01/19 [id number] Ambulatory [address] ing:WPOUTRoom Repository : WP017 06/10/2018/06/10/20 [id number] Emergency [address] ing:ED Repository 06/03/2018/06/03/20 [id number] Ambulatory Building:[address] Repository 05/26/2018 [id number] Ambulatory General acute hospital ing:LABSPEC Repository 05/05/2018 [id number] Ambulatory General acute hospital ing:WOBLAB Repository 05/02/2018/05/02/20 [id number] Ambulatory Building:[address] Repository 05/02/2018/05/02/20 [id number] Ambulatory Building:[address] Repository 01/23/2018 [id number] Ambulatory General acute hospital ing:LABSPEC Repository 01/05/2018/01/06/20 [id number] Emergency [address] ing:ED Repository 12/26/2017 [id number] Ambulatory General acute hospital ing:WOBLAB Repository 12/13/2017 [id number] Ambulatory General acute hospital ing:LABSPEC Repository PAYERS PAYERS ENCOUNTER GUARANTOR PAYER SUBSCRIBER SOURCE 07/23/2018 ROSIBEL Barker Primary Insurance:[facility] ROSIBEL Young [id number] [facility] TROLIODOB: [place] Number: [id number] Hospital [address]Gja: 330 [id number] Repository [phone] () Date:[id number] [address]ZH: 07/23/2018 Secondary NOT GIVENUNK [place] Insurance:SELF PAY [facility] Number: Effective Repository Date:2018-07-23 07/23/2018 ROSIBEL Barker Primary Insurance:[facility] ROSIBEL Young [id number] [facility] TROLIODOB: [place] Number: [id number] Hospital [address]Kcz: 330 [id number] Repository [phone] () Date:[id number] [address]DL: 07/23/2018 Secondary NOT GIVENUNK [place] Insurance:SELF PAY [facility] Number: Effective Repository Date:2018-07-23 07/15/2018 ROSIBEL ANNE Primary Insurance:[place] ROSIBEL ANNE [facility] TROLIODOB: [facility] TROLIODOB: [facility] [id number] [facility] [id number] Repository [facility], Number: [address] [place] [address]Uqv: [id number] [place], [place] Date: [phone] (HP) 07/14/2018 ROSIBEL Barker Primary Insurance:[facility] ROSIBEL Barker [place] [id number] SPINK [facility] TROLIODOB: [place] Number: [id number] Hospital [address]Sqi: 330 [id number] Repository [phone] () Date:[id number] [address] [address]XR: 07/14/2018 Secondary NOT GIVENUNK [place] Insurance:SELF PAY [facility] Hospital Number: Effective Repository Date:2018-07-14 07/09/2018 ROSIBEL M Primary Insurance:[facility] ROSIBEL Barker [place] [id number] SPINK [facility] TROLIODOB: [place] Number: [id number] Hospital [address]Tuc: 330 [id number] Repository [phone] () Date:[id number] [address]PJ: 07/09/2018 Secondary NOT GIVENUNK [place] Insurance:SELF PAY [facility] Hospital Number: Effective Repository Date:2018-07-09 06/30/2018 ROSIBEL M Primary IAIN N TROLIODOB: [place] [id number] SPINK Insurance:ANTHEMPolic [id number] [place] Number: [facility] [address]Pgo: (330 [id number] Repository [phone] () Date:5582-82-21JZ [facility] [id number] [place] [address]PD: 06/30/2018 Secondary ROSIBEL M [place] Insurance:[facility] TROLIODOB: [facility] [id number] Hospital Number: Repository [id number] Date:8886-42-95RM [address] [address]UB: 06/30/2018 Tertiary NOT GIVENUNK [place] Insurance:SELF PAY [facility] Number: Effective Repository Date:2018-06-30 06/10/2018 ROSIBEL M Primary IAIN N TROLIODOB: [place] [id number] SPINK Insurance:[place]olic [id number] Number: [facility] [address]Gil: (196) [id number] Repository [phone] (HP) Date:2630-13-88NN [facility] [address]BNHBUPR, [place] [address]PK: 06/10/2018 Secondary ROSIBEL M [place] Insurance:[facility] TROLIODOB: [facility] [id number] Hospital Number: Repository [id number] Date:0818-19-03EQ [address] [place] [address]YR: 06/10/2018 Tertiary NOT GIVENUNK [place] Insurance:SELF PAY [facility] Number: Effective Repository Date:2018-06-10 06/03/2018 ROSIBEL ANNE Primary Insurance:[facility] TROLIODOB: [facility] TROLIODOB: Hospital [facility] [id number] Repository [facility], Number: [address] [place] [address]Zaf: [id number] [place], [place] Date: [phone] () 05/26/2018 ROSIBEL M Primary Insurance:[facility] ROSIBEL M [place] [id number] [facility] [place] [place] Number: [id number] Hospital [address]Vgb: (556) [id number] Repository [phone] (HP) Date:5992-81-65JC [address] [address]SG: 05/26/2018 Secondary NOT GIVENUNK [place] Insurance:SELF PAY [facility] Hospital Number: Effective Repository Date:2018-05-26 05/05/2018 ROSIBEL M Primary Insurance:[facility] ROSIBEL M [place] [id number] [facility] [place]: [place] Number: [id number] [facility] [address]Yjn: 330 [id number] Repository [phone] (HP) Date:6232-77-38XN [address] [place] [address]CT: 05/05/2018 Secondary NOT GIVENUNK [place] Insurance:SELF PAY [facility] Number: Effective Repository Date:2018-05-05 05/02/2018 PETRA Moss Primary Insurance:[place] [facility] TROLIODOB: [facility] TROLIODOB: [facility] [id number] Repository JAHAIRA KAUR, Number: [address] [place] [address]Zzz: [id number] [place] Date: [phone] (HP) 05/02/2018 PETRA Moss Primary Insurance:[place] [facility] TROLIODOB: [facility] TROLIODOB: [facility] [id number] Repository JAHAIRA KAUR, Number: [address] [place] [address]Uaz: [id number] [place], [place] Date: [address] () 01/23/2018 ROSIBEL Barker Primary IAIN N TROLIOUNK [place] [id number] Insurance:ANTHEMPolic Community [place] y Number: [place], [place] [id number] Repository [address]Uvm: (330) Date:8682-40-72CS [phone] () [address] [place] [address]JL: 01/23/2018 Secondary NOT GIVENUNK [place] Insurance:SELF PAY [facility] Number: Effective Repository Date:2018-01-23 01/05/2018 ROSIBEL Barker Primary IAIN N TROLIOUNK [place] [id number] Insurance:ANTHEMPolic Community [place] y Number: [place], [place] [id number] Repository [address]Wnm: (330) Date:6240-35-55BW [phone] () [address]WIS, [place] [address]VB: 01/05/2018 Secondary NOT GIVENUNK [place] Insurance:SELF PAY [facility] Number: Effective Repository Date:2018-01-05 12/26/2017 BOB Gaetano Young [id number] Insurance:ANTHEMPolic Community [place] y [id number] [address]Pve: Date:6535-60-99GS [address]DFEMRQZ, [place] () [address]YK: 12/26/2017 Secondary NOT GIVENUNK [place] Insurance:SELF PAY [facility] Number: Effective Repository Date:2017-12-26 12/13/2017 [facility] IAIN Young [id number] Insurance:ANTHEMPolic Community [place]OBB[place] y [id number] Repository [place] [address]Ifu: Date:5445-79-44BC [address]JBIWMCA, [place] () [address]OF: 12/13/2017 Secondary NOT GIVENUNK [place] Insurance:SELF PAY [facility] Number: Effective Repository Date:2017-12-13
== END ==
PROVIDERS: Visit Provider Obstetrics & Gynecology
DX: Z34.83 Encounter for supervision of other normal pregnancy, third trimester (principal)
CPT/HCPCS: 84112

== ENCOUNTER 2018-07-23 16:45 | Inpatient (IN) | payer MEDICAID, SELFPAY ==
[2018-07-23] MEDS: Lactated Ringers 1,000 ML 50 ML IV ×3 (17:10→22:19)
[2018-07-23 17:20] VITALS: BMI 29.2
[2018-07-23 17:30] LABS: Hematocrit 40.6 % (37-47); Hemoglobin 13.3 g/dl (12.0-15.0); Mean Corp Hgb Conc 32.8 g/gl (32-36); Mean Corpuscular Volume 88.5 fL (81-99); Mean Platelet Vol. 9.6 fl (6.2-12.0); Platelet Count 178 K/mm3 (150-450); RBC Distribution Width CV 13.8 % (11.6-14.6); RBC Distribution Width SD 44.4 fl (35.1-43.9); Red Blood Count 4.59 M/mm3 (4.2-5.4)
[2018-07-23 17:35] LABS: Scan Indicated on CBC? Y/N NO
[2018-07-23] MEDS: Oxytocin 30 units/NS 500 ml 30 UNITS/500 ML IV.SOLN IV (17:49)
[2018-07-23] MEDS: fentaNYL-bupivacaine (epidural) 100 ML BAG EPIDURAL (20:40)
--- NOTE | 2018-07-24 | PLAC_PTH ---
PATIENT: MAGDIEL WONG LOC: WP U#:[id number] AGE/SX: 18/F ROOM: WP003 RE07/23/[address]: Dr. Malick Faulkner MD : 2000 BED: 1 DIS: 07/26/2018 SPEC #: [id number] RECD: 07/24/18 15:03 STATUS: CHUCK REDavi #: [id number] JOSH: 07/24/18 00:[address]: Malick Faulkner DEPT: SURGICAL PATHOLOGY RECD BY: Freddie Freitas ENTERED: 07/24/18 15:04 SP TYPE: PLACENTA OTHR DR: No Primary Care Phys Tissues: Placenta, NOS Procedures: Surgery Specimen Level V HEADER OPERATION: Vaginal delivery PRE-OP DIAGNOSIS: Maternal fever TISSUE SUBMITTED: Placenta MICROSCOPIC DIAGNOSIS Placenta, vaginal delivery: Trammell placenta, 383 gm (10-99th percentile). Acute ascending chorioamnionitis. Three vessel umbilical cord with acute funisitis. Fibromuscular hyperplasia of stem villous blood vessels. Mild intervillous fibrin deposition. Mild villous fibrosis. CE:nahum 07/28/18 MICROSCOPIC DESCRIPTION Slides are reviewed. GROSS DESCRIPTION SPECIMEN: PLACENTA / CLINICAL INFORMATION: A. Weight: 3.527 kg B. Gestational Age: 39 weeks C. Sex: Male PLACENTAL WEIGHT (POST FIXATION): 383 gm PLACENTAL DIMENSIONS: 18 x 16 x 2.5 PLACENTAL SHAPE: Usual ovoid PLACENTAL WEIGHT FOR GESTATIONAL AGE: Within 10-99th percentile MEMBRANES - Present A. Insertion: Marginal B. Site of rupture from edge: 4 cm from edge of placental disc C. Color of membrane: Mar-nolasco D. Abnormalities: None UMBILICAL CORD - Present A. Color: Mar-nolasco B. Insertion: Eccentric C. Length: 34 cm D. Diameter: 1.2 cm E. Number of vessels: Three F. Abnormalities: None PLACENTAL DISC - Present A. Color of surface: Amr-nolasco B. surface abnormalities: None C. Maternal cotyledons: Intact with minimal tears D. Attached retro placental clot: No clot E. Cut surface: Dark red and spongy F. Lesions: None G. Separate clot: Absent SECTIONS SUBMITTED: 1. Membrane roll and umbilical cord ( end inked black) 2. Placental disc, and maternal surfaces 3. Placental disc, and maternal surfaces 4. Placental disc, and maternal surfaces AM:nahum 07/25/18 TC: 2 CPT: 08957
[2018-07-24] MEDS: fentaNYL-bupivacaine (epidural) 100 ML BAG EPIDURAL ×2 (00:18→05:17)
--- NOTE | 2018-07-24 00:43 | PCM.PN.OB ---
Subjective: Comfortable with epidural in place. Objective: Afeb VSS FHR tracing Cat 1. - Physical Exam General: Alert, Oriented x3, Cooperative Lungs: Clear to auscultation, Normal air movement Cardiovascular: Regular rate, Regular Rhythm Abdomen: Soft, Non Tender, Non-Distended, Gravid, Appropriate for Gestational Age Skin: No rashes Neurological: Neuro grossly intact Psych/Mental Status: Normal Affect Comment: 5cm 90% -1 Weight: 165 lb Body Mass Index (BMI) 29.2 Intake and Output for Last 24 Hours 07/22/18 07/23/18 07/24/18 23:59 23:59 23:59 Intake Total 400 / 400 2675 / 2675 Output Total 500 / 500 450 / 450 Balance -100 / -100 2225 / 2225 Laboratory Tests Past 24 Hrs 07/23/18 07/23/18 17:05 17:05 WBC 12.0 H RBC 4.59 Hgb 13.3 Hct 40.6 MCV 88.5 MCH 29.0 MCHC 32.8 RDW 13.8 RDW Differential 44.4 H Plt Count 178 MPV 9.6 Blood Type A POSITIVE Antibody Screen NEGATIVE Medical Necessity - Tobacco Use Smoking Status: Former smoker Assessment/Plan Continue induction with pitocin as tolerated by FHR tracing.
[2018-07-24] MEDS: Lactated Ringers 1,000 ML 50 ML IV ×2 (02:22→06:34)
--- NOTE | 2018-07-24 05:17 | PCM.PN.OB ---
Subjective: Comfortable Objective: Afeb VSS - Physical Exam General: Alert, Oriented x3, Cooperative, No apparent distress Abdomen: Soft, Non Tender, Non-Distended, Gravid, Appropriate for Gestational Age Extremities: No edema Neurological: Neuro grossly intact Psych/Mental Status: Normal Affect Comment: CE /-1 Weight: 165 lb Body Mass Index (BMI) 29.2 Intake and Output for Last 24 Hours 07/22/18 07/23/18 07/24/18 23:59 23:59 23:59 Intake Total 400 / 400 2675 / 2675 Output Total 500 / 500 450 / 450 Balance -100 / -100 2225 / 2225 Laboratory Tests Past 24 Hrs 07/23/18 07/23/18 17:05 17:05 WBC 12.0 H RBC 4.59 Hgb 13.3 Hct 40.6 MCV 88.5 MCH 29.0 MCHC 32.8 RDW 13.8 RDW Differential 44.4 H Plt Count 178 MPV 9.6 Blood Type A POSITIVE Antibody Screen NEGATIVE Medical Necessity - Tobacco Use Smoking Status: Former smoker Assessment/Plan Progressing slowly. Expect fully dilated soon.
--- NOTE | 2018-07-24 07:19 | PCM.PN.OB ---
Subjective: Comfortable with epidural Objective: Afeb VSS FHR tracing Cat 1 - Physical Exam General: Alert, Oriented x3, Cooperative, No apparent distress Lungs: Clear to auscultation, Normal air movement Cardiovascular: Regular rate, Regular Rhythm Abdomen: Soft, Non Tender, Non-Distended, Gravid, Appropriate for Gestational Age Extremities: No edema Skin: No rashes Neurological: Neuro grossly intact Psych/Mental Status: Normal Affect Comment: CE / Weight: 165 lb Body Mass Index (BMI) 29.2 Intake and Output for Last 24 Hours 07/22/18 07/23/18 07/24/18 23:59 23:59 23:59 Intake Total 400 / 400 4191 / 4191 Output Total 500 / 500 500 / 500 Balance -100 / -100 3691 / 3691 Laboratory Tests Past 24 Hrs 07/23/18 07/23/18 17:05 17:05 WBC 12.0 H RBC 4.59 Hgb 13.3 Hct 40.6 MCV 88.5 MCH 29.0 MCHC 32.8 RDW 13.8 RDW Differential 44.4 H Plt Count 178 MPV 9.6 Blood Type A POSITIVE Antibody Screen NEGATIVE Medical Necessity - Tobacco Use Smoking Status: Former smoker Assessment/Plan Making slow progress with labor but pitocin has been off due to intolerance when pitocin augmentation started. Expect fully dilated soon. May be able to push back cervix with pushing efforts. heart rate pattern reassuring at this time.
[2018-07-24] MEDS: Acetaminophen 325 MG Tablet PO (07:50)
[2018-07-24] MEDS: Oxytocin 30 units/NS 500 ml 30 UNITS/500 ML IV.SOLN 334 UNITS IV (10:56)
--- NOTE | 2018-07-24 11:11 | PCM.OB.VAG ---
Vaginal Delivery Maternal Presentation: Spontaneous Rupture of Membranes 39 weeks with SROM Method of Induction: Pitocin Amniotic Membrane Rupture Type: Spontaneous at home Rupture of Membrane time: unsure Amniotic Fluid Description: Clear Final MARC: 07/31/18 Final MARC Source: US <20 weeks Gestational age: 39 Weeks and 0 Days Date of Procedure: 07/24/18 Pre-Operative Diagnosis: same Post-Operative Diagnosis: same Surgery/ Procedure Performed: Spontaneous Vaginal Delivery Anesthesiologist: Jack Cleveland Type of Anesthesia: Epidural Description of Procedure: Presented to the office yesterday with report of possible SROM 2 days ago. Was sent to [facility] for induction of labor. Pitocin induction was started and was used intermittently due to heart rate tracing. Progressed to then pushed for 2 1/2 hours to deliver a live male without complication. Pediatrics was rpesent at delivery due to maternal fever and diagnosis of bilateral club feet. Baby had active cry at delivery. Delayed cord clamping was employed. The placenta delivered spntaneously intact with a centrally located 3VC. The uterus contracted well. The vagina, cervix and perineum were intact. Presentation: Vertex Placental Delivery Description: Spontaneous Placenta Disposition: Sent to Pathology Percentage of Placenta Abruption: 0 Cord Vessel Description: 3 Vessels Nuchal Cord Compression: Without compression Cord Entanglement: None Drain: Granados to straight drain Estimated Blood Loss: 200cc (1 minute): 8 (5 minute): 9 Episiotomy Description: None Laceration: None Medications given after delivery: IV Pitocin Complications: None
--- NOTE | 2018-07-24 11:22 | DCINST_ITS ---
Discharge Diet: No Restrictions Discharge Activity: Return to Normal Activity, No Restrictions, May Drive, May Shower Return to work on:: 09/22/18 May shower in (days): 0 May resume sexual activity in: 4-6 weeks Call your doctor if your incision/area has: Sudden Increased Bleeding, Increased Pain/ Swelling, Foul Smelling Discharge Call your doctor if you observe: Fever of 101 or Higher, Inability to urinate, Inability to have a bowel movement, Using more than one pad per hour, Shortness of breath, Chest pain, Calf discomfort, Uncontrolled pain Cleanse incision/area with: Soap & Water Additional Instructions: If you experience any of the following, contact your healthcare provider. * Bleeding that soaks a pad every hour for 2 hours * Fever 100.4 or higher * Unrelieved incision or abdominal pain * Swelling, redness, discharge or bleeding from your incision or episiotomy site * Your incision begins to separate * Problems urinating (including inability to urinate or burning while urinating). * Visual changes * Severe headache * Flu-like symptoms * Pain or redness in one of both of your breasts * Pain, warmth, tenderness or swelling in your legs, especially the calf area * Frequent nausea and vomiting * Symptoms of depression or anxiety If you experience any of the following, call 911 or go to the nearest Emergency Room. * Chest pain * Problems breathing * Seizure activity * Partial or complete paralysis of a body part, slurred speech, weakness or drooping of the face, or a sudden inability to walk or hold your balance Allergies/Adverse Reactions: Allergies No Known Allergies Allergy (Verified 07/23/18 17:21) Medications to take at Discharge Calcium Carbonate [Calcium] 500 mg PO DAILY 06/10/18 Ferrous Sulfate 325 mg PO BID 06/10/18 Ibuprofen 600 mg PO 4X/DAY #30 tab 07/24/18 The following prescriptions were given: Ibuprofen 600 mg PO 4X/DAY #30 tab Please Follow Up With: Malick Faulkner MD When: 6 weeks Primary Care Physician: Care Physician,No Primary [Primary Care Provider] - Test Results: Test results from this visit will be discussed in further detail at your follow- up appointment, if applicable. Proposed Discharge Date: 07/26/18
[2018-07-24] MEDS: Oxytocin 30 units/NS 500 ml 30 UNITS/500 ML IV.SOLN 167 UNITS IV (11:26)
[2018-07-24] MEDS: Ibuprofen 600 MG Tablet PO (11:30)
[2018-07-24] MEDS: Acetaminophen 500 MG Tablet 1000 MG PO (12:03)
--- NOTE | 2018-07-24 12:08 | NURSING ---
orders received from for amp and gent, see orders cbc to be drawn in am
[2018-07-24 14:31] VITALS: BP 97/51; PULSE 88; RESP 16; TEMP 36.5
[2018-07-24] MEDS: Ferrous Sulfate 325 MG Tablet PO (19:39)
[2018-07-24 20:01] VITALS: BP 129/79; PULSE 91; RESP 16; TEMP 37.1; O2SAT 96
[2018-07-25 01:24] VITALS: BP 93/48; PULSE 99; RESP 16; TEMP 37; O2SAT 96
[2018-07-25 03:56] VITALS: BP 94/48; PULSE 96; RESP 15; TEMP 37.3; O2SAT 97
[2018-07-25 06:37] LABS: Hematocrit 35.6 % (37-47); Hemoglobin 11.9 g/dl (12.0-15.0); Mean Corp Hgb Conc 33.4 g/gl (32-36); Mean Corpuscular Hgb 29.5 pg (27.0-32.0); Mean Corpuscular Volume 88.3 fL (81-99); Mean Platelet Vol. 9.2 fl (6.2-12.0); Platelet Count 148 K/mm3 (150-450); RBC Distribution Width CV 13.6 % (11.6-14.6); RBC Distribution Width SD 42.5 fl (35.1-43.9); Red Blood Count 4.03 M/mm3 (4.2-5.4); White Blood Count 16.6 K/mm3 (4.4-11.0)
[2018-07-25 06:45] LABS: Scan Indicated on CBC? Y/N NO
[2018-07-25 07:40] VITALS: BP 103/61; PULSE 97; RESP 16; TEMP 36.4; O2SAT 99
[2018-07-25] MEDS: Ferrous Sulfate 325 MG Tablet PO ×2 (07:41→17:32)
[2018-07-25] MEDS: Calcium (Elemental) 500 MG Tablet PO (07:41)
--- NOTE | 2018-07-25 08:24 | PCM.PN.OB ---
Subjective: No specific complaints. Bleeding light. Bottle feeding. Objective: Afeb VSS Hgb stable. WBC not significantly elevated - Physical Exam General: Alert, Oriented x3, Cooperative, No apparent distress Lungs: Clear to auscultation, Normal air movement Cardiovascular: Regular rate, Regular Rhythm Abdomen: Soft, Non Tender, Non-Distended, - - Fundus firm nontender Extremities: No edema Skin: No rashes Neurological: Neuro grossly intact Psych/Mental Status: Normal Affect Comment: Lochia light Vital Signs Temp Pulse Resp BP Pulse Ox 99.1 F 96 15 94/48 L 97 07/25/18 03:56 07/25/18 03:56 07/25/18 03:56 07/25/18 03:56 07/25/18 03:56 Oxygen Delivery Method Room Air Weight: 165 lb Body Mass Index (BMI) 29.2 Intake and Output for Last 24 Hours 07/23/18 07/24/18 07/25/18 23:59 23:59 23:59 Intake Total 400 / 400 4401 / 4401 Output Total 500 / 500 500 / 500 Balance -100 / -100 3901 / 3901 Laboratory Tests Past 24 Hrs 07/25/18 06:24 WBC 16.6 H RBC 4.03 L Hgb 11.9 L Hct 35.6 L MCV 88.3 MCH 29.5 MCHC 33.4 RDW 13.6 RDW Differential 42.5 Plt Count 148 L MPV 9.2 Medical Necessity - Tobacco Use Smoking Status: Former smoker Assessment/Plan Doing well on PP day#1. Will stop antibiotics. Continue routine PP care. Baby to receive antibiotics for 48 hours.
[2018-07-25] MEDS: Senna/Docusate Sodium 1 Tablet PO (10:02)
[2018-07-25 13:45] VITALS: BP 115/78; PULSE 99; RESP 18; TEMP 36.6; O2SAT 96
--- NOTE | 2018-07-25 18:25 | CASEMGMT ---
Social Work Assessment Labor and Delivery Unit Date of Referral: 07/24/18 Referred By: NURSE Date of Intervention: 07/25/18 Time of Intervention: 6:25P Reason for Referral: FIRST TIME MOM History obtained from: MOB AND MEDICAL CHART Household composition: KALLIE GODFREY LIVES WITH SIG OTHER/SAI ORTIZ IN FOB?S GRANDPARENTS HOME. Financial Status: MOB AND FOB BOTH WORK AND STATE HAVE NO ISSUES WITH FINANCES. Supplies: KALLIE REPORTS HAS ALL NEEDS MET FOR BABY AND WILL BE BOTTLE FEEDING. Childcare/Caregiver(s): KALLIE GODFREY HAS GOOD SUPPORT FROM FAMILY WHO WILL BE ABLE TO ASSIST NEEDED. KALLIE GODFREY WILL BE TAKING MATERNITY LEAVE. Transportation: DENIES ANY NEEDS Programs/Agencies Involved: [facility], [facility] Children Services/Legal Issues: NONE REPORTED Behavioral Health Issues: Mental Health History: NONE REPORTED Substance Use History: NONE REPORTED BY MOB. FOB DOES STATE CONSUMES ALCOHOL EVERY DAY. Family/Social Stressors: KALLIE DOES NOT REPORT ANY STRESSORS AT THIS TIME. Support Systems: KALLIE STATES GOOD SUPPORT FROM SIG OTHER/FOB AND BOTH SETS OF FAMILY. Depression/Shaken Baby/Safe Sleeping EDUCATION PROVIDED ASSESSMENT: KALLIE IS A 18 Y/O SINGLE FEMALE WHO REPORTS SHE AND SIG OTHER/FOB HAVE BEEN TOGETHER FOR A LITTLE OVER 1 YEAR. KALLIE STATES FONadiya HAS BEEN VERY SUPPORTIVE AND THEY LIVE TOGETHER IN FOB?S GRANDPARENTS HOUSE. KALLIE DENIES ANY CONCERNS FOR SAFETY. KALLIE REPORTS GOOD SUPPORT FROM BOTH SIDES OF FAMILY. KALLIE DENIES ANY HX OF MENTAL HEALTH OR SUBSTANCE ABUSE. ANGEL DOES ADMIT TO HIS DAILY USE OF ALCOHOL AND STATES THAT WILL BE CHANGING NOW THAT BABY HAS ARRIVED. MOB AND FOB ARE BOTH EMPLOYED AND STATE FAMILY WILL ASSIST NEEDED. [facility] ROTARY PLANER SET UP OPERATOR FOR BABY APRIL KUHN WILL BE DR. VERNON. [facility] [place]TA[place] WITH [facility]. EDUCATION PROVIDED ON HELP ME GROW AND KALLIE GODFREY HAS RECEIVED INFORMATION IN THE MAIL AND DECLINES REFERRAL AT THIS TIME. MOB AND FOB BOTH APPROPRIATE WITH CARE OF BABY DURING THIS WORKER?S ASSESSMENT. EDUCATION PROVIDED ON PPD. NO QUESTIONS OR CONCERNS. UPDATED NURSE ON THIS WORKER?S ASSESSMENT. PLAN: HOME WITH FOB AND SUPPORT OF FAMILY. No other services requested or indicated. -Camila Garland, VENTILATOR SPECIALIST, GENERATOR OPERATOR
[2018-07-25 19:44] VITALS: BP 123/76; PULSE 100; RESP 18; TEMP 36.9; O2SAT 96
[2018-07-26 02:30] VITALS: BP 121/74; PULSE 82; RESP 16; TEMP 36.6; O2SAT 98
[2018-07-26 07:43] VITALS: BP 108/61; PULSE 67; RESP 16; TEMP 36.9; O2SAT 96
--- NOTE | 2018-07-26 07:43 | PCM.PN.OB ---
Subjective: PPD#2 Vaginal delivery Doing well. Bottle feeding. Pain control adequate. no concerns voiced. Plans to go home today. - Physical Exam General: Alert, Oriented x3, Cooperative, No apparent distress HEENT: Atraumatic Neck: Supple Abdomen: Soft - Fundus firm NT at umbilicus minus 2 cm. Psych/Mental Status: Normal Affect Vital Signs Temp Pulse Resp BP Pulse Ox 97.8 F 82 16 121/74 H 98 07/26/18 02:30 07/26/18 02:30 07/26/18 02:30 07/26/18 02:30 07/26/18 02:30 Oxygen Delivery Method Room Air Weight: 74.843 kg Body Mass Index (BMI) 29.2 Intake and Output for Last 24 Hours 07/24/18 07/25/18 07/26/18 23:59 23:59 23:59 Intake Total 4401 / 4401 Output Total 500 / 500 Balance 3901 / 3901 Medical Necessity - Tobacco Use Smoking Status: Former smoker Assessment/Plan PPD#2 Vaginal delivery Stable pp. Dischg home today. RTO in 6 wk for pp check.
[2018-07-26] MEDS: Calcium (Elemental) 500 MG Tablet PO (07:48)
[2018-07-26] MEDS: Ferrous Sulfate 325 MG Tablet PO (07:48)
--- NOTE | 2018-07-26 09:59 | PCM.DC.SUM ---
Discharge Date and Diagnosis Date of Admission: 07/23/18 - 39 wk prolonged SPROM Date of Discharge: 07/26/18 - induction to vaginal delivery Hospital Course and Treatment Operations: - - induction of labor Summary of Care Provided: The patient is a 18 year old female sent from [facility] at 39 wk EGA with possible SPROM x two days. Admitted for induction. Went on to deliver a kamara viable male. (bilateral clubbed feet noted) Baby with 8/9 Apgars. Postdelivery course uneventful and sent no PPD#2 after vaginal delivery - Physical Exam Vital Signs Temp Pulse Resp BP Pulse Ox 98.5 F 67 16 108/61 96 07/26/18 07:43 07/26/18 07:43 07/26/18 07:43 07/26/18 07:43 07/26/18 07:43 Oxygen Delivery Method Room Air Weight: 74.843 kg Body Mass Index (BMI) 29.2 Intake and Output for Last 24 Hours 07/24/18 07/25/18 07/26/18 23:59 23:59 23:59 Intake Total 4401 / 4401 Output Total 500 / 500 Balance 3901 / 3901 Discharge Diet: No Restrictions Discharge Activity: Return to Normal Activity, No Restrictions, May Drive, May Shower Return to work on:: 09/22/18 May shower in (days): 0 May resume sexual activity in: 4-6 weeks Call your doctor if your incision/area has: Sudden Increased Bleeding, Increased Pain/ Swelling, Foul Smelling Discharge Call your doctor if you observe: Fever of 101 or Higher, Inability to urinate, Inability to have a bowel movement, Using more than one pad per hour, Shortness of breath, Chest pain, Calf discomfort, Uncontrolled pain Cleanse incision/area with: Soap & Water Home Medications: Medications to take at Discharge Calcium Carbonate [Calcium] 500 mg PO DAILY 06/10/18 Ferrous Sulfate 325 mg PO BID 06/10/18 Ibuprofen 600 mg PO 4X/DAY #30 tab 07/24/18 Following Prescrptions Were Given to Patient: Ibuprofen 600 mg PO 4X/DAY #30 tab Primary Care Physician: Care Physician,No Primary [Primary Care Provider] - Please Follow Up With: Malick Faulkner MD Medical Necessity - Tobacco Use Smoking Status: Former smoker Meaningful Use Info Meaningful Use Diagnoses (Choose all that apply): None applicable
[2018-07-30 10:07] LABS: Pathology Specimen OB SEE PATHOLOGY REPORT
--- NOTE | 2018-07-31 16:35 | NURSING ---
Unable to leave a voicemail. Bob NAPIER
== END 2018-07-26 10:30 | disposition home or self-care (01) | DRG 560 ==
PROVIDERS: Admitting Provider Obstetrics & Gynecology; Referring Provider Obstetrics & Gynecology; Visit Provider Obstetrics & Gynecology
DX: O66.3 Obstructed labor due to other abnormalities of fetus (principal); Z3A.39 39 weeks gestation of pregnancy; Z37.0 Single live birth; Z87.891 Personal history of nicotine dependence; O75.2 Pyrexia during labor, not elsewhere classified; Z34.83 Encounter for supervision of other normal pregnancy, third trimester
CPT/HCPCS: 59025; 59050; 84112; 85027; 86850; 86900; 88307; 99218; J7120; G0378

== ENCOUNTER 2018-09-14 15:08 | Emergency (ER) | payer MEDICAID, SELFPAY ==
[2018-09-14 15:09] VITALS: BP 123/77; PULSE 124; RESP 15; TEMP 39.4; O2SAT 100; BMI 25.0
[2018-09-14 15:57] LABS: Glucose, Dipstick Normal (Normal); Ketone-Dipstick Negative (Negative); Leukocyte Esterase-Dipstick 500 /ul (Negative); Mucous, Urine 0 SEEN /hpf (<or=2+); Nitrite-Dipstick Negative (Negative); Occult Blood-Urine 25 /ul (Negative); Protein-Dipstick 15 mg/dl (Negative); Specific Gravity, Urine 1.005 (1.002-1.030); Urine Bilirubin Dipstick Negative (Negative); Urine Urobilinogen Normal (Normal); Urine pH 6.5 (5.0 - 8.0)
[2018-09-14 15:58] LABS: Color, Urine Yellow (Yellow); Urine Clarity Clear (Clear)
[2018-09-14 16:16] LABS: White Blood Cells >100 SEEN /hpf (0-5)
[2018-09-14 16:17] LABS: Bacteria 2+ /hpf (None Seen); Red Blood Cells-Urine 0-5 SEEN /hpf (0-5); Squamous Epithelial Cells - UA 50-100 SEEN /hpf (5-10)
--- NOTE | 2018-09-14 16:39 | ED.DCSUM_ITS ---
- ER Visit Summary Date of Service: 09/14/18 Chief Complaint: Fever History of Present Illness: The patient is a 18 F with fever over the past 24 hours some upper airway congestion. She does have cough and congestion. She has no urinary symptoms. She has no abdominal pain neck pain or neck stiffness. No rash. She has no shortness of breath. Physical Examination: Patient is febrile, slight tachycardia, she has clear lungs bilaterally she has upper airway congestion and rhinorrhea. She is soft nontender abdomen with no rash. She has a supple neck. Emergency Department Course and Treatment: Patient is found to have influenza, her urine is contaminated, I cultured it. I do not recommend treatment at this time there are no respiratory symptoms Patient was reassured and educated. Disposition: Discharge stable condition Impression: Influenza This note was generated with [employer] dictation software. It may contain incorrect words, spelling, and punctuation that were not noted in review of the chart prior to signing ED Disposition - Plan for ED Patient: Disposition: Home or Assisted Living Instructions: Influenza Prescriptions: Naproxen [Naprosyn] 500 mg PO BID PRN #20 tab Referrals: Care Physician,No Primary [Primary Care Provider] - 3-5 Days
[2018-09-14 16:51] VITALS: RESP 19; TEMP 39.5
--- NOTE | 2018-09-14 16:51 | ED.RN ---
DISCHARGE INSTRUCTIONS GIVEN TO AND REVIEWED WITH PATIENT, PATIENT DENIES QUESTIONS OR CONCERNS AND VOICES UNDERSTANDING OF DISCHARGE INSTRUCTIONS. PT AMBULATES OUT OF ROOM WITHOUT DIFFICULTY.
== END 2018-09-14 16:52 | disposition home or self-care (01) ==
PROVIDERS: Emergency Provider Emergency Medicine
DX: J11.1 Influenza due to unidentified influenza virus with other respiratory manifestations (principal)
CPT/HCPCS: 81001; 87086; 87088; 87804; 99282

== ENCOUNTER → 2018-12-23 | Outpatient (CLI) | payer MEDICAID, SELFPAY ==
[2018-12-23 23:04] LABS: Chlamydia Trachomatis by PCR Negative (Negative); Neisserai gonorrhoeae by PCR Negative (Negative); Probe Check PASS; Sample Adequacy Control PASS; Specimen Processing Control PASS
[2019-01-02 15:31] LABS: HPV Reflexed? NOT INDICATED
== END | disposition home or self-care (01) ==
PROVIDERS: Referring Provider Obstetrics & Gynecology; Visit Provider Obstetrics & Gynecology
DX: Z12.4 Encounter for screening for malignant neoplasm of cervix (principal); Z11.3 Encounter for screening for infections with a predominantly sexual mode of transmission
CPT/HCPCS: 87491; 87591; 88175; G0145

== ENCOUNTER 2019-01-20 11:32 | Emergency (ER) | payer MEDICAID, SELFPAY ==
[2019-01-20 11:33] VITALS: BP 115/69; PULSE 80; RESP 16; TEMP 36.6; O2SAT 97; BMI 25.7
--- NOTE | 2019-01-20 11:51 | ED.DCSUM_ITS ---
- ER Visit Summary Date of Service: 01/20/19 Chief Complaint: Bilateral eye redness and swelling History of Present Illness: The patient is a 18 F who has had 4 days of bilateral eye redness and swelling. This started after she laid out into the sun. She has mild itching to the eyes. No visual changes. She wears contact lenses and glasses but since this started she is only been wearing her glasses. She did not wear sunglasses when she was out in the sun. She denies any drainage from the eyes. Physical Examination: Vital signs reviewed. Bilateral eye exam reveals diffuse injection. There is periorbital swelling which is mild. No erythema. Is not warm to touch. we will call back with ICU, general surgery and ENT. pupils are equal. Extraocular motions are intact. Test Results: main [place] none performed Emergency Department Course and Treatment: The patient appears to have a UV keratitis bilaterally. I will give her bacitracin ophthalmic to put into both eyes. She will ice her face to help with swelling. She will follow-up with ophthalmology Treatment Plan: [] Disposition: Discharge Impression: UV keratitis This note was generated with [employer] dictation software. It may contain incorrect words, spelling, and punctuation that were not noted in review of the chart prior to signing ED Disposition - Plan for ED Patient: Referrals: Care Physician,No Primary [Primary Care Provider] -
--- NOTE | 2019-01-20 11:53 | ED.DEP ---
ED Disposition - Plan for ED Patient: Disposition: Home or Assisted Living Instructions: Ultraviolet Keratitis Referrals: Care Physician,No Primary [Primary Care Provider] -
== END 2019-01-20 11:59 | disposition home or self-care (01) ==
PROVIDERS: Emergency Provider Emergency Medicine
DX: H16.133 Photokeratitis, bilateral (principal); X32.XXXA Exposure to sunlight, initial encounter; Y93.9 Activity, unspecified; Y92.9 Unspecified place or not applicable; Z72.0 Tobacco use
CPT/HCPCS: 99282

== ENCOUNTER → 2019-07-30 | Outpatient (CLI) | payer MEDICAID, SELFPAY | END | disposition home or self-care (01) | LOC: LABSPEC 15:18 | PROVIDERS: Visit Provider Obstetrics & Gynecology | DX: R30.0 Dysuria (principal) | CPT/HCPCS: 87086; 87088 ==

== ENCOUNTER 2021-07-10 13:38 | Outpatient (CLI) | payer MEDICAID, SELFPAY ==
[2021-07-10 14:51] LABS: Hematocrit 45.7 % (37-47); Hemoglobin 14.5 g/dL (12.0-15.0); Mean Corp Hgb Conc 31.7 g/dL (32-36); Mean Corpuscular Hgb 26.1 pg (27.0-32.0); Mean Corpuscular Volume 82.2 fL (81-99); Mean Platelet Vol. 9.6 fl (6.2-12.0); Platelet Count 260 K/mm3 (150-450); RBC Distribution Width CV 12.7 % (11.6-14.6); RBC Distribution Width SD 38.1 fl (35.1-43.9); Red Blood Count 5.56 M/mm3 (4.2-5.4)
[2021-07-10 15:22] LABS: hCG Titer Quant., Serum < 1 mIU/mL (1-3)
[2021-07-10 23:24] LABS: Estradiol 55.4 pg/mL; Follicle Stimulating Hormone 7.3 mIU/mL; Prolactin 8.2 ng/mL; T4 Free Direct 1.01 ng/dL (0.76-1.46); Thyroid Stim Hormone (TSH) 1.22 uIU/mL (0.358-3.74)
== END 2021-07-10 23:59 | disposition short-term general hospital (02) ==
LOC: WOBLAB 13:38
PROVIDERS: Visit Provider Obstetrics & Gynecology
DX: N91.2 Amenorrhea, unspecified (principal)
CPT/HCPCS: 36415; 82670; 83001; 83002; 84146; 84439; 84443; 84702; 85027

== ENCOUNTER → 2021-12-22 | Outpatient (CLI) | payer MEDICAID, SELFPAY ==
[2021-12-22 10:02] LABS: Progesterone Level 5.63 ng/mL (See Comment)
== END | disposition home or self-care (01) ==
LOC: WOBLAB 09:00
PROVIDERS: Visit Provider Obstetrics & Gynecology
DX: N97.0 Female infertility associated with anovulation (principal)
CPT/HCPCS: 36415; 84144

== ENCOUNTER → 2022-01-12 | Outpatient (CLI) | payer MEDICAID, SELFPAY | END | disposition home or self-care (01) | LOC: LABSPEC 09:35 | PROVIDERS: Visit Provider Obstetrics & Gynecology | DX: N76.89 Other specified inflammation of vagina and vulva (principal) ==

== ENCOUNTER → 2022-02-09 | Outpatient (CLI) | payer MEDICAID, SELFPAY | END | disposition home or self-care (01) | LOC: LABSPEC 16:35 | PROVIDERS: Referring Provider Student in an Organized Health Care Education/Training Program; Visit Provider Student in an Organized Health Care Education/Training Program | DX: R30.0 Dysuria (principal) | CPT/HCPCS: 87086; 87088 ==

== ENCOUNTER → 2022-03-07 | Outpatient (CLI) | payer MEDICAID, SELFPAY ==
[2022-03-07 11:13] LABS: Absolute Lymphocyte Count 1.64 X10^3/uL (0.83-4.51); Absolute Neutrophil Count 8.2 X10^3/uL (2.0-7.7); Basophil# 0.03 X10^3/uL; Basophil% 0.3 % (0-1); Eosinophil# 0.15 X10^3/uL; Eosinophils% 1.4 % (0-5); Hematocrit 41.7 % (37-47); Hemoglobin 13.9 g/dL (12.0-15.0); Lymphocyte # 1.64 X10^3/ul (0.83-4.51); Lymphocyte % 15.5 % (19-41); Mean Corp Hgb Conc 33.3 g/dL (32-36); Mean Corpuscular Hgb 26.7 pg (27.0-32.0); Mean Corpuscular Volume 80.2 fL (81-99); Mean Platelet Vol. 9.3 fl (6.2-12.0); Monocyte# 0.55 X10^3/uL; Monocyte% 5.2 % (0-10); NRBC Flagged by Analyzer 0 % (0-5); Neutrophil # 8.19 X10^3/uL (2.7-7.7); Neutrophil % 77.3 % (47-70); Platelet Count 210 K/mm3 (150-450); RBC Distribution Width CV 13.4 % (11.6-14.6); RBC Distribution Width SD 38.7 fl (35.1-43.9); White Blood Count 10.6 K/mm3 (4.4-11.0)
[2022-03-07 14:21] LABS: HIV - WCH Non-Reactive (Nonreactive); Hepatitis B Surface Antigen Non-Reactive (Nonreactive); Hepatitis C Antibody Non-Reactive (Nonreactive); Rubella IgG Reactive (Nonreactive); Syphilis Antibodies Non-reactive
[2022-03-08 09:51] LABS: V-Zoster IgG (Immunity) 844 index (Immune >165)
[2022-03-08 21:07] LABS: Chlamydia By Nucleic Acid AMP Negative (Negative)
[2022-03-11 15:58] LABS: Gonococcus By Nucleic Acid AMP Negative (Negative)
[2022-03-13 16:02] LABS: HPV Reflexed? NOT INDICATED
== END | disposition home or self-care (01) ==
LOC: WOBLAB 10:09
PROVIDERS: Visit Provider Obstetrics & Gynecology
DX: Z34.81 Encounter for supervision of other normal pregnancy, first trimester (principal); Z11.3 Encounter for screening for infections with a predominantly sexual mode of transmission; Z12.4 Encounter for screening for malignant neoplasm of cervix
CPT/HCPCS: 36415; 85025; 86703; 86762; 86780; 86787; 86803; 87077; 87086; 87088; 87186; 87340; 87491; 87591; 88175; G0145

== ENCOUNTER → 2022-07-03 | Outpatient (CLI) | payer MEDICAID, SELFPAY ==
[2022-07-03 09:26] LABS: Absolute Lymphocyte Count 1.62 X10^3/uL (0.83-4.51); Absolute Neutrophil Count 5.1 X10^3/uL (2.0-7.7); Basophil# 0.02 X10^3/uL; Basophil% 0.3 % (0-1); Eosinophils% 1.4 % (0-5); Hematocrit 35.7 % (37-47); Hemoglobin 11.6 g/dL (12.0-15.0); Lymphocyte # 1.62 X10^3/ul (0.83-4.51); Lymphocyte % 22.4 % (19-41); Mean Corp Hgb Conc 32.5 g/dL (32-36); Mean Corpuscular Hgb 27.7 pg (27.0-32.0); Mean Corpuscular Volume 85.2 fL (81-99); Mean Platelet Vol. 9.1 fl (6.2-12.0); Monocyte# 0.37 X10^3/uL; Monocyte% 5.1 % (0-10); NRBC Flagged by Analyzer 0 % (0-5); Neutrophil # 5.09 X10^3/uL (2.7-7.7); Neutrophil % 70.4 % (47-70); Platelet Count 205 K/mm3 (150-450); RBC Distribution Width CV 13.2 % (11.6-14.6); RBC Distribution Width SD 40.6 fl (35.1-43.9); Red Blood Count 4.19 M/mm3 (4.2-5.4); White Blood Count 7.2 K/mm3 (4.4-11.0)
[2022-07-03 09:53] LABS: Glucose Challenge Gest 1H 50g 152 mg/dL (70-140)
== END | disposition home or self-care (01) ==
LOC: WOBLAB 09:04
PROVIDERS: Visit Provider Obstetrics & Gynecology
DX: Z34.82 Encounter for supervision of other normal pregnancy, second trimester (principal)
CPT/HCPCS: 36415; 82950; 85025

== ENCOUNTER → 2022-07-05 | Outpatient (CLI) | payer MEDICAID, SELFPAY ==
[2022-07-05 09:35] LABS: Glucose GTT-Gestation. Fasting 98 mg/dL (<105)
[2022-07-05 10:50] LABS: Glucose GTT-Gestational 1 Hr 100 mg/dL (<190)
[2022-07-05 11:24] LABS: Glucose GTT-Gestational 2 Hr 86 mg/dL (<165)
[2022-07-05 12:33] LABS: Glucose GTT-Gestational 3 Hr 81 L (<145)
== END | disposition home or self-care (01) ==
LOC: WOBLAB 08:43
PROVIDERS: Visit Provider Obstetrics & Gynecology
DX: Z34.82 Encounter for supervision of other normal pregnancy, second trimester (principal)
CPT/HCPCS: 36415; 82951; 82952

== ENCOUNTER 2022-09-05 10:31 | Emergency (ER) | payer MEDICAID, SELFPAY ==
[2022-09-05 10:32] VITALS: BP 124/78; PULSE 129; RESP 18; TEMP 35.9; O2SAT 96; BMI 31.3
[2022-09-05 10:52] VITALS: BP 80/53; PULSE 96; RESP 15; O2SAT 97
--- NOTE | 2022-09-05 11:07 | EDS_ITS ---
HPI History of Present Illness Chief Complaint: Syncope Informant: patient and spouse/S.O. Onset/Context/Timing Onset: Today Context: Sudden Onset Timing: Intermittent Quality: Passed off Location: Sitting front seat passenger of car. Current Severity: Gone Maximum Severity: Moderate Worsened by: Nothing Relieved by: Nothing Associated Symptoms Associated Symptoms: Reported diaphoresis and vision became black Narrative Narrative: Patient is a 22-year-old G2, P1 female who is 35 weeks gestation who only has a youth liaison officer. She contacted youth liaison officer who stated go to the emergency room . Patient was in the car with her . was driving to the [employer]. She informed her she felt she was going to pass out. She does endorse being diaphoretic. states there was no abnormal motor activity. She was unresponsive for approximately 1 minute. When she awoke there was no postictal state. She presently denies headache, visual, ocular auditory symptoms. She denies cardiac or respiratory symptoms. She denies abdominal pain or back pain. She denies leg pain, swelling or discoloration. Her only medication is a vitamin. She has never had this happen to her before. Prior similar symptoms: No Recent Illness/Hospitalization: No PFSH PFSH Medical History no medical history no medical history Home Medications 09/05/22 [History Last Taken Unknown] Allergy/AdvReac Type Severity Reaction Status Date / Time No Known Allergies Allergy Verified 09/05/22 10:35 Family History no significant family his Surgical History no surgical history Social History (Updated 09/05/22 @ 11:[address] Jono Scott MD) household members: spouse and children Smoking Status: Current every day smoker tobacco type: e-cigarettes substance use type: does not use ROS ROS ED Constitutional Constitutional ED: Denies chills, fever(s), subjective, sweats or weight loss Eyes Eyes: Reports blurry vision bilateral; Denies change in vision or diplopia ENT ENT ED: Denies ear pain, rhinorrhea or sore throat Cardiovascular Cardiovascular: Denies chest pain, orthopnea, palpitations, paroxysmal nocturnal dyspnea or racing heartbeat Respiratory/Chest Respiratory/Chest: Denies cough, dyspnea, dyspnea on exertion, orthopnea or paroxysmal nocturnal dyspnea Gastrointestinal Gastrointestinal: Reports other Details: Gravid uterus approximately 3 to 4 fingerbreadths below the xiphoid process. ; Denies abdominal pain, constipation, diarrhea, melena, nausea or vomiting Genitourinary Genitourinary ED: Reports urinary frequency; Denies dysuria or hematuria Musculoskeletal Musculoskeletal: Denies arthralgias, back pain, myalgias or neck pain Integumentary Denies abscess, Abrasions or rash Neurologic Neurologic: Denies headache(s), paresthesias or weakness Hematologic/Lymphatic Hematologic/Lymphatic: Reports systems reviewed and no addt'l complaints, except as documented EXAM Physical Exam Const Vital Signs: 09/05/22 10:32 09/05/22 10:52 09/05/22 10:53 Temperature 96.7 F L Temperature Source Temporal Pulse Rate 129 H 96 Respiratory Rate 18 15 Respiratory Effort Normal Respiratory Pattern Normal Blood Pressure 124/78 H 80/53 L Blood Pressure Mean 93 62 Pulse Ox 96 97 Oxygen Delivery Method Room Air Room Air Positive well nourished and well developed General Appearance ED: well developed and NAD; Negative for cyanotic, diaphoretic or pallor HEENT Reports moist mucous membranes and dry mucous membranes Mouth ED: Yes dry mucous membranes Mouth: dry mucous membranes Eyes PERRL and EOMs intact bilaterally Neck no lymphadenopathy, supple and no JVD Chest Wall inspection of chest normal Resp normal respiratory effort and clear to auscultation bilaterally Cardio regular rate, regular rhythm, S1 normal heart sound, S2 normal heart sound and no murmurs GI normal to inspection, nondistended, normoactive bowel sounds and non-tender; Negative for hepatosplenomegaly or no masses GI Narrative: Gravid uterus Palpation: soft Extremity normal to inspection Extremity Narrative: There is no asymmetry, swelling, discoloration, leg vein distention, palpable cords or tenderness along the distribution of the deep venous system. Neuro oriented x3, CN's II-XII intact bilaterally and no sensory deficits noted Sensorium / Orientation: alert Psych mental status grossly normal Skin no rashes or lesions noted and no wounds General Skin Exam: elasticity normal; Negative for jaundice or pallor MDM MDM MDM Narrative Medical decision making narrative: Patient had syncopal episode. This most likely represents a vasovagal episode. Since patient's never had a syncopal episode and has not had an EKG will obtain EKG to determine if there is any evidence of WPW, Nixon long Ganong syndrome, prolonged QT interval or findings suggestive of Brugada syndrome. Vital signs were noted. First vital sign revealed a heart rate of 129. Patient was asymptomatic when she presented. Repeat heart rate is in the 90s. Monitor revealed a normal sinus rhythm rate of 90 without ectopy. Rhythm Strip Rhythm Strip: Sinus Rhythm Rate: 90 Ectopy: None EKG Initial EKG: Attestation: I personally reviewed and interpreted this EKG as follows: Interpretation: Sinus Rhythm (Rate is 90. OR interval is 1 6 4 ms. QS duration 84 ms. QT duration 348 ms. [place] is normal. EKG is unremarkable.) Treatment and Re-Evaluation :: Patient was informed of her EKG results and that she experienced a vasovagal episode. This was explained to her. She was discharged to home to follow-up with her youth liaison officer. Discharge Plan Triage Chief Complaint: Syncope ED Provider: Jono Scott Dx/Rx/DC Orders Clinical Impression: Vasovagal syncope Instructions: ED Fainting, Vagal Reaction Prescriptions: No Action Primary Care Provider: Care Physician,No Primary Referrals: Princess Berger DO [Med Staff - Active Staff] - Keep Karon appointment Care Physician,No Primary [Primary Care Provider] - Disposition Disposition: Home, Self Care
[2022-09-05 12:00] VITALS: BP 127/63; PULSE 76; RESP 15; O2SAT 98
== END 2022-09-05 12:01 | disposition home or self-care (01) ==
PROVIDERS: Emergency Provider Emergency Medicine; Visit Provider Emergency Medicine
DX: O99.891 Other specified diseases and conditions complicating pregnancy (principal); R55 Syncope and collapse; O99.333 Smoking (tobacco) complicating pregnancy, third trimester; Z3A.35 35 weeks gestation of pregnancy; F17.290 Nicotine dependence, other tobacco product, uncomplicated
CPT/HCPCS: 93005; 99282; J7030; A4216

== ENCOUNTER → 2022-09-11 | Outpatient (CLI) | payer MEDICAID, SELFPAY ==
[2022-09-11 11:21] LABS: Absolute Lymphocyte Count 1.85 X10^3/uL (0.83-4.51); Absolute Neutrophil Count 6.3 X10^3/uL (2.0-7.7); Basophil# 0.04 X10^3/uL; Basophil% 0.4 % (0-1); Eosinophil# 0.18 X10^3/uL; Hematocrit 32.6 % (37-47); Hemoglobin 10.5 g/dL (12.0-15.0); Lymphocyte # 1.85 X10^3/ul (0.83-4.51); Lymphocyte % 20.3 % (19-41); Mean Corp Hgb Conc 32.2 g/dL (32-36); Mean Corpuscular Hgb 26.6 pg (27.0-32.0); Mean Corpuscular Volume 82.7 fL (81-99); Mean Platelet Vol. 9.5 fl (6.2-12.0); Monocyte# 0.73 X10^3/uL; NRBC Flagged by Analyzer 0 % (0-5); Neutrophil # 6.29 X10^3/uL (2.7-7.7); Platelet Count 233 K/mm3 (150-450); RBC Distribution Width CV 12.6 % (11.6-14.6); RBC Distribution Width SD 38.5 fl (35.1-43.9); Red Blood Count 3.94 M/mm3 (4.2-5.4); White Blood Count 9.1 K/mm3 (4.4-11.0)
[2022-09-11 11:34] LABS: ALB/GLOB Ratio 0.6 RATIO (0.9-2.4); AST(SGOT) 14 U/L (15-37); Alanine Aminotransfer ALT/SGPT 17 U/L (13-56); Albumin, Serum 2.6 g/dL (3.2-5.0); Alkaline Phosphatase 145 U/L (45-117); Anion Gap 9 (5-15); BUN 10 mg/dL (7-18); BUN/Creat Ratio 15.4 RATIO (10-20); Calcium,Total 8.8 mg/dL (8.5-10.1); Chloride 108 mmol/L (98-107); Creatinine, Serum 0.65 mg/dL (0.55-1.02); EST Glomerular Filtration Rate 119 mL/min (>60); Est Glom Filt Rate - Afr Amer 144 mL/min (>60); Globulin 4.1 g/dL (2.2-4.2); Glucose 104 mg/dL (74-106); Potassium 3.8 mmol/L (3.5-5.1); Protein, Total 6.7 g/dL (6.4-8.2); Sodium Level 139 mmol/L (136-145)
== END | disposition home or self-care (01) ==
LOC: WOBLAB 10:33
PROVIDERS: Visit Provider Obstetrics & Gynecology
DX: Z34.00 Encounter for supervision of normal first pregnancy, unspecified trimester (principal); Z3A.35 35 weeks gestation of pregnancy
CPT/HCPCS: 36415; 80053; 85025

== ENCOUNTER → 2022-10-03 | Outpatient (CLI) | payer MEDICAID, SELFPAY ==
[2022-10-03 12:17] LABS: Absolute Lymphocyte Count 1.64 X10^3/uL (0.83-4.51); Absolute Neutrophil Count 5.2 X10^3/uL (2.0-7.7); Basophil# 0.04 X10^3/uL; Basophil% 0.5 % (0-1); Eosinophil# 0.12 X10^3/uL; Eosinophils% 1.6 % (0-5); Hematocrit 32.4 % (37-47); Hemoglobin 10.2 g/dL (12.0-15.0); Lymphocyte # 1.64 X10^3/ul (0.83-4.51); Lymphocyte % 21.5 % (19-41); Mean Corp Hgb Conc 31.5 g/dL (32-36); Mean Corpuscular Hgb 25.8 pg (27.0-32.0); Mean Corpuscular Volume 81.8 fL (81-99); Mean Platelet Vol. 10.3 fl (6.2-12.0); Monocyte# 0.57 X10^3/uL; Monocyte% 7.5 % (0-10); NRBC Flagged by Analyzer 0 % (0-5); Neutrophil # 5.24 X10^3/uL (2.7-7.7); Neutrophil % 68.5 % (47-70); Platelet Count 248 K/mm3 (150-450); RBC Distribution Width CV 13.2 % (11.6-14.6); RBC Distribution Width SD 38.8 fl (35.1-43.9); Red Blood Count 3.96 M/mm3 (4.2-5.4); White Blood Count 7.6 K/mm3 (4.4-11.0)
[2022-10-03 12:32] LABS: ALB/GLOB Ratio 0.7 RATIO (0.9-2.4); AST(SGOT) 15 U/L (15-37); Alanine Aminotransfer ALT/SGPT 15 U/L (13-56); Albumin, Serum 2.6 g/dL (3.2-5.0); Alkaline Phosphatase 180 U/L (45-117); Anion Gap 7 (5-15); BUN 9 mg/dL (7-18); BUN/Creat Ratio 11.4 RATIO (10-20); Calcium,Total 8.8 mg/dL (8.5-10.1); Chloride 105 mmol/L (98-107); Creatinine, Serum 0.79 mg/dL (0.55-1.02); EST Glomerular Filtration Rate 95 mL/min (>60); Est Glom Filt Rate - Afr Amer 114 mL/min (>60); Globulin 3.8 g/dL (2.2-4.2); Glucose 92 mg/dL (74-106); LDH 188 U/L (84-246); Potassium 3.6 mmol/L (3.5-5.1); Protein, Total 6.4 g/dL (6.4-8.2); Sodium Level 138 mmol/L (136-145)
[2022-10-03 12:45] LABS: Protein, Urine (Random) 180.3 mg/dL (<11.9); Protein:Creat Ratio 472 mg/g CRE (0-200)
== END | disposition home or self-care (01) ==
LOC: WOBLAB 10:59
PROVIDERS: Visit Provider Obstetrics & Gynecology
DX: O13.3 Gestational [pregnancy-induced] hypertension without significant proteinuria, third trimester (principal); Z3A.00 Weeks of gestation of pregnancy not specified
CPT/HCPCS: 36415; 80053; 82570; 83615; 84156; 85025; 87086; 87088

== ENCOUNTER 2022-10-12 03:55 | Inpatient (IN) | payer MEDICAID, SELFPAY ==
[2022-10-12] VITALS (36 sets, daily range): BP systolic 98–136; BP diastolic 56–90; PULSE 74–110; RESP 16; TEMP 36.4–36.6; O2SAT 97–99; BMI 32.3
[2022-10-12 04:26] LABS: Absolute Lymphocyte Count 1.61 X10^3/uL (0.83-4.51); Absolute Neutrophil Count 8.3 X10^3/uL (2.0-7.7); Basophil# 0.04 X10^3/uL; Basophil% 0.4 % (0-1); Eosinophils% 0.9 % (0-5); Hematocrit 33.5 % (37-47); Hemoglobin 10.3 g/dL (12.0-15.0); Lymphocyte # 1.61 X10^3/ul (0.83-4.51); Mean Corp Hgb Conc 30.7 g/dL (32-36); Mean Corpuscular Hgb 25.5 pg (27.0-32.0); Mean Corpuscular Volume 82.9 fL (81-99); Mean Platelet Vol. 9.8 fl (6.2-12.0); Monocyte% 5.6 % (0-10); NRBC Flagged by Analyzer 0 % (0-5); Neutrophil # 8.32 X10^3/uL (2.7-7.7); Neutrophil % 77.6 % (47-70); Platelet Count 238 K/mm3 (150-450); RBC Distribution Width CV 13.2 % (11.6-14.6); RBC Distribution Width SD 40.1 fl (35.1-43.9); Red Blood Count 4.04 M/mm3 (4.2-5.4); White Blood Count 10.7 K/mm3 (4.4-11.0)
[2022-10-12] MEDS: Lactated Ringers 1,000 ML 50 ML IV (04:35)
[2022-10-12 05:36] LABS: Syphilis Antibodies Non-reactive
[2022-10-12] MEDS: LACTATED RINGERS 500 ML 999 ML IV (06:25)
[2022-10-12] MEDS: fentaNYL-bupivacaine (epidural) 100 ML BAG EPIDURAL (07:05)
--- NOTE | 2022-10-12 07:18 | PCM.HP.BLA ---
Documented by User: Dr. Princess Berger DO 10/12/22 07:19 History and Physical Date of Admission: 10/12/22 HPI: RETAIL MERCHANDISING COORDINATOR history: Medical history: Surgical history: Medications: Iron, vitamin Family history: No history of blood clots or bleeding disorders Allergies: No known drug allergies Social history: Denies tobacco, alcohol, drug use Review of system: Negative otherwise stated above Physical exam: Blood pressure 122/83, heart rate 93, oxygen saturation 98% on room air General: No acute distress HEENT HEENT: Normocephalic/atraumatic, PERRLA Cardiorespiratory: No increased effort Abdomen: Soft, nontender, gravid Extremities: No edema Neurologic: Cranial nerves II through XII grossly intact, no focal deficits Musculoskeletal: Strength out of 5 throughout extremities FHR: [place]: Assessment/plan:? Documented by User: Dr. Benny Berger MD 10/12/22 08:35 History and Physical Chief complaint: Contractions HPI: 22-year-old at 40 weeks and 2 days with MARC 10/10/2022 arrives with contractions. Denies headache, vision change, chest pain, shortness of breath, nausea vomit, right upper quadrant pain. Patient states good movement. is complicated by GBS positive, BMI 32 RETAIL MERCHANDISING COORDINATOR history: G1: Term male 7 pounds 5 ounces G2: Current Medical history: None Surgical history: Tonsillectomy Medications: Iron, vitamin Family history: No history of blood clots or bleeding disorders Allergies: No known drug allergies Social history: Former smoker, denies alcohol or drug use Review of system: Negative otherwise stated above Physical exam: Blood pressure 122/83, heart rate 93, oxygen saturation 98% on room air General: No acute distress HEENT HEENT: Normocephalic/atraumatic, PERRLA Cardiorespiratory: No increased effort Abdomen: Soft, nontender, gravid Pelvic exam: Cervical exam 5/70/-3. AROM clear fluid Extremities: No edema Neurologic: Cranial nerves II through XII grossly intact, no focal deficits Musculoskeletal: Strength out of 5 throughout extremities Labs: White count 10 point hemoglobin 10.3 hematocrit 33 5% platelets 38. RPR 9. Blood type a positive antibody negative Assessment/plan: 22-year-old G2, P1 at 40 weeks and 2 days called by nursing with cervical change and labor. Given verbal orders for admission and patient GBS positive for penicillin. Admit labor delivery CEFM GBS positive piperacillin AROM clear fluid Routine orders?
[2022-10-12] MEDS: Penicillin G 3,000,000 Units 50 ML 100 UNITS IV (09:21)
[2022-10-12] MEDS: Lactated Ringers 1,000 ML 200 ML IV (09:56)
[2022-10-12] MEDS: Oxytocin 10 UNITS/ML Vial IM (12:18)
[2022-10-12] MEDS: Oxytocin 15 Units/NS 250ml 15 UNITS/250 ML IV.SOLN 83 UNITS IV (12:20)
--- NOTE | 2022-10-12 12:25 | EX.PCM.OBRPT ---
Vaginal Delivery Findings Description of Procedure: Normal spontaneous vaginal delivery of a viable female infant, vertex MIKA. Head and shoulders delivered with ease. Cord clamped and cut. Baby handed off to patient. Placenta delivered via cord traction and fundal massage intact. IM and IV oxytocin initiated per protocol. No lacerations noted. EBL 250 cc Apgars 8/9
[2022-10-12] MEDS: Acetaminophen 500 MG Tablet 1000 MG PO ×2 (13:27→21:26)
[2022-10-12] MEDS: 0.9% Saline Lock 10 ML Syringe IV (15:48)
[2022-10-13 00:23] VITALS: BP 107/60; PULSE 80; RESP 14; TEMP 36.3
[2022-10-13 04:28] VITALS: BP 128/73; PULSE 81; RESP 16; TEMP 35.9
[2022-10-13 08:12] VITALS: BP 136/86; BP 140/84; PULSE 72; RESP 16; TEMP 36.2; O2SAT 100
[2022-10-13 08:13] VITALS: BP 136/86; PULSE 79
[2022-10-13] MEDS: Ibuprofen 600 MG Tablet PO (08:19)
--- NOTE | 2022-10-13 10:03 | DCINST_ITS ---
Discharge Instructions Diet Discharge Diet: No restrictions Activity Discharge Activity: Return to Normal Activity, May Drive and May Shower May resume sexual activity in: 4-6 weeks Weight Bearing Status: Weight bearing as tolerated Dressing / Incision Call your doctor if your incision/area has: Continuous Slow Oozing and Foul Smelling Discharge Call your doctor if you observe: Fever of 101 or Higher, Shortness of breath and Chest pain Follow Up Care Please Follow Up With: Benny Berger MD When: 4-6 weeks Test Results: Test results from this visit will be discussed in further detail at your follow- up appointment, if applicable. Discharge Plan Admission Admit Date/Time: 10/12/22 03:55 Attending Provider: Benny Berger Primary Care Provider: Care Physician,No Primary Discharge Orders/Prescriptions Prescriptions: No Action ferrous sulfate [iron] 325 mg (65 mg iron) Tablet 325 mg PO DAILY Referrals / Follow Up: Care Physician,No Primary [Primary Care Provider] - Disposition Discharge Orders: Discharge Patient (Routine); Ordered 10/13/22 Ordered By: Dr. Benny Berger
--- NOTE | 2022-10-13 10:04 | PCM.PN.OB ---
Subjective Subjective No overnight complaints Objective Data Objective Data Vital Signs: Vital Signs Temp Pulse Resp BP Pulse Ox O2 Del Method 97.2 F L 79 16 136/86 H 100 Room Air 10/13/22 08:12 10/13/22 08:13 10/13/22 08:12 10/13/22 08:13 10/13/22 08:12 10/13/22 08:12 Oxygen Delivery Method Room Air Weight: 182 lb 12.8 oz Body Mass Index (BMI) 32.3 Intake & Output: Intake and Output for Last 24 Hours 10/11/22 10/12/22 10/13/22 23:59 23:59 23:59 Intake Total 3747.46 / 3747.46 Output Total 900 / 900 Balance 2847.46 / 2847.46 Lab / Micro Data Result Diagrams: 10/12/22 04:15 Physical Exam Const alert, oriented x3, no apparent distress, average body habitus, healthy appearing and well nourished HEENT normocephalic and moist oral mucous membranes Eyes PERRL Resp normal respiratory effort, no retractions and no use of accessory muscles GI GI Narrative: Soft, nontender, uterus firm and below umbilicus Extremity normal to inspection, full ROM and no clubbing, cyanosis or edema Neuro moves all extremities and no focal motor deficits Psych mental status grossly normal, affect normal, speech normal and activity/motor behavior normal Assessment & Plan (1) Vaginal delivery: PLAN: day 1. Formula feeding. Pain well controlled. Educated patient on recovery and expectations. Okay to discharge home today if okay with traffic police officer
[2022-10-13] MEDS: Acetaminophen 500 MG Tablet 1000 MG PO (11:11)
[2022-10-13 15:14] VITALS: BP 116/84; PULSE 94; PULSE 96; RESP 16; TEMP 36.1; O2SAT 99
--- NOTE | 2022-10-13 16:47 | CASEMGMT ---
Social Work Assessment Labor and Delivery Unit Date/Time of Referral: 10/12/22, 19:29 Referred by: Dr. Benny Berger Date/Time of Intervention: 10/13/22, 10:30am Reason for referral: resources, FOB incarcerated History obtained from: MOB, FONadiya's mother and aunt present, along w/MOB's first child Abbe, SW asked them to leave so SW could speak w/MOB. Household composition: MOB, son Abbe(age 3), ANGEL's parents, and now baby Jenna. [facility]. [facility]EL normally lives [facility] also, went to [facility] days ago for not going to see his PO. As per MOB, he will get out in October. He was allowed to come see mom and baby in hospital yesterday. MOB and ANGEL have been together for 5 years. Parent/guardian status: MOB is guardian of both children. Medical History: MOB: No significant history. Baby: born 10/[birth year] at 12:14, 4105 grams, Apgars 8 and 9 at one and five minutes. Educational Status: MOB completed high school, ANGEL completed 10th grade Financial Status: None. 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 Infant Supplies: MOB states they have all needed supplies including crib, car seat, clothing,diapers, wipes, bottles, formula. She has WIC already. Childcare/Caregivers: ANGEL's parents, aunt Transportation: family drives MOB for appts Programs/Agencies Involved: [facility] Children's Services/Legal Issues: No Children's Services issues. [facility]GEL is currently in [facility] for not seeing his PO. SW asked several times and MOB did eventually explain that he was originally in [facility] for 6 months for stealing his boss's credit card. Behavioral Health history: MOB: stats no history of substance abuse for her, no mental health history. No tox screens on this admission completed for MOB or baby. She states her physician thought she had PPD after her first but she states she did not. FOB: History of meth use, has not used since March of last year. She reports no mental health concerns for FONadiya. SW asked if she has any safety concerns when ANGEL gets out of [facility], she states no. Family/Social Stressors: Currently ANGEL is in [facility]. Support systems: FOB's family, his parents and aunt. MOB's family is in [place] but will stop to see them on their way through. Depression/Anxiety/Shaken Baby/Safe Sleeping/Help Me Grow/Mental Health Resources: Information given on all of these topics, and reviewed information. SW reviewed information in particular about depression and anxiety, spoke to her about reaching out to her RN BURN should she have any symptoms, explained that doctors at times will put patients on mood stabilizers short term should they have signs of . SW also gave MOB a list of local counseling agencies if needed. MOB states understanding. Assessment: When SW walked in, family in room holding baby. MOB did not interact w/baby while SW was in the room. MOB did answer questions, but questions SW asked in regard to FONadiya and his arrests she did not answer initially. SW asked a few times before she explained why he is in [facility] and why he has a nursing officer. MOB does seem to have good family support at this time. Plan: Baby to go home w/MOB and family at discharge. No further social service needs anticipated at this time. YESSI Vazquez
== END 2022-10-13 15:25 | disposition home or self-care (01) | DRG 560 ==
LOC: WPOUT 03:56 → WP 03:56
PROVIDERS: Admitting Provider Obstetrics & Gynecology; Referring Provider Obstetrics & Gynecology; Visit Provider Obstetrics & Gynecology
DX: O99.824 Streptococcus B carrier state complicating childbirth (principal); Z37.0 Single live birth; Z3A.40 40 weeks gestation of pregnancy; Z87.891 Personal history of nicotine dependence
CPT/HCPCS: 59025; 59050; 85025; 86780; 86850; 86900; 86901; 99221; J7120; A4216; G0378

== ENCOUNTER 2023-07-26 20:35 | Emergency (ER) | payer MEDICAID, SELFPAY ==
[2023-07-26 20:37] VITALS: BP 111/83; PULSE 92; RESP 15; TEMP 36.8; O2SAT 97; BMI 29.5
--- NOTE | 2023-07-26 21:18 | EDS_ITS ---
HPI History of Present Illness Chief Complaint: Chest Pain Informant: patient Onset/Context/Timing Onset: Yesterday Timing: Intermittent Quality: Positive for Sharp Location: Left Chest Narrative Narrative: Patient presents with intermittent sharp chest pain to the left lateral lower ribs. Symptoms started last evening. She does not have pain with deep breath. She does not feel short of breath. It will occasionally be worse with movement but not consistently. She denies significant family history of heart disease. She does vape tobacco products and is on control. No personal or family history of blood clots. [facility] Medical History Chlamydia infection affecting Home Medications ferrous sulfate 325 mg (65 mg iron) tablet (iron) 325 mg PO DAILY Check with primary doctor 10/12/22 [History Last Taken 10/11/22 08:00] naproxen 500 mg tablet (Naprosyn) 500 mg PO BID PRN pain #20 tabs 07/26/23 [Rx Last Taken Unknown] Allergy/AdvReac Type Severity Reaction Status Date / Time No Known Allergies Allergy Verified 07/26/23 20:41 Surgical History History of tonsillectomy and adenoidectomy Social History household members: spouse and children Smoking Status: Former smoker substance use type: does not use ROS ROS ED Constitutional Constitutional ED: Denies chills or fever(s) ENT ENT ED: Denies rhinorrhea or sore throat Cardiovascular Cardiovascular: Reports chest pain; Denies palpitations Respiratory/Chest Respiratory/Chest: Denies cough or dyspnea Gastrointestinal Gastrointestinal: Denies abdominal pain, nausea or vomiting Musculoskeletal Musculoskeletal: Denies back pain or extremity pain Integumentary Denies Abrasions or rash Neurologic Neurologic: Denies headache(s) or weakness Psychiatric Psychiatric: Denies anxiety or depression Allergic/Immunologic Allergic/Immunologic ED: Denies lip swelling or urticaria EXAM Physical Exam Const Vital Signs: 07/26/23 20:37 07/26/23 21:31 07/26/23 21:53 Temperature 98.3 F Temperature Source Temporal Pulse Rate 92 87 Respiratory Rate 15 18 Blood Pressure 111/83 H 102/68 Blood Pressure Mean 92 79 Pulse Ox 97 99 99 Oxygen Delivery Method Room Air Room Air Room Air Positive well nourished and well developed General Appearance ED: well developed HEENT Reports moist mucous membranes Eyes EOMs intact bilaterally Chest Wall inspection of chest normal and palpation of chest normal Resp normal respiratory effort and clear to auscultation bilaterally Cardio regular rate and regular rhythm GI soft to palpation and non-tender Extremity normal to inspection Neuro oriented x3 and no sensory deficits noted Sensorium / Orientation: awake and alert Motor Exam: strength 5/5 throughout Psych mental status grossly normal Skin no rashes or lesions noted MDM MDM MDM Narrative Medical decision making narrative: Patient placed on cardiac rehab nurse. EKG obtained to evaluate for cardiac arrhythmia/ischemia. Chest x-ray obtained to evaluate for acute lung pathology, cardiac size, or mediastinal abnormality. IV line initiated. Labwork obtained to evaluate for leukocytosis, anemia, and electrolyte derangement. History & Record Review Discussion w/independent historian: Patient Lab Data Attestation: I reviewed the patient's lab results. Labs: Laboratory Results - last 24 hr 07/26/23 21:50 WBC 4.4 RBC 4.84 Hgb 12.8 Hct 38.5 MCV 79.5 L MCH 26.4 L MCHC 33.2 RDW Std Deviation 36.3 RDW Coeff of Mamadou 12.7 Plt Count 146 L MPV 8.8 Immature Gran % (Auto) 0.000 Neut % (Auto) 39.0 L Lymph % (Auto) 41.1 H [place] % (Auto) 13.0 H Eos % (Auto) 5.5 H Baso % (Auto) 1.4 H Absolute Neuts (auto) 1.7 L Absolute Lymphs (auto) 1.81 Nucleated RBC % 0 Differential Comment SCANNED D-Dimer Quant (PE/DVT) 0.93 H* Sodium 138 Potassium 3.4 L Chloride 107 Carbon Dioxide 28.0 Anion Gap 3 L BUN 7 Creatinine 0.68 Estim Creat Clear Calc 123.27 Est GFR (MDRD) Af Amer 137 Est GFR (MDRD) Non-Af 113 BUN/Creatinine Ratio 10.4 Glucose 103 Calcium 8.8 Troponin I High Sens 4 Radiography Chest X-Ray - ED: 2 View, Read by ED Physician, Normal, Heart, Lungs and Mediastinum Diagnostic Testing: Clinical Impression(s) from Imaging Studies Chest X-Ray 07/26/23 21:56 IMPRESSION: No evidence of active intrathoracic disease. Electronically Signed: Liset Holliday MD at 22:10 EST , Chest CTA 07/26/23 22:13 IMPRESSION: No evidence of pulmonary emboli. Electronically Signed: Liset Holliday MD at 23:17 EST , EKG Initial EKG: Attestation: I personally reviewed and interpreted this EKG as follows: Interpretation: Sinus Rhythm (Sinus 82 with no acute ischemia.) Differential Diagnosis Chest pain/SOB: pulmonary embolism Reason(s) PE less likely: Positive for Other (No CTA evidence of clot.), ACS ACS: Positive for no evidence of ACS based on cardiac biomarkers, EKG without ischemia and history not suggestive of ischemia pain, pneumothorax Reason(s) pneumothorax less likely: Positive for bilateral breath sounds and [employer] withhout PTX and pneumonia Reason(s) pneumonia less likely: Positive for no infiltrate on CXR, no elevation in WBC count and no noted fever Treatment and Re-Evaluation :: CBC was normal white count 4.4 with a hemoglobin of 12.8. Chemistry studies reveal slightly low potassium at 3.4. Troponin is normal at 4. D-dimer is elevated at 0.93. Two-view chest x-ray per my interpretation reveals no acute abnormalities. EKG is sinus rhythm with no evidence of ischemia. CTA of the chest obtained given her elevated D-dimer. This reveals no acute abnormalities and no evidence of pulmonary embolism. Test results discussed with the patient. I do believe she has either inflammation along the lining of her chest wall or along the border of the cartilage and rib in the left lower chest. I will treat her with a course of naproxen, first dose given here. Return instructions provided. Discharge Plan Triage Chief Complaint: Chest Pain ED Provider: Almaz Silver Dx/Rx/DC Orders Clinical Impression: Chest wall pain Instructions: ED Chest Pain, Uncertain Cause Prescriptions: New naproxen [Naprosyn] 500 mg tablet 500 mg PO BID PRN (Reason: pain) Qty: 20 0RF No Action ferrous sulfate [iron] 325 mg (65 mg iron) Tablet 325 mg PO DAILY Primary Care Provider: Care Physician,No Primary Referrals: Alisa Hough MD [Med Staff - Civil Division Commander Deputy Sheriff] - As Needed Care Physician,No Primary [Primary Care Provider] - Disposition Disposition: Home, Self Care
--- OUTSIDE RECORDS SUMMARY | 2023-07-26 21:29 | XMS RPT_ITS | CCD ---
Author Name Unknown Address [address] [place] [address] Organization [facility] Care Team Providers Care Recycling Program Manager Name Role Phone DAKOTA CELIS Attending Unavailable MERLIN SHAY Referring Unavailable MERLIN SHAY Primary Care Unavailable ADOLFO DUARTE Referring Unavailable BLACKMERLIN Primary Care Unavailable ZACHALMAZ Dove Attending Unavailable ZACHALMAZ Dove Referring Unavailable MERLIN SHAY Primary Care Unavailable DAVID MOSQUEDA Attending RUDI Koo Attending Unavailable ADOLFO DUARTE Referring Unavailable MERLIN SHAY Primary Care Unavailable Madie Tellez DO Primary Care Provider Madie Tellez DO A Primary Care Provider SHERRILL TELLEZA [place] Primary Care Unavailable NANCY MADIE A Primary Care Unavailable JUANA LÓPEZ Attending Unavailable NANCY MADIE A Primary Care Unavailable Medications Current Medications Medication Drug Class(es) Dates Sig (Normalized) Sig (Original) brompheniramine maleate 0.4 mg/ml / dextromethorphan hydrobromide 2 mg/ml / pseudoephedrine hydrochloride 6 mg/ml oral solution (3 sources) alpha-Adrenergic Agonist, Uncompetitive W-ly[place]utu-Q-aspartat e Receptor Antagonist, Sigma-1 Agonist Start: 11-21-2021 End: 03-06-2023 take 5 mL by mouth four times daily as needed Brompheniramine-P seudoeph-DM (BROMFED DM) 2-30-10 mg/5 mL syrup Indications: Viral illness Take 5 mL by mouth four times daily as needed. 118 mL 0 11/21/2021 03/06/2023 Discontinued Completed/Discontinued Medications Medication Drug Class(es) Dates Sig (Normalized) Sig (Original) Ethinyl Estradiol / norgestimate (6 sources) Progestin, Estrogen Start: 01-20-2019 norgestimate 0.25 mg-ethinyl estradiol 35 mcg (MONO-LINYAH) 0.25-35 mg-mcg per tablet Norgestimate-Ethiny l Estradiol Active 1 EA DAILY January 20, 2019 11:42am 0 01/20/2019 Active Problems Problem Classification Problem Date Documented Date Episodic/Chronic Immunizations and screening for infectious disease (4 sources) Patient encounter status; Translations: [Encounter for screening for infections with a predominantly sexual mode of transmission] Onset: 03-08-2023 03-06-2023 Episodic Viral infection (1 source) Viral disease; Translations: [Viral infection, unspecified] Episodic Results Test Name Value Interpretation Reference Range Facil ity Vital Signs Date Time Vital Sign Value Performing Clinician Faci lity 03-08-2023 10:15-0400 Body weight 69.49 kg Nurse Wstr Work Phone: [facility] 03-08-2023 10:15-0400 Diastolic blood pressure 60 mm[Hg] Nurse Wstr Work Phone: [facility] 03-08-2023 10:15-0400 Systolic blood pressure 90 mm[Hg] Nurse Wstr Work Phone: [facility] 03-06-2023 07:55-0400 Body height 160 cm Juana López APRN.HUMAN RESOURCES OFFICER Work Phone: [facility] 03-06-2023 07:55-0400 Body weight 68.95 kg Juana López APRN.HUMAN RESOURCES OFFICER Work Phone: [facility] 03-06-2023 07:55-0400 Diastolic blood pressure 60 mm[Hg] Juana López APRN.HUMAN RESOURCES OFFICER Work Phone: [facility] 03-06-2023 07:55-0400 Systolic blood pressure 100 mm[Hg] Juana López APRN.HUMAN RESOURCES OFFICER Work Phone: [facility] 11-21-2021 15:26-0400 Body temperature 98.1 [degF] Maribell Greenwood APRN.HUMAN RESOURCES OFFICER Work Phone: [facility] 11-21-2021 15:26-0400 Body weight 77.47 kg Maribell Praisler-Wood ORACLE APPLICATIONS DEVELOPER.HUMAN RESOURCES OFFICER Work Phone: [facility] 11-21-2021 15:26-0400 Diastolic blood pressure 80 mm[Hg] Maribell Praisler-Wood ORACLE APPLICATIONS DEVELOPER.HUMAN RESOURCES OFFICER Work Phone: [facility] 11-21-2021 15:26-0400 Heart rate 120 /min Maribell Praisler-Wood ORACLE APPLICATIONS DEVELOPER.HUMAN RESOURCES OFFICER Work Phone: [facility] 11-21-2021 15:26-0400 Respiratory rate 18 /min Maribell Praisler-Wood ORACLE APPLICATIONS DEVELOPER.HUMAN RESOURCES OFFICER Work Phone: [facility] 11-21-2021 15:26-0400 SaO2% (BldA) [Mass fraction] 97 % Maribell Mehtaisler-Wood ORACLE APPLICATIONS DEVELOPER.HUMAN RESOURCES OFFICER Work Phone: [facility] 11-21-2021 15:26-0400 Systolic blood pressure 110 mm[Hg] Maribell Praisler-Wood ORACLE APPLICATIONS DEVELOPER.[facility] Work Phone: [facility] Encounters Encounter Date Encounter Type Care Provider Facility Start: 05-08-2023 End: 05-08-2023 ambulatory [facility] Facility:[facility] Start: 03-08-2023 End: 03-08-2023 [facility] Facility:[facility] Start: 03-08-2023 End: 03-08-2023 Nursing evaluation of patient and report Nurse Canning Machine Operator [facility] Work Phone: OB/Gynecology Plan of Treatment Date Care Activity Detail Author Start: 11-11-2031 Urine microalbumin profile DTAP,TDAP,TD (8 - Td or Tdap) [facility] Start: 09-02-2023 9vhpv vacc 2/3 dose sched im use HPV VACCINE, 9-VALENT (GARDASIL 9) Immunization/Injecti on Routine Need for HPV vaccine Expected: 09/02/2023 (Approximate) [facility] Work Phone: Immunizations Immunization Date Immunization Notes Care Provider Crescencio hadley 03-08-2023 Human Papillomavirus 9-valent vaccine Nurse [facility] Work Phone: [facility] Work Phone: 11-10-2021 tetanus toxoid, redu jen diphtheria toxoid, and acellular pertussis vaccine, adsorbed Juana López APRN.[facility] Work Phone: [facility] Work Phone: 02-23-2016 meningococcal polysaccharide (groups A, C, Y and W-135) diphtheria toxoid conjugate vaccine (MCV4P) Juana López APRN.[facility] Work Phone: [facility] Work Phone: 02-12-2011 tetanus toxoid, redu jen diphtheria toxoid, and acellular pertussis vaccine, adsorbed Juana López APRN.[facility] Work Phone: [facility] Work Phone: 02-12-2011 varicella virus vaccine Juana López APRN.[facility] Work Phone: [facility] Work Phone: 08-20-2003 diphtheria, tetanus toxoids and acellular pertussis vaccine, unspecified formulation Juana López APRN.[facility] Work Phone: [facility] Work Phone: 08-20-2003 measles, mumps and rubella virus vaccine Juana López APRN.[facility] Work Phone: [facility] Work Phone: 08-20-2003 poliovirus vaccine, inactivated Juana López APRN.[facility] Work Phone: [facility] Work Phone: 12-22-1999 haemophilus influenz ae type b vaccine, PRP-T conjugate Juana López APRN.[facility] Work Phone: [facility] Work Phone: 09-25-1999 diphtheria, tetanus toxoids and acellular pertussis vaccine, unspecified formulation Juana López APRN.[facility] Work Phone: [facility] Work Phone: 07-27-1999 measles, mumps and rubella virus vaccine Juana López APRN.[facility] Work Phone: [facility] Work Phone: 07-27-1999 varicella virus vaccine Juana López APRN.HUMAN RESOURCES OFFICER Work Phone: [facility] Work Phone: 1998 diphtheria, tetanus toxoids and acellular pertussis vaccine, unspecified formulation Juana López APRN.[facility] Work Phone: [facility] Work Phone: 1998 haemophilus influenz ae type b vaccine, PRP-T conjugate Juana López APRN.[facility] Work Phone: [facility] Work Phone: 1998 hepatitis B vaccine, pediatric or pediatric/adolescent dosage Juana López APRN.[facility] Work Phone: [facility] Work Phone: 1998 poliovirus vaccine, inactivated Juana López APRN.[facility] Work Phone: [facility] Work Phone: 1998 diphtheria, tetanus toxoids and acellular pertussis vaccine, unspecified formulation Juana López APRN.[facility] Work Phone: [facility] Work Phone: 1998 haemophilus influenz ae type b vaccine, PRP-T conjugate Juana López APRN.HUMAN RESOURCES OFFICER Work Phone: [facility] Work Phone: 1998 poliovirus vaccine, inactivated Juana López APRN.HUMAN RESOURCES OFFICER Work Phone: [facility] Work Phone: 1998 diphtheria, tetanus toxoids and acellular pertussis vaccine, unspecified formulation Juana López APRN.[facility] Work Phone: [facility] Work Phone: 1998 haemophilus influenz ae type b vaccine, PRP-T conjugate Juana Valenzuelaany GONZALEZ.HUMAN RESOURCES OFFICER Work Phone: [facility] Work Phone: 1998 hepatitis B vaccine, pediatric or pediatric/adolescent dosage Juana López CARLOS.HUMAN RESOURCES OFFICER Work Phone: [facility] Work Phone: 1998 poliovirus vaccine, inactivated Junaa Valenzuelaany GONZALEZ.HUMAN RESOURCES OFFICER Work Phone: [facility] Work Phone: 1998 hepatitis B vaccine, pediatric or pediatric/adolescent dosage Juana Valenzuelahrie CARLOS.HUMAN RESOURCES OFFICER Work Phone: [facility] Work Phone: NEGATED: Highlighted row has not occurred!03-08-2023 Human Papillomavirus 9-valent vaccine Nurse Ws Work Phone: [facility] Work Phone: Payers Date Payer Category Payer Medicaid [id number] 2022 Medicaid [id number] 2018 Medicaid [facility] MEDICAID [facility] PLAN MEDICAID [id number] 2018-Present [phone] [address] [place] [address] Medicaid [id number] 1998 Unknown [id number] 1998 Unknown [id number] 1971 Unknown [id number] 1971 Unknown [id number] Private Health Insurance [facility] [id number] Social History Date Type Detail Facility [facility] Start: 01-19-2019 End: 03-06-2023 Tobacco use and exposure Smokeless tobacco non-user [facility] Start: 1998 Sex Assigned At Not on file [facility] Start: 11-21-2021 End: 03-08-2023 History of Social function [facility] Start: 11-21-2021 End: 03-08-2023 Tobacco use panel [facility] National Score (1-10 0), lower number is lower risk Not on file [facility] Start: 1998 Sex Assigned At Female C [facility] Start: 11-23-2022 Gender identity Identifies as female gender (finding) [facility] Start: 11-23-2022 Sexual orientation Heterosexual (fin ding) [facility] Start: 03-06-2023 [facility] Work Phone: End: 07-01-2020 History of tobacco use Current smoker [facility] Work Phone: End: 07-01-2020 History of tobacco use Cigarette Smoker [facility] Work Phone: Start: 03-06-2023 End: 03-08-2023 Alcohol intake Lifetime non-drinker (finding) [facility] Clinical Notes 11-21-2021 to 05-08-2023 Patient InstructionsSofia Goodman LPN - 03/08/2023 10:14 AM EDTTelephone Encounter - Alyson Ryan RN - 03/06/2023 2:30 PM EDTTelephone Encounter - Almaz Davis RN - 03/06/2023 2:11 PM EDT Note Date & Type Note Facility 05-08-2023 Note HNO ID: [id number] Author: Camila Tripathi RN Service: ? Author Type: Registered Nurse Type: Progress Notes Filed: 05/08/2023 9:07 AM Note Text: Patient identified by name and date of . Rosibel Espinoza is here for her HPV 9 vaccination, injection # two of the series. Patient ?No Gardasil injection was given without incident. See immunizations for details of immunizations administered today. VIS sheet provided: Yes Patient advised to follow up in 4 months from the 2nd injection Provider Kelly Leblanc CNP was present in office at time of injection. CAMILA TRIPATHI RN [facility] 03-08-2023 Note HNO ID: [id number] Author: Sofia Goodman LPN Service: ? Author Type: ? Type: Progress Notes Filed: 03/08/2023 10:20 AM Note Text: Schedule for Gardasil injections: Routine schedule is 0,2, and 6 months Minimum intervals: 4 weeks between doses 1 and 2 12 weeks between doses 2 and 3 4 day 'elizabeth period' can be applied Gardasil Questions: Please note: if patient is overdue for a yearly exam, they will need to have yearly scheduled within the next 6 months at the time Gardasil is given. Was your last yearly exam more than 18 months ago? No. Are you ? No. Do you have an elevated temp? No. See immun/inj tab for lot #, expiration date. Juana López CNP present in office at time of injection. Sofia Goodman LPN [facility] 03-08-2023 Instructions Sofia Goodman LPN - 03/08/2023 10:17 AM EDT HUMAN PAPILLOMAVIRUS (HPV) What is HPV ? HPV (human papillomavirus) is a common virus that affects both females and males.Most types of HPV are harmless, do not cause any symptoms, and go away on their own. About 30 types of HPV are known as genital HPV since they affect the genital area.Some types are high risk and can cause cervical cancer or abnormal cells in the lining of the cervix that sometimes turn into cancer.Others are low risk and can cause genital warts and changes in the cervix that are benign (abnormal but noncancerous). WHO GETS GENITAL HPV ? Anyone who has any kind of sexual activity involving genital contact could get genital HPV. Because many people who have HPV may not show any signs or symptoms, they can transmit the virus without even knowing it. HPV is more common than you might think.In 2005, approximately 20 million Americans had genital HPV.More than 6 million new cases of genital HPV are diagnosed in the [place] every year. HOW DO I KNOW IF I HAVE HPV ? Because HPV may not show any signs or symptoms, you probably won't know you have it.Most women are diagnosed with HPV as a result of an abnormal Pap test.A Pap test (also known as a Pap smear) is part of a gynecological exam and helps detect abnormal cells in the lining of the cervix before they have the chance to become precancers or cervical cancer. Many cervical precancers (changes that could lead to cancer) are related to HPV and can be treated successfully if detected early.That's why early detection is so important. WHAT HAPPENS IF I GET HPV ? In most people, the body's defenses are enough to clear HPV. If not cleared by the body, some HPV types cause genital warts.Other types cause abnormal changes in the cells lining the cervix that can lead to precancers and even turn into cervical cancer later in life. CERVICAL CANCER WHAT IS CERVICAL CANCER ? Cervical Cancer is cancer of the cervix.The cervix is the part of the uterus that connects the upper part of the uterus (the womb) and the vagina. Cervical cancer is a serious condition that can be life threatening.When a woman becomes infected with certain high-risk types of HPV and does not clear the infection, abnormal cells can develop in the lining of the cervix. If not discovered early and treated, these abnormal cells can become cervical precancers and then possibly cancer.Most often this can take a number of years, although in rare cases it can happen within a year. WHO GETS CERVICAL CANCER ? About half of all females diagnosed with cervical cancer are between 35 and 55 years of age.What many of these women may not realize is that they were most likely exposed to one of the high-risk types of HPV during their teens and 20's. The [place] [employer] estimated that in 2005 there were 10,370 new cases of cervical cancer diagnosed in the [place], and 3,710 women from the disease. HOW DO I KNOW IF I HAVE CERVICAL CANCER ? The usual way to detect cervical cancer is through a Pap test.If the results of a Pap test indicate that you have abnormal cervical cells, it's important to follow your healthcare professional's recommendations for more testing, such as repeat Pap testing, HPV DNA testing, colposcopy (examination of the cervix through a magnifying device), and possible biopsy (obtaining a tissue sample for analysis in the lab). HOW IS CERVICAL CANCER TREATED ? The three main methods are surgery (an operation to remove the cancer), radiation therapy (using high energy beams to destroy cancer cells), and chemotherapy (using medications to disrupt the growth of cancer cells). Sometimes treatment includes two or more of these methods. Before choosing a treatment, a healthcare professional will consider the size of the cancer, whether it has spread, the woman's age and overall health, and patient preferences.The treatment that is right for one person may not be right for someone else. ABNORMAL CERVICAL CELLS WHAT ARE ABNORMAL CERVICAL CELLS ? Abnormal cervical cells (also called cervical dysplasia) are cells in the lining of the cervix that have changed in appearance. The more severe the cervical abnormality, the more likely it is that cervical cancer could develop in the future.Most often this can take a number of years, although in rare cases it can happen within a year. WHAT CAUSES ABNORMAL CERVICAL CELLS ? Abnormal cervical cells may have a number of different causes, such as an infection or inflammation, but are commonly caused by certain types of HPV (human papillomavirus). HOW DO I KNOW IF I HABE ABNORMAL CERVICAL CELLS ? The usual way to detect abnormal cervical cells is through a Pap test.You may have additional testing, such as repeat Pap testing, HPV DNA testing, colposcopy, and possible biopsy. An abnormal biopsy result may be reported as HEBER (cervical intraepithelial neoplasia). The term HEBER, along with a number (1 to 3), describes how much of the thickness of the lining of the cervix contains abnormal cells.A diagnosis of HEBER 3 means there are severely abnormal cervical cells through the entire thickness of the lining of the cervix. HOW ARE ABNORMAL CERVICAL CELLS TREATED ? Most abnormal cells in the lining of the cervix will eventually go away on their own.If the abnormalities are mild, the healthcare professional may choose to closely monitor them. If the abnormalities are more severe, removing these cells can almost always prevent cervical cancer from developing in the future. Methods commonly used to treat abnormal cervical cells include freezing, removing them using an electrical instrument, and conventional surgery. The treatment may have to be repeated if the abnormal cells reappear. GENITAL WARTS WHAT ARE GENITAL WARTS ? Genital warts are flesh-colored growths that are most often caused by certain types of HPV.Genital warts most often appear on the external genitals or near the anus of females and males.Less commonly, genital warts can appear inside the vagina and on the cervix. WHO GETS GENITAL WARTS ? Anyone who has any kind of sexual activity involving genital contact could get genital HPV, and certain types of HPV can develop into genital warts.Because many people who have HPV may not show any signs or symptoms, they can transmit the virus without even knowing it.After sexual contact with an infected person, genital warts may appear within weeks, months, years, or not at all. Genital warts are very common. It is estimated that in 2002, there were over 260,000 new cases of genital warts in the [place] alone. HOW DO I KNOW IF I HAVE GENITAL WARTS ? A healthcare professional can usually recognize genital warts just by seeing them. Genital warts often do not cause symptoms. In some cases; however, they may cause burning, itching, or pain. HOW ARE GENITAL WARTS TREATED ? Genital warts sometimes disappear on their own without treatment. However, there is no way to tell if they will disappear or grow larger. A healthcare professional may choose to apply a special cream or solution to the warts. Alternatively, some genital warts can be removed by freezing, burning, or using a laser treatment. If these treatments don't work, they may be removed by surgery. There is a chance that genital warts can reappear after treatment, since the HPV that caused them may still be present. documented in this encounter [facility] 03-08-2023 History of Presen t illness Narrative Schedule for Gardasil injections: Routine schedule is 0,2, and 6 months Minimum intervals: 4 weeks between doses 1 and 2 12 weeks between doses 2 and 3 4 day 'elizabteh period' can be applied Gardasil Questions: Please note: if patient is overdue for a yearly exam, they will need to have yearly scheduled within the next 6 months at the time Gardasil is given. Was your last yearly exam more than 18 months ago? No. Are you ? No. Do you have an elevated temp? No. See immun/inj tab for lot #, expiration date. Juana López CNP present in office at time of injection. Sofia Goodman LPN documented in this encounter [facility] 03-06-2023 Miscellaneous Notes Patient notified and appointment scheduled. Alyson Rayn RN Attempted to notify patient. No answer and unable to leave a message. Mailbox is full. Almaz Davis RN Orders filed. She can schedule nurse visit. Juana López APRN.CNP Orders pending for HPV vaccine. Patient is calling back to let provider know she has not had any of the HPV vaccines. Please advise the patient. documented in this encounter [facility] 03-06-2023 Note HNO ID: [id number] Author: Juana López APRN.CNP Service: ? Author Type: Nurse Practitioner Type: Progress Notes Filed: 03/06/2023 8:45 AM Note Text: Manager Export offered: Patient declines. Rosibel is a 22 year old who presents for an annual gynecologic exam without complaints. Transfer from [place]. [facility] October 12, 2022. Is not . Menses: cycles every 28-30 days and 4-5 days of flow. Contraception: combined hormonal contraceptives HPV vaccine: thinks she did, will check with mother Last Pap: 03/13/2022 normal [place] HPV: negative History of abnormal pap: No Last mammogram: never Sexually active: Yes History of STDS: chlamydia and trichomonas Patient concerns for STD exposure: No. Time with current partner: 5 years Pain with intercourse: No Postcoital bleeding: No OB History T2 L2 SAB0 IAB0 Ectopic0 Multiple0 Live Births2 Nursing Home Assistant Administrator History LMP: 02/11/2023, Having periods Age at Menarche: Age at First : Age at Menopause: Nursing Home Assistant Administrator History Comments: Sexual Activity: Yes; Male Contraception: Pill PAST MEDICAL HISTORY Diagnosis Date NEGATIVE MEDICAL HISTORY PAST SURGICAL HISTORY Procedure Laterality Date REMOVE TONSILS/ADENOIDS,12+ Y/O FAMILY HISTORY Problem Relation Age of Onset Lung Cancer Paternal Grandfather tobacco orally SOCIAL HISTORY Social History Tobacco Use Smoking status: Former Types: Cigarettes Quit date: 2020 Years since quittin.6 Smokeless tobacco: Never Vaping Use Vaping Use: current everyday user Start date: 10/29/2020 Substances: Nicotine Substance Use Topics Alcohol use: Never Drug use: Never REVIEW OF SYSTEMS Abdomen: No abdominal pain, nausea, vomiting, diarrhea, or constipation. No bloating, early satiety, indigestion, or increased flatulence. Bladder: No dysuria, gross hematuria, urinary frequency, urinary urgency, or incontinence. Breast: No breast lumps, nipple d/c, overlying skin changes, redness or skin retraction. Allergies and current medication updated:Yes EXAM: BP 100/60 Ht 5' 3 (1.60m) Wt 152 lb (68.9kg) LMP 02/11/2023 BMI 26.93 kg/(m2). GENERAL: pleasant, female in no apparent distress HEENT: Normocephalic, atraumatic, mucus membranes moist, and no lesions NECK: Supple, full range of motion, no adenopathy, and thyroid normal DERMATOLOGY: Normal, without lesions, non-icteric, and non-hirsute BREAST: soft, non-tender, symmetric, no dominant mass, normal nipple-areolar complex, no lymphadenopathy, and no nipple discharge CHEST: Normal inspiratory effort ABDOMEN: soft, non-tender, and no masses PELVIC: external genitalia normal, normal Bartholin's glands, urethra, [place]'s glands, no vulvar lesions, no cervical lesions, good vaginal support, physiologic discharge present, normal appearing perineal body and perianal region BIMANUAL: uterus normal size, shape and consistency, no adnexal masses, and non-tender RECTOVAGINAL: deferred. NEURO: alert and oriented x3,exam grossly non-focal EXTREMITIES: normal ASSESSMENT/PLAN: 1) Health maintenance: Pap/HPV up to date. Nutrition, exercise and routine health maintenance exams reviewed. Smoking cessation: Benefits of smoking cessation reviewed. Patient encouraged to avoid smoking. HPV vaccine: thinks she did but will check with mother since it is not visible under immunizations. 2) Contraception: combined hormonal contraceptives. Contraceptive options reviewed and information provided. 3) STD screening: Accepted STD check for Gonorrhea and Chlamydia. 4) Follow up one year or sooner as needed Juana López APRN.CNP [facility] 03-06-2023 Instructions Juana López APRN.CNP - 03/06/2023 8:19 AM EDT HPV or Gardisil vaccine documented in this encounter [facility] 03-06-2023 History of Presen t illness Narrative Manager Export offered: Patient declines. Rosibel is a 22 year old who presents for an annual gynecologic exam without complaints. Transfer from [place]. [facility] October 12, 2022. Is not . Menses: cycles every 28-30 days and 4-5 days of flow. Contraception: combined hormonal contraceptives HPV vaccine: thinks she did, will check with mother Last Pap: 03/13/2022 normal [place] HPV: negative History of abnormal pap: No Last mammogram: never Sexually active: Yes History of STDS: chlamydia and trichomonas Patient concerns for STD exposure: No. Time with current partner: 5 years Pain with intercourse: No Postcoital bleeding: No OB History T2 L2 SAB0 IAB0 Ectopic0 Multiple0 Live Births2 Nursing Home Assistant Administrator History LMP: 02/11/2023, Having periods Age at Menarche: Age at First : Age at Menopause: Nursing Home Assistant Administrator History Comments: Sexual Activity: Yes; Male Contraception: Pill PAST MEDICAL HISTORY Diagnosis Date NEGATIVE MEDICAL HISTORY PAST SURGICAL HISTORY Procedure Laterality Date REMOVE TONSILS/ADENOIDS,12+ Y/O FAMILY HISTORY Problem Relation Age of Onset Lung Cancer Paternal Grandfather tobacco orally SOCIAL HISTORY Social History Tobacco Use Smoking status: Former Types: Cigarettes Quit date: 2020 Years since quittin.6 Smokeless tobacco: Never Vaping Use Vaping Use: current everyday user Start date: 10/29/2020 Substances: Nicotine Substance Use Topics Alcohol use: Never Drug use: Never REVIEW OF SYSTEMS Abdomen: No abdominal pain, nausea, vomiting, diarrhea, or constipation. No bloating, early satiety, indigestion, or increased flatulence. Bladder: No dysuria, gross hematuria, urinary frequency, urinary urgency, or incontinence. Breast: No breast lumps, nipple d/c, overlying skin changes, redness or skin retraction. Allergies and current medication updated:Yes EXAM: BP 100/60 Ht 5' 3 (1.60m) Wt 152 lb (68.9kg) LMP 02/11/2023 BMI 26.93 kg/(m^2). GENERAL: pleasant, female in no apparent distress HEENT: Normocephalic, atraumatic, mucus membranes moist, and no lesions NECK: Supple, full range of motion, no adenopathy, and thyroid normal DERMATOLOGY: Normal, without lesions, non-icteric, and non-hirsute BREAST: soft, non-tender, symmetric, no dominant mass, normal nipple-areolar complex, no lymphadenopathy, and no nipple discharge CHEST: Normal inspiratory effort ABDOMEN: soft, non-tender, and no masses PELVIC: external genitalia normal, normal Bartholin's glands, urethra, [place]'s glands, no vulvar lesions, no cervical lesions, good vaginal support, physiologic discharge present, normal appearing perineal body and perianal region BIMANUAL: uterus normal size, shape and consistency, no adnexal masses, and non-tender RECTOVAGINAL: deferred. NEURO: alert and oriented x3,exam grossly non-focal EXTREMITIES: normal ASSESSMENT/PLAN: 1) Health maintenance: Pap/HPV up to date. Nutrition, exercise and routine health maintenance exams reviewed. Smoking cessation: Benefits of smoking cessation reviewed. Patient encouraged to avoid smoking. HPV vaccine: thinks she did but will check with mother since it is not visible under immunizations. 2) Contraception: combined hormonal contraceptives. Contraceptive options reviewed and information provided. 3) STD screening: Accepted STD check for Gonorrhea and Chlamydia. 4) Follow up one year or sooner as needed Juana López APRN.HUMAN RESOURCES OFFICER documented in this encounter [facility] 03-01-2023 Note HNO ID: [id number] Author: Almaz Davis RN Service: ? Author Type: ? Type: Progress Notes Filed: 03/01/2023 8:29 AM Note Text: Patient history updated in Epic. Records sent for scanning. Almaz Davis RN [facility] 02-28-2023 Note HNO ID: [id number] Author: Almaz Davis RN Service: ? Author Type: ? Type: Progress Notes Filed: 02/28/2023 5:43 PM Note Text: Received outside medical records from [place] [employer]. In nurse phone room. Almaz Davis RN [facility] 02-28-2023 History of Presen t illness Narrative Received outside medical records from [place] [employer]. In nurse phone room. Almaz Davis RN documented in this encounter [facility] 11-21-2021 Instructions Maribell Greenwood APRN.HUMAN RESOURCES OFFICER - 11/21/2021 3:52 PM EDT ASSESSMENT/PLAN: 1. Viral illness - ICD9: 079.99, ICD10: B34.9 - Discussed viral etiology and rationale for treatment. - Symptomatic treatment with prn analgesia - Supportive care with fluids and rest - COVID WITH FLUA+B, ROUTINE - BROMPHENIRAMINE-PSEUDOEPHEDRINE -DM 2 MG-30 MG-10 MG/5 ML ORAL SYRUP Maribell Greenwood APRN.SUZY - Meets symptom-based criteria for testing and is low risk. - COVID swab collected at time of office visit - Instructed to isolate pending test results - Discussed symptom monitoring and supportive care - Red flag symptoms requiring follow up discussed This patient encounter involved the screening or treatment of novel coronavirus infection (COVID-19). How to Manage Common Symptoms Associated with COVID for Adults Fever- Fever is a temperature over 100.4 F and can occur when the body is fighting an infection. To help treat a fever: Drink plenty of fluids and stay well hydrated. Eat small amounts of easy to digest food. Rest. Your body needs rest to recover, but getting up and moving around the house frequently is a good idea. You should try to continue doing your normal daily activities (bathing, toileting, grooming, cooking), though you will probably feel tired, and need to rest often. Avoid any heavy activity or exercise, as this will increase your body temperature. Dress in light clothing and stay covered in a light sheet. Keep the room temperature cool. Take a slightly warm (not cold or cool) bath, or apply damp washcloths to the forehead and wrists. Cough- Cough is a common symptom associated with COVID and can be bothersome. To help treat a cough: Stay well hydrated. Try warm water or tea with lemon and/or honey to help soothe the cough. Use a humidifier to add moisture to the air. Try a product with menthol, like a cough drop or a rub for your chest such as Vicks, which can help reduce cough. Try cough drops. Avoid smoking and other strong odors or perfumes. Try breathing exercises to keep your lungs open and clear. Take a big deep breath through your nose and hold for 5 seconds before slowly releasing. Repeat frequently, while you are awake. Congestion- Runny nose or nasal congestion can occur with COVID. Treatment can help relieve symptoms: Try OTC nasal saline spray, or nasal saline rinse to relieve mucus congestion. Nasal strips can help keep nasal passages open, to increase airflow. Elevating your head with an extra pillow in bed can help reduce congestion. Using a humidifier can increase moisture in the air, and make breathing easier. Sore Throat- Another common symptom with COVID, can be managed at home by: Stay well hydrated. Gargle with salt water mix teaspoon salt with 1 cup of warm water and gargle. This helps to loosen mucus in the back of the throat and may reduce discomfort. Try ice chips, popsicles or lozenges to soothe the throat. Nausea/Vomiting/Diarrhea- These are common symptoms, and staying hydrated is most important. If you are nauseous or vomiting, start with small sips of water every 10-15 minutes and increase as tolerated. You can try sucking an ice cube too. If tolerating, you can try pedialyte or Gatorade, or flat sprite or jeronimo-harrison. Start slowly and increase as you are able to. Instead of meals, try smaller, more frequent snacks. Try eating bland foods like crackers, toast, rice, and applesauce. Avoid spicy, greasy or fried foods and dairy containing foods. Even if you aren't feeling hungry due to lack of smell or taste, it is important to try to take in some food when you are able. After drinking and eating, rest in an upright position for up to two hours as needed to help decrease nauseous feelings. Try closing your eyes, avoid moving and watching TV. Avoid strong odors that can make you feel more nauseated. When to seek emergency medical attention Look for emergency warning signs for COVID-19. If having any of these symptoms, seek emergency medical care immediately: Trouble breathing Persistent pain or pressure in the chest New confusion Inability to wake or stay awake Bluish lips or face *This list is not all possible symptoms. Please call your medical provider for any other symptoms that are severe or concerning to you. Beginning Home Isolation Isolation is used to separate people infected with SARS-CoV-2, the virus that causes COVID-19, from people who are not infected. People who are in isolation should stay home until it s safe for them to be around others. In the home, anyone sick or infected should separate themselves from others by staying in a specific sick room or area and using a separate bathroom (if available). Isolation or Quarantine: What's the difference? Quarantine keeps someone who might have been exposed to the virus away from others. Isolation keeps someone who is infected with the virus away from others, even in their home. Who needs to isolate People who have COVID-19 People who have symptoms of COVID-19 and are able to recover at home People who have no symptoms (are asymptomatic) but have tested positive for infection with SARS-CoV-2 Steps to take Stay home except to get medical care Monitor your symptoms. Stay in a separate room from other household members, if possible Use a separate bathroom, if possible Avoid contact with other members of the household and pets Don t share personal household items, like cups, towels, and utensils Wear a mask when around other people, if you are able to When to seek emergency medical attention Look for emergency warning signs* for COVID-19. If someone is showing any of these signs, seek emergency medical care immediately: Trouble breathing Persistent pain or pressure in the chest New confusion Inability to wake or stay awake Bluish lips or face *This list is not all possible symptoms. Please call your medical provider for any other symptoms that are severe or concerning to you. Call 911 or call ahead to your local emergency facility: Notify the drying frame operator that you are seeking care for someone who has or may have COVID-19. Ending Home Isolation - When you can be around others after you had or likely had COVID-19 When you can be around others after you had or likely had COVID-19 If You Test Positive for COVID-19 (Isolation) Everyone, regardless of vaccination status: 1. Stay home for 5 days. Note: Day 0 is your first day of symptoms or the date of collection of a positive viral test if no symptoms. Day 1 is the first full day after symptoms developed or test specimen was collected. 2. If you have no symptoms or your symptoms are resolving after 5 days, you can leave your house. 3. Continue to wear a mask around others for 5 additional days. If you have a fever, continue to stay home until your fever resolves, even if it is longer than 5 days. If You Were Exposed to Someone with COVID-19 (Quarantine) If you: 1. Have been boosted OR 2. Completed the primary series of Pfizer or Moderna vaccine within the last 6 months OR 3. Completed the primary series of J&J vaccine within the last 2 months THEN: 1. Wear a mask around others for 10 days. 2. Test on day 5, if possible. If you develop symptoms get a test and stay home. If You Were Exposed to Someone with COVID-19 (Quarantine) If you: 1. Completed the primary series of Pfizer or Moderna vaccine over 6 months ago and are not boosted OR 2. Completed the primary series of J&J over 2 months ago and are not boosted OR 3. Are unvaccinated THEN: 1. Stay home for 5 days. After that continue to wear a mask around others for 5 additional days. 2. If you can't quarantine you must wear a mask for 10 days. 3. Test on day 5 if possible. If you develop symptoms get a test and stay home. I had COVID-19 or I tested positive for COVID-19 and I have a weakened immune system If you have a weakened immune system (immunocompromised) due to a health condition or medication, you might need to stay home and isolate longer than 10 days. Talk to your healthcare provider for more information. Your doctor may work with an infectious disease expert at your local health department to determine when you can be around others. How to Manage Common Symptoms Associated with COVID for Adults Fever- Fever is a temperature over 100.4 F and can occur when the body is fighting an infection. To help treat a fever: Drink plenty of fluids and stay well hydrated. Eat small amounts of easy to digest food. Rest. Your body needs rest to recover, but getting up and moving around the house frequently is a good idea. You should try to continue doing your normal daily activities (bathing, toileting, grooming, cooking), though you will probably feel tired, and need to rest often. Avoid any heavy activity or exercise, as this will increase your body temperature. Dress in light clothing and stay covered in a light sheet. Keep the room temperature cool. Take a slightly warm (not cold or cool) bath, or apply damp washcloths to the forehead and wrists. Cough- Cough is a common symptom associated with COVID and can be bothersome. To help treat a cough: Stay well hydrated. Try warm water or tea with lemon and/or honey to help soothe the cough. Use a humidifier to add moisture to the air. Try a product with menthol, like a cough drop or a rub for your chest such as Vicks, which can help reduce cough. Try cough drops. Avoid smoking and other strong odors or perfumes. Try breathing exercises to keep your lungs open and clear. Take a big deep breath through your nose and hold for 5 seconds before slowly releasing. Repeat frequently, while you are awake. Congestion- Runny nose or nasal congestion can occur with COVID. Treatment can help relieve symptoms: Try OTC nasal saline spray, or nasal saline rinse to relieve mucus congestion. Nasal strips can help keep nasal passages open, to increase airflow. Elevating your head with an extra pillow in bed can help reduce congestion. Using a humidifier can increase moisture in the air, and make breathing easier. Sore Throat- Another common symptom with COVID, can be managed at home by: Stay well hydrated. Gargle with salt water mix teaspoon salt with 1 cup of warm water and gargle. This helps to loosen mucus in the back of the throat and may reduce discomfort. Try ice chips, popsicles or lozenges to soothe the throat. Nausea/Vomiting/Diarrhea- These are common symptoms, and staying hydrated is most important. If you are nauseous or vomiting, start with small sips of water every 10-15 minutes and increase as tolerated. You can try sucking an ice cube too. If tolerating, you can try pedialyte or Gatorade, or flat sprite or jeronimo-harrison. Start slowly and increase as you are able to. Instead of meals, try smaller, more frequent snacks. Try eating bland foods like crackers, toast, rice, and applesauce. Avoid spicy, greasy or fried foods and dairy containing foods. Even if you aren't feeling hungry due to lack of smell or taste, it is important to try to take in some food when you are able. After drinking and eating, rest in an upright position for up to two hours as needed to help decrease nauseous feelings. Try closing your eyes, avoid moving and watching TV. Avoid strong odors that can make you feel more nauseated. When to seek emergency medical attention Look for emergency warning signs for COVID-19. If having any of these symptoms, seek emergency medical care immediately: Trouble breathing Persistent pain or pressure in the chest New confusion Inability to wake or stay awake Bluish lips or face *This list is not all possible symptoms. Please call your medical provider for any other symptoms that are severe or concerning to you. documented in this encounter [facility] 11-21-2021 History of Presen t illness Narrative SUBJECTIVE Rosibel Espinoza is a 21 year old female who presents with 2 days of symptoms that are stable. Symptoms include: Fever (?100.4F): Yes or Chills: Yes Cough: Yes Shortness of breath: No or Difficulty breathing: No Fatigue: Yes Muscle aches: Yes Headache: No New loss of smell or taste: No Sore throat: No Nasal congestion: No or Rhinorrhea: No Nausea: No or Vomiting: No Diarrhea: No OTC meds/remedies that patient has tried: None. High risk category assessment No high risk factors Exposures: Sick contacts? No Family or close contacts with confirmed/probable COVID-19 in last 14 days? No She reports that she has been smoking. She has never used smokeless tobacco. OBJECTIVE Physical Exam Vitals and nursing note reviewed. Constitutional: Appearance: Normal appearance. HENT: Right Ear: Tympanic membrane, ear canal and external ear normal. Left Ear: Tympanic membrane, ear canal and external ear normal. Nose: Nose normal. Mouth/Throat: Mouth: Mucous membranes are moist. Pharynx: Oropharynx is clear. Uvula midline. No oropharyngeal exudate or posterior oropharyngeal erythema. Cardiovascular: Rate and Rhythm: Normal rate and regular rhythm. Heart sounds: Normal heart sounds. Pulmonary: Effort: Pulmonary effort is normal. No respiratory distress. Breath sounds: Normal breath sounds. No wheezing or rales. Musculoskeletal: Cervical back: Neck supple. Lymphadenopathy: Cervical: No cervical adenopathy. Skin: General: Skin is warm and dry. Findings: No erythema or rash. Neurological: Mental Status: She is alert. ASSESSMENT/PLAN ASSESSMENT/PLAN: 1. Viral illness - ICD9: 079.99, ICD10: B34.9 - Discussed viral etiology and rationale for treatment. - Symptomatic treatment with prn analgesia - Supportive care with fluids and rest - COVID WITH FLUA+B, ROUTINE - BROMPHENIRAMINE-PSEUDOEPHEDRINE -DM 2 MG-30 MG-10 MG/5 ML ORAL SYRUP Maribell Greenwood APRN.CNP - Meets symptom-based criteria for testing and is low risk. - COVID swab collected at time of office visit - Instructed to isolate pending test results - Discussed symptom monitoring and supportive care - Red flag symptoms requiring follow up discussed This patient encounter involved the screening or treatment of novel coronavirus infection (COVID-19). documented in this encounter [facility] Diagnosis Encounter for gynecological examination (general) (routine) without abnormal findings- Primary Screen for STD (sexually transmitted disease) Screening examination for venereal disease [facility] Diagnosis Need for HPV vaccine- Primary Need for prophylactic vaccination and inoculation against other viral diseases [facility] Diagnosis Need for HPV vaccine Need for prophylactic vaccination and inoculation against other viral diseases documented in this encounter [facility] Summary Purpose Family History No Family History Records FoundNo Family History Records Found Advance Directives No Advanced Directives Records FoundNo Advanced Directives Records Found Health Concerns Infection Onset Date Last Indicated Resolved Time COVID-19 Rule-Out 11/21/2021 11/21/2021 Additional Source Comments INFORMATION SOURCE (unrecogn ized section and content) DATE CREATED AUTHOR AUTHOR'S ORGANIZ ATION 05/09/2023 [facility] Source Comments (unrecognize d section and content) In the event this informatio n is protected by the Federal Confidentiality of Alcohol and Drug Abuse Patient Records regulations: The Federal rules restrict any use of the information to criminally investigate or prosecute any alcohol or drug abuse patient.[facility] the event this information is protected by the Federal Confidentiality of Alcohol and Drug Abuse Patient Records regulations: The Federal rules restrict any use of the information to criminally investigate or prosecute any alcohol or drug abuse patient.[facility] the event this information is protected by the Federal Confidentiality of Alcohol and Drug Abuse Patient Records regulations: The Federal rules restrict any use of the information to criminally investigate or prosecute any alcohol or drug abuse patient.[facility] the event this information is protected by the Federal Confidentiality of Alcohol and Drug Abuse Patient Records regulations: The Federal rules restrict any use of the information to criminally investigate or prosecute any alcohol or drug abuse patient.[facility] the event this information is protected by the Federal Confidentiality of Alcohol and Drug Abuse Patient Records regulations: The Federal rules restrict any use of the information to criminally investigate or prosecute any alcohol or drug abuse patient.[facility] Reason for Visit (unrecogniz ed section and content) Reason Comments Received Outside Medical Records Reason Comments Yearly Exam Reason Comments Patient Update Reason Onset Date Comments Nurse Visit Gardasil Injection 03/08/2023 Care Teams (unrecognized sec tion and content) Recycling Program Manager Relationship Specialty Start Date End Date Madie Tellez DO [address] [place], [place] [id number] PCP - General Family Medicine 01/19/19 Recycling Program Manager Relationship Specialty Start Date End Date Madie Tellez DO [address] [place] [address] PCP - General Family Medicine 01/19/19 Recycling Program Manager Relationship Specialty Start Date End Date Madie Tellez DO [address] [place], [place] [id number] PCP - General Family Medicine 01/19/19 Recycling Program Manager Relationship Specialty Start Date End Date Madie TellezDO [address] [facility] [place] [address] PCP - General Family Medicine 01/19/19 FOR RECORDS PERTAINING TO PATIENTS WHO ARE OR HAVE BEEN ENROLLED IN A CHEMICAL DEPENDENCY/SUBSTANCEABUSE PROGRAM, SOME INFORMATION MAY BE OMITTED. This clinical summary was aggregated from multiple sources. Caution should be exercised in using it in the provision of clinical care. This summary normalizes information from multiple sources, and as a consequence, information in this document may materially change the coding, format and clinical context of patient data. In addition, data may be omitted in some cases. CLINICAL DECISIONS SHOULD BE BASED ON THE PRIMARY CLINICAL RECORDS. [facility]. provides no warranty or guarantee of the accuracy or completeness of information in this document.
[2023-07-26 21:31] VITALS: O2SAT 99
[2023-07-26 21:53] VITALS: BP 102/68; PULSE 87; RESP 18; O2SAT 99
[2023-07-26 21:55] LABS: Absolute Lymphocyte Count 1.81 X10^3/uL (0.83-4.51); Absolute Neutrophil Count 1.7 X10^3/uL (2.0-7.7); Basophil# 0.06 X10^3/uL; Basophil% 1.4 % (0-1); Eosinophil# 0.24 X10^3/uL; Eosinophils% 5.5 % (0-5); Hematocrit 38.5 % (37-47); Hemoglobin 12.8 g/dL (12.0-15.0); Lymphocyte # 1.81 X10^3/ul (0.83-4.51); Lymphocyte % 41.1 % (19-41); Mean Corp Hgb Conc 33.2 g/dL (32-36); Mean Corpuscular Hgb 26.4 pg (27.0-32.0); Mean Corpuscular Volume 79.5 fL (81-99); Mean Platelet Vol. 8.8 fl (6.2-12.0); Monocyte# 0.57 X10^3/uL; NRBC Flagged by Analyzer 0 % (0-5); Neutrophil # 1.72 X10^3/uL (2.7-7.7); POSITIVE MORPHOLOGY YES; Platelet Count 146 K/mm3 (150-450); RBC Distribution Width CV 12.7 % (11.6-14.6); RBC Distribution Width SD 36.3 fl (35.1-43.9); Red Blood Count 4.84 M/mm3 (4.2-5.4); White Blood Count 4.4 K/mm3 (4.4-11.0)
[2023-07-26 21:56] LABS: Differential Indicated SCAN CRITERIA MET
--- NOTE | 2023-07-26 21:56 | RAD_ITS ---
INDICATION: chest pain EXAMINATION/TECHNIQUE: X-RAY - XR Chest 2 Views COMPARISON: None. FINDINGS: LINES/DEVICES: None. LUNGS: No consolidation. No pneumothorax. MEDIASTINUM: Unremarkable. CARDIAC SILHOUETTE: Not enlarged. BONES AND SOFT TISSUES: No acute abnormalities. Scoliosis. RAD/Chest PA and Lateral IMPRESSION: No evidence of active intrathoracic disease. Electronically Signed: Liset Holliday MD at 22:10 EST ,
[2023-07-26 22:11] LABS: D-Dimer Quantitative (DVT/PE) 0.93 FEU/ug/m (0.27-0.49)
[2023-07-26 22:13] LABS: Differential Comment SCANNED
--- NOTE | 2023-07-26 22:13 | CT_ITS ---
STUDY: CTA CHEST REASON FOR EXAM: Female, 23 years old. cp, elevated d-dimer RADIATION DOSAGE (If Supplied By Facility): CTDIvol = ( 11.56 ) mGy, DLP = ( 346.14 ) mGycm TECHNIQUE: The examination was performed with the intravenous administration of IV 100mL Isovue-370. Post-processing of the angiographic images was performed, with multiplanar reformation and 3D reconstruction. Individualized dose optimization techniques were used for this CT. COMPARISON: None. FINDINGS: LUNGS: No consolidation. PLEURA: No pleural effusion. No pneumothorax. PULMONARY VESSELS: No pulmonary emboli identified. MEDIASTINUM: Unremarkable. HEART: Not enlarged. AORTA/GREAT VESSELS: Thoracic aorta is normal caliber. No aneurysm or dissection. UPPER ABDOMEN: No acute findings. BONES/SOFT TISSUES: No acute findings. Scoliosis. OTHER: None. CT/CTA Chest W/WO Contrast IMPRESSION: No evidence of pulmonary emboli. Electronically Signed: Liset Holliday MD at 23:17 [facility] ,
[2023-07-26 22:14] LABS: Anion Gap 3 (5-15); BUN 7 mg/dL (7-18); BUN/Creat Ratio 10.4 RATIO (10-20); Calcium,Total 8.8 mg/dL (8.5-10.1); Chloride 107 mmol/L (98-107); Creatinine, Serum 0.68 mg/dL (0.55-1.02); EST Glomerular Filtration Rate 113 mL/min (>60); Est Glom Filt Rate - Afr Amer 137 mL/min (>60); Estimated Creatinine Clearance 123.27 ml/min; Glucose 103 mg/dL (74-106); Potassium 3.4 mmol/L (3.5-5.1); Sodium Level 138 mmol/L (136-145); Troponin-I HS 4 pg/mL (3.0-54.0)
[2023-07-26 23:31] VITALS: BP 105/81; PULSE 79; RESP 14; O2SAT 98
[2023-07-26] MEDS: Naproxen 500 MG Tablet PO (23:31)
[2023-07-26 23:34] VITALS: BP 103/71; PULSE 65; RESP 14; O2SAT 99
== END 2023-07-26 23:35 | disposition home or self-care (01) ==
PROVIDERS: Emergency Provider Emergency Medicine; Visit Provider Emergency Medicine
DX: R07.89 Other chest pain (principal); F17.290 Nicotine dependence, other tobacco product, uncomplicated; Z79.3 Long term (current) use of hormonal contraceptives
CPT/HCPCS: 71046; 71275; 80048; 84484; 85025; 85379; 93005; 99284; Q9967; A4216